=== PATIENT | male | born 1965 | race Caucasian/White ===

== ENCOUNTER 2021-12-04 08:26 | Inpatient (IN) ==
[2021-12-04] MEDS ORDERED: ACETAMINOPHEN 1,000 MG/100 ML VIAL IV STA (09:01)
[2021-12-04] MEDS: SODIUM CHLORIDE 0.9% 500 ML IV SCH ×2 (09:25→17:34)
--- NOTE | 2021-12-04 09:37 | Emergency Department Note ---
Impression & Plan Prostate cancer metastatic to bone, Lower extremity weakness, Urinary retention ED Provider Note NAME: TAMARA MONTAÑO AGE: 56 SEX: M ARRIVES VIA: Walk-In INFORMANT: Patient ED PROVIDER(S): Kunal Singleton MD CHIEF COMPLAINT: Back pain, leg weakness, metstatic prostate cancer PLAN: Disposition: Admit MEDICAL DECISION MAKING: The patient is a pleasant 56-year-old gentleman with a past medical history of metastatic prostate cancer being treated with Firmagon and Xfevea plus apalutamide with history of spinal metastases L2 in T9 status post palliative radiation therapy in September 2021 who presents emerged department accompanied by his with worsening back pain now with new lower extremity weakness rapidly progressing since Saturday Being seen in this emergency department Saturday evening for constipation and urinary retention for which she received had a Malin catheter placed which she currently has and was treated with enemas that eventually were successful. He denies fevers, chills, cough, congestion. He reports he has been able to ambulate prior to this past weekend and his weakness did progress rapidly. He denies any falls. On arrival the patient is no distress, afebrile to vital signs. He has 2/5 strength of bilateral lower extremities. There is no clonus. Reflexes within normal limits. There is no saddle anesthesia. WBC and platelets within normal limits. H/H 8.2/25.1 decreased from 2 days ago. Chemistry without metabolic acidosis. LFTs unremarkable. CPK within normal limits. Lipase is not elevated. UA without convincing evidence of infection. COVID-19 RNA, GRUPO test was negative. CT of the CT L-spine and abdomen pelvis were negative for acute findings. Note is made of question of diarrheal illn ess/gastroenteritis however likely reflects recent treatment of constipation. Patchy bibasilar densities and trace bilateral pleural effusions have progressed in the setting of the patient's cancer. Note is made of the patient's known metastatic disease, which appears stable. Given the patient's worsening symptoms or lower extremity weakness he does agree with plan for admission for further evaluation. Case was discussed with Dr. Golden, [facility] hospitalist, who will evaluate the patient for admission. Triage Nursing notes reviewed and agree them. Prior medical records reviewed Vital Signs: reviewed and remarkable for no significant abnormalities Differential diagnosis: Infection, dehydration, metabolic abnormality, hypo/hyperglycemia, electrolyte disturbance, anemia, hypoxia, cardiac sources, intracerebral event, toxicologic, neurologic, as well as other pathologies. ER treatment provided: See below. Diagnostics interpreted by me: Cardiac Monitoring: An order for continuous cardiac monitoring was placed and demonstrated sinus tachycardia, 104 bpm, no ectopy. Laboratory studies: See below Imaging studies: See below Consultation(s): Dr. Golden, [facility] hospitalist HPI: The patient is a pleasant 56-year-old gentleman with a past medical history of metastatic prostate cancer being treated with Firmagon and Xfevea plus apalutamide with history of spinal metastases L2 in T9 status post palliative radiation therapy in September 2021 who presents emerged department accompanied by his with worsening back pain now with new lower extremity weakness rapidly progressing since Saturday Being seen in this emergency department Saturday evening for constipation and urinary retention for which she received had a Malin catheter placed which she currently has and was treated with enemas that eventually were successful. He denies fevers, chills, cough, congestion. He reports he has been able to ambulate prior to this past weekend and his weakness did progress rapidly. He denies any falls. ROS: See above HPI for pertinent positives & negatives. A total of 10 systems reviewed and were otherwise negative. VITALS:See Below PHYSICAL EXAMINATION: GENERAL: Awake, alert, in no distress HENT: Normocephalic, atraumatic. Oropharynx with dry mucous membranes and otherwise unremarkable.. EYES: Normal conjunctiva. Sclera non-icteric. NECK: Supple. No nuchal rigidity. FROM. No JVD. RESPIRATORY: Clear to auscultation. CARDIAC: Regular rate, normal rhythm. Extremities warm and well perfused. Pulses equal. ABDOMEN: Soft, non-distended. No tenderness to palpation. No rebound or guarding. No masses. RECTAL: Deferred. MUSCULOSKELETAL: Chest examination reveals no tenderness. The back is symmetrical on inspection without obvious abnormality. There is no CVA tenderness to palpation. No joint edema. LOWER EXTREMITIES: Calves are equal size bilaterally and non-tender. No edema. No discoloration. NEURO: 2/5 strength of bilateral lower extremities. Sensation intact to light touch. There is no saddle anesthesia. Reflex within normal limits. There is no clonus. SKIN: No rash or jaundice noted. Kunal Singleton MD Past Med/Surg History Medical History Diabetes Diverticulosis GERD (gastroesophageal reflux disease) Hyperlipidemia Hypertension Prostate cancer Biopsy on 08/30/20 Prostate cancer metastatic to bone Surgical History H/O shoulder surgery Left History of appendectomy History of surgery 4 iliac stents Family History Mother , 83yo Myocardial infarction Pacemaker CHF (congestive heart failure) Father , 62yo Lymphoma Brother Myocardial infarction Cardiac stents Dialysis patient Smoker Alcohol abuse Sister Cancer 6 sisters - none with cancer Son Urinary reflux Son Urinary reflux Social History Smoking Status: Current every day smoker Tobacco Type: Cigarettes Cigarettes Per Day: 1-2 PPD x 43 yrs; Tobacco Cessation Education Requested by Patient: Yes Hx Alcohol Use: No Hx Substance Use: No Preferred Language: Bahraini Communication Ability: Effective Visual Impairment: No Limitations 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 Required: No Beliefs That Will Affect Care: None marital status: Current Living Situation: Spouse current occupational status: employed current occupation: [employer] How many Children do You have: 2 Other Information That Helps Us Care for You: No Feels Safe at Home: Yes Safety Concerns: Feels Safe At This Time caffeine: Yes (2-3 cups/day) during the past year weight has: remained stable Assistive Devices: None Allergies Allergies Allergy/AdvReac Type Severity Reaction Status Date / Time No Known Allergies Allergy Unknown Verified 10/23/21 10:33 Home Meds Home Medications Medication Instructions Recorded Confirmed coenzyme Q10 100 mg capsule 200 mg PO DAILY 07/20/21 12/04/21 famotidine 40 mg tablet (Pepcid) 40 mg PO DAILY 07/20/21 12/04/21 loratadine 10 mg tablet 10 mg PO DAILY 07/20/21 12/04/21 rosuvastatin 20 mg tablet 20 mg PO DAILY 07/20/21 12/04/21 aspirin 81 mg tablet,delayed 81 mg PO DAILY 09/29/21 12/04/21 release oxycodone-acetaminophen 10 mg-325 1 tab PO Q4H PRN Pain 10/03/21 12/04/21 mg tablet (Percocet) dexamethasone 4 mg tablet 4 mg PO Q6H PRN Nausea 10/23/21 12/04/21 ondansetron HCl 8 mg tablet 8 mg PO Q8H PRN Nausea 10/23/21 12/04/21 prednisone 5 mg tablet 10 mg PO QAM 10/23/21 12/04/21 prochlorperazine maleate 10 mg 10 mg PO Q6H PRN Nausea 10/23/21 12/04/21 tablet gabapentin 300 mg capsule 300 mg PO BID 12/03/21 12/04/21 morphine 30 mg tablet,extended 30 mg PO BID 12/03/21 12/04/21 release naloxegol 25 mg tablet (Movantik) 25 mg PO QAM 12/03/21 12/04/21 Results & Data (ED) Vital Signs Vital Signs - 24 hr 12/04/21 08:28 12/04/21 09:18 12/04/21 09:18 Temperature 36.7 C Temperature Source Temporal Artery Scan Pulse Rate 104 H Pulse Rate [Apical] 96 H Pulse Rate from SpO2 Sensor Pulse Rhythm [Apical] Pulse Strength [Apical] Respiratory Rate 18 14 Respiratory Effort / Characteristics Non-Labored Spontaneous Respiratory Depth Normal Respiratory Pattern Regular Blood Pressure 117/61 Blood Pressure [Left Arm] 133/79 Blood Pressure Mean 79 Blood Pressure Mean [Left Arm] 97 Blood Pressure Position Sitting Blood Pressure Position [Left Arm] Pulse Oximetry 95 93 Oxygen Delivery Method Room Air Room Air Room Air Oxygen Flow Rate Sepsis Recent Fever Within 48 Hours No Sepsis New/Unexplained Change in Mental Status N/A Sepsis Action Taken by Nursing No Action Required Oxygen Flow Rate - Titration Pulse Oximetry Post Tiitration 12/04/21 09:25 12/04/21 09:30 12/04/21 09:30 Temperature Temperature Source Pulse Rate 89 Pulse Rate [Apical] Pulse Rate from SpO2 Sensor 91 H Pulse Rhythm [Apical] Pulse Strength [Apical] Respiratory Rate 18 Respiratory Effort / Characteristics Respiratory Depth Respiratory Pattern Blood Pressure 139/76 Blood Pressure [Left Arm] Blood Pressure Mean 97 Blood Pressure Mean [Left Arm] Blood Pressure Position Blood Pressure Position [Left Arm] Pulse Oximetry 87 L 94 Oxygen Delivery Method Nasal Cannula Nasal Cannula Oxygen Flow Rate 0 2 Sepsis Recent Fever Within 48 Hours Sepsis New/Unexplained Change in Mental Status Sepsis Action Taken by Nursing Oxygen Flow Rate - Titration 2 Pulse Oximetry Post Tiitration 94 12/04/21 10:00 12/04/21 10:00 12/04/21 10:30 Temperature Temperature Source Pulse Rate 84 Pulse Rate [Apical] Pulse Rate from SpO2 Sensor 84 Pulse Rhythm [Apical] Pulse Strength [Apical] Respiratory Rate 16 Respiratory Effort / Characteristics Respiratory Depth Respiratory Pattern Blood Pressure 129/73 114/66 Blood Pressure [Left Arm] Blood Pressure Mean 91 82 Blood Pressure Mean [Left Arm] Blood Pressure Position Blood Pressure Position [Left Arm] Pulse Oximetry 96 Oxygen Delivery Method Nasal Cannula Oxygen Flow Rate 2 Sepsis Recent Fever Within 48 Hours Sepsis New/Unexplained Change in Mental Status Sepsis Action Taken by Nursing Oxygen Flow Rate - Titration Pulse Oximetry Post Tiitration 12/04/21 10:30 12/04/21 11:00 Temperature Temperature Source Pulse Rate 89 Pulse Rate [Apical] 84 Pulse Rate from SpO2 Sensor 88 Pulse Rhythm [Apical] Regular Pulse Strength [Apical] Normal Respiratory Rate 17 18 Respiratory Effort / Characteristics Non-Labored Respiratory Depth Normal Respiratory Pattern Regular Blood Pressure Blood Pressure [Left Arm] 132/71 Blood Pressure Mean Blood Pressure Mean [Left Arm] 91 Blood Pressure Position Blood Pressure Position [Left Arm] Lying Pulse Oximetry 92 98 Oxygen Delivery Method Nasal Cannula Room Air Oxygen Flow Rate 2 Sepsis Recent Fever Within 48 Hours Sepsis New/Unexplained Change in Mental Status Sepsis Action Taken by Nursing Oxygen Flow Rate - Titration Pulse Oximetry Post Tiitration Laboratory Data Attestation: I reviewed the patient's lab results. Result diagrams: 12/04/21 22:08 12/04/21 09:15 Lab Results 12/04/21 12/04/21 12/04/21 Range/Units 09:15 09:15 09:15 WBC 5.69 (4.8-10.8) K/ul RBC 2.94 L (4.63-6.08) M/uL Hgb 8.2 L (14.0-18.0) g/dl Hct 25.1 L (40.1-51.0) % MCV 85.4 (80.0-100.0) fL MCH 27.9 (25.0-34.0) pg MCHC 32.7 (32.0-36.0) g/dL RDW Std Deviation 52.9 H (36.4-46.3) fL RDW Coeff of Jasmyn 17.2 H (11.5-14.5) % Plt Count 150 (130-400) K/uL MPV 9.1 L (9.4-12.4) fL Immature Gran % (Auto) 4.4 % Neut % (Auto) 78.8 % Lymph % (Auto) 6.7 % [place] % (Auto) 9.3 % Eos % (Auto) 0.4 % Baso % (Auto) 0.4 % Neut # (Auto) 4.49 (1.4-6.5) K/uL Lymph # (Auto) 0.38 L (1.2-3.4) K/uL [place] # (Auto) 0.53 (0.24-0.82) K/uL Eos # (Auto) 0.02 (0-0.50) K/uL Baso # (Auto) 0.02 (0-0.2) K/uL Immature Gran # (Auto) 0.25 H (0.00-0.02) K/uL Absolute Nucleated RBC 0.02 H (0-0) K/uL Nucleated RBC % (auto) 0.4 % Sodium 134 L (136-145) mmol/L Potassium 3.4 L D (3.5-5.1) mmol/L Chloride 98 (98-107) mmol/L Carbon Dioxide 28 (21-32) mmol/L Anion Gap 8 (3-11) BUN 11 (6-23) mg/dl Creatinine 0.61 (0.6-1.4) mg/dl Est Cr Clr Drug Dosing 120.6 ml/min Est GFR ( Amer) 128.5 ml/min Est GFR (Non-Af Amer) 110.9 ml/min BUN/Creatinine Ratio 18.0 (10-20) Glucose 110 H (70-99(Fasting)) mg/dl Calcium 7.7 L (8.5-10.1) mg/dl Phosphorus 3.2 (2.5-4.9) mg/dl Magnesium 2.0 (1.7-2.4) mg/dl Iron 53 (35-175) mcg/dl TIBC 218 L (250-450) mcg/dl Unsaturated IBC 165 (155-355) mcg/dl Transferrin % Sat 24 (20-50) % Total Bilirubin 0.4 (0.2-1.0) mg/dl AST 26 (13-39) U/L ALT 21 (7-52) U/L Alkaline Phosphatase 139 H (34-104) U/L Total Creatine Kinase 152 (30-223) U/L Total Protein 5.7 L D (6.0-8.3) gm/dl Albumin 3.1 L (3.4-5.0) gm/dl Globulin 2.6 (2.5-4.0) gm/dl Albumin/Globulin Ratio 1.2 (0.9-2) Lipase < 3 L (11-82) U/L Vitamin B12 (180-914) pg/ml Folate (>5.38) ng/ml Urine Color Urine Appearance (Clear) Urine pH (4.5-7.5) Ur Specific [place] (1.000-1.030) Urine Protein (Negative) Urine Glucose (UA) (Negative) Urine Ketones (Negative) Urine Blood (Negative) Urine Nitrite (Negative) Urine Bilirubin (Negative) Urine Urobilinogen (Negative) Ur Leukocyte Esterase (Negative) SARS-CoV-2, RNA, NAAT (NEGATIVE) 12/04/21 12/04/21 12/04/21 Range/Units 09:15 09:20 10:06 WBC (4.8-10.8) K/ul RBC (4.63-6.08) M/uL Hgb (14.0-18.0) g/dl Hct (40.1-51.0) % MCV (80.0-100.0) fL MCH (25.0-34.0) pg MCHC (32.0-36.0) g/dL RDW Std Deviation (36.4-46.3) fL RDW Coeff of Jasmyn (11.5-14.5) % Plt Count (130-400) K/uL MPV (9.4-12.4) fL Immature Gran % (Auto) % Neut % (Auto) % Lymph % (Auto) % [place] % (Auto) % Eos % (Auto) % Baso % (Auto) % Neut # (Auto) (1.4-6.5) K/uL Lymph # (Auto) (1.2-3.4) K/uL [place] # (Auto) (0.24-0.82) K/uL Eos # (Auto) (0-0.50) K/uL Baso # (Auto) (0-0.2) K/uL Immature Gran # (Auto) (0.00-0.02) K/uL Absolute Nucleated RBC (0-0) K/uL Nucleated RBC % (auto) % Sodium (136-145) mmol/L Potassium (3.5-5.1) mmol/L Chloride (98-107) mmol/L Carbon Dioxide (21-32) mmol/L Anion Gap (3-11) BUN (6-23) mg/dl Creatinine (0.6-1.4) mg/dl Est Cr Clr Drug Dosing ml/min Est GFR ( Amer) ml/min Est GFR (Non-Af Amer) ml/min BUN/Creatinine Ratio (10-20) Glucose (70-99(Fasting)) mg/dl Calcium (8.5-10.1) mg/dl Phosphorus (2.5-4.9) mg/dl Magnesium (1.7-2.4) mg/dl Iron (35-175) mcg/dl TIBC (250-450) mcg/dl Unsaturated IBC (155-355) mcg/dl Transferrin % Sat (20-50) % Total Bilirubin (0.2-1.0) mg/dl AST (13-39) U/L ALT (7-52) U/L Alkaline Phosphatase (34-104) U/L Total Creatine Kinase (30-223) U/L Total Protein (6.0-8.3) gm/dl Albumin (3.4-5.0) gm/dl Globulin (2.5-4.0) gm/dl Albumin/Globulin Ratio (0.9-2) Lipase (11-82) U/L Vitamin B12 250 (180-914) pg/ml Folate 6.04 (>5.38) ng/ml Urine Color Yellow Urine Appearance Clear (Clear) Urine pH 7.0 (4.5-7.5) Ur Specific [place] 1.004 (1.000-1.030) Urine Protein Negative (Negative) Urine Glucose (UA) Negative (Negative) Urine Ketones Negative (Negative) Urine Blood Negative (Negative) Urine Nitrite Negative (Negative) Urine Bilirubin Negative (Negative) Urine Urobilinogen Negative (Negative) Ur Leukocyte Esterase Negative (Negative) SARS-CoV-2, RNA, NAAT NEGATIVE (NEGATIVE) Administered Medications Gabapentin (Gabapentin 300 Mg Cap) 300 mg PO BID ANGEL Stop: 01/03/22 20:59 Last Admin: 12/04/21 21:48 Dose: 300 mg Documented By: MACIE Morphine Sulfate (Morphine Sulfate Cr 15 Mg Tabcr) 30 mg PO BID ANGEL Stop: 12/18/21 20:59 Last Admin: 12/04/21 21:47 Dose: 30 mg Documented By: MACIE Oxycodone/Acetaminophen (Oxycodone/Acetaminophen 10-325 Tab) 1 tab PO Q4H PRN PRN Reason: Pain Stop: 12/18/21 16:57 Last Admin: 12/04/21 18:42 Dose: 1 tab Documented By: QG Discontinued Medications Sodium Chloride (Nss) 500 mls @ 125 mls/hr IV .Q4H ANGEL Stop: 01/03/22 09:14 Last Admin: 12/04/21 17:34 Dose: Not Given Documented By: Infusion: 12/04/21 13:49 Dose: 0 mls/hr Documented By: Admin: 12/04/21 09:25 Dose: 125 mls/hr Documented By: DAIN Acetaminophen (Ofirmev) 1,000 mg in 100 mls @ 400 mls/hr IV NOW STA Stop: 12/04/21 09:15 Last Infusion: 12/04/21 09:40 Dose: 0 mls/hr Documented By: Admin: 12/04/21 09:25 Dose: 400 mls/hr Documented By: DAIN Ioversol (Optiray 320 500ml) 98 ml IV ONCE ONE Stop: 12/04/21 11:04 Last Admin: 12/04/21 11:04 Dose: 98 ml Documented By: DANNY Potassium Chloride (Potassium Chloride Crtab 20 Meq Tabcr) 40 meq PO NOW STA Stop: 12/04/21 13:08 Last Admin: 12/04/21 13:24 Dose: 40 meq Documented By: VY Imaging Data Radiologist's Impression: Abdomen/Pelvis CT 12/04/21 08:[address] WITH IV CONTRAST CT DOSE: HISTORY: Metastatic disease bilateral lower extremity weakness, back pain, retenti TECHNIQUE: Multiaxial CT images of the abdomen and pelvis were performed following the use of intravenous contrast. A dose lowering technique was utilized adhering to the principles of ALARA. COMPARISON STUDY: Abdomen and pelvis CT 12/02/2021. FINDINGS: There are trace bilateral pleural effusions which are new from the prior study. Patchy bilateral lower lobe densities have also slightly progressed. There is emphysema again noted at the lung bases. Small nodular densities along the right minor fissure remain stable. No pneumoperitoneum. No pneumatosis. Multifocal osteoblastic metastatic disease is similar to the prior CT examination. No acute fractures identified. There again noted a few scattered hypodense lesions within the liver. These are better appreciated on this examination likely due to the time of contrast. There are 2 tandem lesions identified. These likely represent metastatic disease. There are few punctate gallstones. No gallbladder wall thickening. The spleen and right adrenal gland are unremarkable. A 2.1 cm left adrenal gland nodules again noted. There are few prominent left para-aortic lymph nodes, unchanged. These are concerning for metastatic disease. The kidneys enhance normally. No hydronephrosis. Bilateral common iliac artery stents are patent. No pelvic lymphadenopathy. There is a Malin catheter within the bladder. There is mild bladder wall thickening. Fluid- filled nondilated loops of large and small bowel seen throughout the abdomen. No evidence for a bowel obstruction. IMPRESSION: 1. Redemonstration of the metastatic disease within the abdomen and pelvis as de scribed above. This is similar to the prior study. 2. Fluid-filled nondilated loops of large and small bowel. This can be seen in the setting of a gastroenteritis/diarrheal illness. No evidence for bowel obstruction. 3. Cholelithiasis. 4. Patchy bibasilar densities and trace bilateral pleural effusions have progressed. This could represent atelectasis or a pneumonia. 5. Bladder wall thickening. This may represent a cystitis. Recommend correlation with urinalysis. ACT 112: Negative or not required by law. Electronically signed by: Francisco Javier Navarrete M.D. 12/04/2021 12:[address] 12/04/21 08:58 CT cervical spine wo con CLINICAL HISTORY: 56 years-old Male with metstatic disease BLE weakness, back pain, retenti. Acute neck pain with upper extremity weakness in a patient with skeletal metastasis COMPARISON: CT thoracic spine of same day, MRI thoracic spine 11/14/2021 TECHNIQUE: Multiple axial CT images of the cervical spine were obtained without contrast. A dose lowering technique was utilized adhering to the principles of ALARA. FINDINGS: Multifocal osteoblastic skeletal metastasis redemonstrated. Mild superior endplate compression again noted at C7, T1 and T2 which is similar to the prior study. There is mild multilevel intervertebral disc space narrowing and spondylitic spurring with [id number] facet arthrosis. No acute fracture, subluxation or endplate erosion identified. No pneumothorax. Emphysematous changes of the lung apices without pneumothorax. There is no prevertebral edema of the cervical spine. There is however mild paravertebral edema of the upper thoracic spine which was also present on the comparison MRI. No high-grade central canal or neural foraminal narrowing of the cervical spine identified. IMPRESSION: 1. Multifocal osteoblastic skeletal metastasis redemonstrated. No acute pathologic fracture identified. 2. Unchanged appearance of the mild C7, T1 and T2 compression deformities. 3. Upper thoracic paravertebral edema is similar to the 11/14/2021 MRI exam. 4. Pulmonary emphysema. ACT 112: Negative or not required by law. The above report was generated using voice recognition software. It may contain grammatical, syntax or spelling errors. Electronically signed by: Rick Moreno M.D. 12/04/2021 11:[address] 12/04/21 08:58 CT lumbar spine wo con CLINICAL HISTORY: metstatic disease BLE weakness, back pain, retenti TECHNIQUE: Multidetector row helical CT of the lumbar spine was performed without administration of intravenous contrast. Coronal and sagittal reformations were obtained. Automated dose lowering techniques and/or adjustment according to patient size were utilized for this exam. Comparison: Comparison is made to CT abdomen pelvis 07/07/2021 FINDINGS: For counting purposes, the last complete intervertebral disc space is considered L5-S1.Numerous sclerotic foci are seen throughout the skeleton. These are stable to minimally enlarged from prior CT. For example, a 19 mm focus of the superior aspect of the L1 vertebral body previously measured 18 mm. Mild degenerative changes are seen most prominent at L3-L4. Please see CT abdomen pelvis for detailed findings of the soft tissues. IMPRESSION: Numerous sclerotic foci within the skeleton are stable to minimally enlarged from prior exam compatible with metastatic disease. No evidence of acute fracture. ACT 112: Negative or not required by law. Electronically signed by: Gonzalez Vallejo M.D. 12/04/2021 11:[address] 12/04/21 08:[address] DOSE: 2333.11 mGy.cm HISTORY: metastatic disease with bilateral lower extremity weakness, back pain, retention TECHNIQUE: Multiaxial CT images of the thoracic spine were performed and reformatted in the sagittal and coronal plane without the use of contrast. A dose lowering technique was utilized adhering to the principles of ALARA. COMPARISON: Outside hospital thoracic spine MRI 11/14/2021. FINDINGS: Redemonstration of the extensive multifocal osteoblastic metastatic disease seen throughout the thoracic spine. This is similar to the prior outside hospital thoracic spine MRI. Mild super endplate compression at C7, T1, T2, and T3 is similar to the prior study. This is likely chronic. No acute fractures identified within the thoracic spine. Paravertebral edema and soft tissue thickening from the T1-T8 level is again noted and is consistent with metastatic disease. This is best seen at the T5-T6 levels which demonstrates up to 8 mm of prevertebral soft tissue thickening. There is associated epidural soft tissue from the T3-T8 levels also consistent with metastatic disease. This epidural soft tissue results in [id number] central canal narrowing within the upper to mid thoracic spine most pronounced at the T5-T6 level. The transverse diameter of the thecal sac at this level is approximately 7 mm this is also similar to the prior study. There are trace bilateral pleural effusions. Emphysema. Patchy densities within the lung bases posteriorly may represent atelectasis. A pneumonia could also have a similar appearance. IMPRESSION: 1. Redemonstration of extensive multifocal osteoblastic metastatic disease seen throughout the thoracic spine and visualized ribs. This is similar to the prior outside hospital MRI. 2. There is also abnormal paravertebral and epidural soft tissue from the T1-T8 levels consistent with metastatic disease. The epidural component is most pronounced at the T5-T6 level which results in moderate central canal narrowing. This is also similar to the prior outside hospital MRI. 3. Trace bilateral pleural effusions. 4. Mild superior endplate compression deformities at C7, T1, T2, T3 are also similar to the prior study. No acute fractures identified. 5. Additional findings as described above. ACT 112: Negative or not required by law. Electronically signed by: Francisco Javier Navarrete M.D. 12/04/2021 12:15 PM Discharge Plan Visit Data Chief Complaint: Leg Weakness, Bilateral Stated Complaint: LEG PAIN, UNABLE TO MOVE ED Provider: Kunal Singleton Discharge Problem: Prostate cancer metastatic to bone, Lower extremity weakness, Urinary retention Patient Disposition: Admitted As Inpatient Discharge Instructions Interventions: ED Discharge Assessment Last Done: 12/04/21 16:34
[2021-12-04 09:38] LABS: Basophils # (auto) 0.02 K/uL (0-0.2); Basophils % (auto) 0.4 %; Eosinophils # (auto) 0.02 K/uL (0-0.50); Eosinophils % (auto) 0.4 %; Hematocrit (blood only) 25.1 % (40.1-51.0); Hemoglobin 8.2 g/dl (14.0-18.0); Immature Granulocytes # (auto) 0.25 K/uL (0.00-0.02); Immature Granulocytes % (auto) 4.4 %; Lymphocytes # (auto) 0.38 K/uL (1.2-3.4); Lymphocytes % (auto) 6.7 %; Mean Corpuscular Hemoglobin 27.9 pg (25.0-34.0); Mean Corpuscular Hgb Conc 32.7 g/dL (32.0-36.0); Mean Corpuscular Volume 85.4 fL (80.0-100.0); Mean Platelet Volume 9.1 fL (9.4-12.4); Monocytes # (auto) 0.53 K/uL (0.24-0.82); Monocytes % (auto) 9.3 %; Neutrophils # (auto) 4.49 K/uL (1.4-6.5); Neutrophils % (auto) 78.8 %; Nucleated RBC # (auto) 0.02 K/uL (0-0); Nucleated RBC % (auto) 0.4 %; Platelet Count 150 K/uL (130-400); RDW Coefficient of Variation 17.2 % (11.5-14.5); RDW Standard Deviation 52.9 fL (36.4-46.3); Red Blood Count 2.94 M/uL (4.63-6.08); White Blood Count 5.69 K/ul (4.8-10.8)
[2021-12-04 10:15] LABS: Appearance Urine Clear (Clear); Bilirubin Urine Negative (Negative); Blood Urine Negative (Negative); Color Urine Yellow; Glucose Urine UA Negative (Negative); Ketones Urine Negative (Negative); Leukocyte Esterase Urine Negative (Negative); Nitrite Urine Negative (Negative); Protein Urine Negative (Negative); Specific Gravity Urine 1.004 (1.000-1.030); Urobilinogen Urine Negative (Negative)
[2021-12-04 10:18] LABS: Alanine Aminotransferase 21 U/L (7-52); Albumin Globulin Ratio 1.2 (0.9-2); Albumin Level 3.1 gm/dl (3.4-5.0); Alkaline Phosphatase 139 U/L (34-104); Anion Gap 8 (3-11); Aspartate Aminotransferase 26 U/L (13-39); Bilirubin,Total 0.4 mg/dl (0.2-1.0); Blood Urea Nitrogen 11 mg/dl (6-23); Calcium 7.7 mg/dl (8.5-10.1); Carbon Dioxide 28 mmol/L (21-32); Chloride 98 mmol/L (98-107); Creatine Kinase 152 U/L (30-223); Creatinine Clr Calc Pharmacy 120.6 ml/min; Est GFR (African American) 128.5 ml/min; Est GFR (Non-African American) 110.9 ml/min; Globulin 2.6 gm/dl (2.5-4.0); Glucose 110 mg/dl (70-99(Fasting)); Lipase < 3 U/L (11-82); Phosphorus 3.2 mg/dl (2.5-4.9); Potassium 3.4 mmol/L (3.5-5.1); Sodium 134 mmol/L (136-145); Total Protein 5.7 gm/dl (6.0-8.3)
[2021-12-04] MEDS ORDERED: OPTIRAY 320 500ml IV ONE (11:03)
--- NOTE | 2021-12-04 11:16 | CT Scan Report ---
CT cervical spine wo con CLINICAL HISTORY: 56 years-old Male with metstatic disease BLE weakness, back pain, retenti. Acute n demetrio pain with upper extremity weakness in a patient with skeletal metastasis COMPARISON: CT thoracic spine of same day, MRI thoracic spine 11/14/2021 TECHNIQUE: Multiple axial CT images of the cervical spine were obtained without contrast. A dose low ering technique was utilized adhering to the principles of ALARA. FINDINGS: Multifocal osteoblastic skeletal metastasis redemonstrated. Mild superior endplate compress ion again noted at C7, T1 and T2 which is similar to the prior study. There is mild multilevel interv ertebral disc space narrowing and spondylitic spurring with [id number] facet arthrosis. No acut e fracture, subluxation or endplate erosion identified. No pneumothorax. Emphysematous changes of the lung apices without pneumothorax. There is no preverteb ral edema of the cervical spine. There is however mild paravertebral edema of the upper thoracic spin e which was also present on the comparison MRI. No high-grade central canal or neural foraminal narro wing of the cervical spine identified. IMPRESSION: 1. Multifocal osteoblastic skeletal metastasis redemonstrated. No acute pathologic fracture identifie d. 2. Unchanged appearance of the mild C7, T1 and T2 compression deformities. 3. Upper thoracic paravertebral edema is similar to the 11/14/2021 MRI exam. 4. Pulmonary emphysema. ACT 112: Negative or not required by law. The above report was generated using voice recognition software. It may contain grammatical, syntax o r spelling errors. Electronically signed by: Rick Moreno M.D. 12/04/2021 11:14 AM
--- NOTE | 2021-12-04 11:17 | CT Scan Report ---
CT lumbar spine wo con CLINICAL HISTORY: metstatic disease BLE weakness, back pain, retenti TECHNIQUE: Multidetector row helical CT of the lumbar spine was performed without administration of i ntravenous contrast. Coronal and sagittal reformations were obtained. Automated dose lowering techniq ues and/or adjustment according to patient size were utilized for this exam. Comparison: Comparison is made to CT abdomen pelvis 07/07/2021 FINDINGS: For counting purposes, the last complete intervertebral disc space is considered L5-S1.Numerous scler otic foci are seen throughout the skeleton. These are stable to minimally enlarged from prior CT. For example, a 19 mm focus of the superior aspect of the L1 vertebral body previously measured 18 mm. Mi ld degenerative changes are seen most prominent at L3-L4. Please see CT abdomen pelvis for detailed f indings of the soft tissues. IMPRESSION: Numerous sclerotic foci within the skeleton are stable to minimally enlarged from prior exam compatib le with metastatic disease. No evidence of acute fracture. ACT 112: Negative or not required by law. Electronically signed by: Gonzalez Vallejo M.D. 12/04/2021 11:15 AM
--- NOTE | 2021-12-04 12:17 | CT Scan Report ---
THORACIC SPINE CT CT DOSE: 2333.11 mGy.cm HISTORY: metastatic disease with bilateral lower extremity weakness, back pain, retention TECHNIQUE: Multiaxial CT images of the thoracic spine were performed and reformatted in the sagittal and coronal plane without the use of contrast. A dose lowering technique was utilized adhering to e principles of ALARA. COMPARISON: Outside hospital thoracic spine MRI 11/14/2021. FINDINGS: Redemonstration of the extensive multifocal osteoblastic metastatic disease seen throughout the thoracic spine. This is similar to the prior outside hospital thoracic spine MRI. Mild super end plate compression at C7, T1, T2, and T3 is similar to the prior study. This is likely chronic. No acu te fractures identified within the thoracic spine. Paravertebral edema and soft tissue thickening fro m the T1-T8 level is again noted and is consistent with metastatic disease. This is best seen at the T5-T6 levels which demonstrates up to 8 mm of prevertebral soft tissue thickening. There is associate d epidural soft tissue from the T3-T8 levels also consistent with metastatic disease. This epidural s oft tissue results in exkb-xl-zsmbelwu central canal narrowing within the upper to mid thoracic spine most pronounced at the T5-T6 level. The transverse diameter of the thecal sac at this level is appro ximately 7 mm this is also similar to the prior study. There are trace bilateral pleural effusions. E mphysema. Patchy densities within the lung bases posteriorly may represent atelectasis. A pneumonia c ould also have a similar appearance. IMPRESSION: 1. Redemonstration of extensive multifocal osteoblastic metastatic disease seen throughout the thorac ic spine and visualized ribs. This is similar to the prior outside hospital MRI. 2. There is also abnormal paravertebral and epidural soft tissue from the T1-T8 levels consistent wit h metastatic disease. The epidural component is most pronounced at the T5-T6 level which results in m oderate central canal narrowing. This is also similar to the prior outside hospital MRI. 3. Trace bilateral pleural effusions. 4. Mild superior endplate compression deformities at C7, T1, T2, T3 are also similar to the prior karlos dy. No acute fractures identified. 5. Additional findings as described above. ACT 112: Negative or not required by law. Electronically signed by: Francisco Javier Navarrete M.D. 12/04/2021 12:15 PM
--- NOTE | 2021-12-04 12:28 | CT Scan Report ---
ABDOMEN AND PELVIS CT WITH IV CONTRAST CT DOSE: HISTORY: Metastatic disease bilateral lower extremity weakness, back pain, retenti TECHNIQUE: Multiaxial CT images of the abdomen and pelvis were performed following the use of intrave nous contrast. A dose lowering technique was utilized adhering to the principles of ALARA. COMPARISON STUDY: Abdomen and pelvis CT 12/02/2021. FINDINGS: There are trace bilateral pleural effusions which are new from the prior study. Patchy bila teral lower lobe densities have also slightly progressed. There is emphysema again noted at the lung bases. Small nodular densities along the right minor fissure remain stable. No pneumoperitoneum. No p neumatosis. Multifocal osteoblastic metastatic disease is similar to the prior CT examination. No acu te fractures identified. There again noted a few scattered hypodense lesions within the liver. These are better appreciated on this examination likely due to the time of contrast. There are 2 tandem les ions identified. These likely represent metastatic disease. There are few punctate gallstones. No gal lbladder wall thickening. The spleen and right adrenal gland are unremarkable. A 2.1 cm left adrenal gland nodules again noted. There are few prominent left para-aortic lymph nodes, unchanged. These are concerning for metastatic disease. The kidneys enhance normally. No hydronephrosis. Bilateral common iliac artery stents are patent. No pelvic lymphadenopathy. There is a Malin catheter within the blad erika. There is mild bladder wall thickening. Fluid-filled nondilated loops of large and small bowel se en throughout the abdomen. No evidence for a bowel obstruction. IMPRESSION: 1. Redemonstration of the metastatic disease within the abdomen and pelvis as described above. This i s similar to the prior study. 2. Fluid-filled nondilated loops of large and small bowel. This can be seen in the setting of a gastr oenteritis/diarrheal illness. No evidence for bowel obstruction. 3. Cholelithiasis. 4. Patchy bibasilar densities and trace bilateral pleural effusions have progressed. This could repre sent atelectasis or a pneumonia. 5. Bladder wall thickening. This may represent a cystitis. Recommend correlation with urinalysis. ACT 112: Negative or not required by law. Electronically signed by: Francisco Javier Navarrete M.D. 12/04/2021 12:26 PM
[2021-12-04] MEDS ORDERED: MAGNESIUM HYDROXIDE SUSP 30 ML UDC PO PRN (13:07)
[2021-12-04] MEDS ORDERED: POTASSIUM CHLORIDE CRTAB 20 MEQ TABCR PO STA (13:07)
--- NOTE | 2021-12-04 13:26 | History & Physical Report ---
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 Admitting vitals are stable, admitting imagings [CTAP/cervical CT/lumbar CT/thoracic CT] reviewed with multiple metastasis noted. Monitor replete electrolytes, PT/OT when able. Neurology consult, continue to monitor over telemetry. Ac on chr anemia: Baseline hemoglobin appears around 10-11, admitting hemoglobin of 8.2, Fe panel, vitamin B12 and folate level, hnh at 10 pm and in AM, fobt. Hold DVT prophylaxis anticoagulation for now, can resume if hemoglobin deemed stable. 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 Follows dr meyers & palliative as OP. Reports pain under control, imagings with multiple metastasis, continue home pain medications. Tobacco use disorder: Current tobaco use, since age 13, 1 ppd, declined nicotine patch, counselled. DVT px; Start chemo Px once H&H is deemed stable, follow HnH closely Full code. History of Present Illness Chief Complaint: Progressive BLE weakness Primary Care Provider: Yoselin Sampson MD 56 yo M w/ PMH of metastatic castration resistant adenocarcinoma prostate diagnosed August 2020 [status post hormonal therapy and radiation, currently undergoing chemo, follows Dr. Meyers], tobacco use disorder, PAD, HLD, CAD, hyperplastic polyp of descending colon, GERD, HTN presented to our ED 12/04/2021 with complaint of progressive weakness of both lower extremities. Per patient, he was ambulating okay prior to 12/02/2021, he started feeling weak in his both lower extremities, progressing daily, now he cannot stand due to weakness, and falls. He denies any loss of control over bowel or bladder movement, he denies any worsening pain, he does have chronic pain due to cancer status/bone metastasis which are under control with pain medications. Patient denies headache or sore throat or cough. Patient does report some occasional short of breath likely secondary to pain when trying to move in bed, patient reported feeling some dizziness on and off, ongoing weakness/tired feeling/exertion lately. Patient reports appetite okay, denies nausea or vomiting. 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 Patient denies fever chills. Of note, patient presented to the ED over the weekend due to problems with passing urine and moving bowels, was put on Malin at the time and given laxatives, patient currently on Malin, and reports moving bowels okay now. Patient is a current smoker, smokes 1 packs a day. Has not drank any alcohol in the last 6 months, used to drink occasionally. Denies any use of recreational drugs or marijuana. 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 Full code Medications reviewed with the patient personally. Allergies Allergy/AdvReac Type Severity Reaction Status Date / Time No Known Allergies Allergy Unknown Verified 10/23/21 10:33 Home Medications Medication Instructions Recorded Confirmed Type coenzyme Q10 100 mg capsule 200 mg PO DAILY 07/20/21 12/04/21 History famotidine 40 mg tablet (Pepcid) 40 mg PO DAILY 07/20/21 12/04/21 History loratadine 10 mg tablet 10 mg PO DAILY 07/20/21 12/04/21 History rosuvastatin 20 mg tablet 20 mg PO DAILY 07/20/21 12/04/21 History aspirin 81 mg tablet,delayed 81 mg PO DAILY 09/29/21 12/04/21 History release oxycodone-acetaminophen 10 mg-325 1 tab PO Q4H PRN Pain 10/03/21 12/04/21 History mg tablet (Percocet) dexamethasone 4 mg tablet 4 mg PO Q6H PRN Nausea 10/23/21 12/04/21 History ondansetron HCl 8 mg tablet 8 mg PO Q8H PRN Nausea 10/23/21 12/04/21 History prednisone 5 mg tablet 10 mg PO QAM 10/23/21 12/04/21 History prochlorperazine maleate 10 mg 10 mg PO Q6H PRN Nausea 10/23/21 12/04/21 History tablet gabapentin 300 mg capsule 300 mg PO BID 12/03/21 12/04/21 History morphine 30 mg tablet,extended 30 mg PO BID 12/03/21 12/04/21 History release naloxegol 25 mg tablet (Movantik) 25 mg PO QAM 10/16/22 10/17/22 History Past Med/Surg History Medical History Diabetes Diverticulosis GERD (gastroesophageal reflux disease) Hyperlipidemia Hypertension Prostate cancer Biopsy on 08/30/20 Prostate cancer metastatic to bone Surgical History H/O shoulder surgery Left History of appendectomy History of surgery 4 iliac stents Family History Mother , 83yo Myocardial infarction Pacemaker CHF (congestive heart failure) Father , 62yo Lymphoma Brother Myocardial infarction Cardiac stents Dialysis patient Smoker Alcohol abuse Sister Cancer 6 sisters - none with cancer Son Urinary reflux Son Urinary reflux Social History Smoking Status: Current every day smoker Tobacco Type: Cigarettes Cigarettes Per Day: 1-2 PPD x 43 yrs; Hx Alcohol Use: Yes (Social) Hx Substance Use: No Preferred Language: Croatian Communication Ability: Effective Visual Impairment: No 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 Physical Exam Physical Exam: GENERAL: Alert and oriented x3. NAD, on 2L NC O2. HEENT: No pallor, no icterus. Pupils equal, round and reactive to light. Oral mucosa moist. NECK: No JVD, no neck masses. HEART: S1 and S2 heard. Regular rate and rhythm. No murmur, no gallop. RESPIRATORY SYSTEM: Normal AP diameter. No accessory muscle use. No wheezing, no crackles. ABDOMEN: Soft, bowel sounds present, nontender, no distention. CENTRAL NERVOUS SYSTEM: No facial droop. Speech is clear. Obeys simple commands. Moves extremities. EXTREMITIES: Trace/1+ edema, no erythema seen. Power: 2/5 BLE w/ 1-2/5 dorsiflexion of foot and 4/5 plantar flexion Results & Data Results & Data ([facility]) Vital Signs (Past 12 Hours) Vital Signs Temp Pulse Pulse Resp BP BP Pulse Ox 12/04/21 11:00 84 18 132/71 98 12/04/21 10:30 89 17 92 12/04/21 10:30 114/66 12/04/21 10:00 84 16 96 12/04/21 10:00 129/73 12/04/21 09:30 89 18 94 12/04/21 09:30 139/76 12/04/21 09:25 87 L 12/04/21 09:18 96 H 14 133/79 93 12/04/21 09:18 12/04/21 08:28 36.7 C 104 H 18 117/61 95 O2 Del Method O2 Flow Rate 12/04/21 11:00 Room Air 12/04/21 10:30 Nasal Cannula 2 12/04/21 10:30 12/04/21 10:00 Nasal Cannula 2 12/04/21 10:00 12/04/21 09:30 Nasal Cannula 2 12/04/21 09:30 12/04/21 09:25 Nasal Cannula 0 12/04/21 09:18 Room Air 12/04/21 09:18 Room Air 12/04/21 08:28 Room Air
[2021-12-04 13:37] LABS: Iron 53 mcg/dl (35-175); Total Iron Binding Cap Calc 218 mcg/dl (250-450); Transferrin (FE) Percent Satur 24 % (20-50); Unsaturated Iron Binding Cap 165 mcg/dl (155-355)
[2021-12-04] MEDS ORDERED: PROCHLORPERAZINE MALEATE 10 MG TAB PO PRN (16:58)
[2021-12-04] MEDS ORDERED: dexAMETHasone 4 MG TAB PO PRN (16:58)
[2021-12-04] MEDS ORDERED: ONDANSETRON 4 MG OD TAB PO PRN (17:13)
[2021-12-04] MEDS: oxyCODONE/ACETAMINOPHEN 10-325 TAB PO PRN ×2 (18:42→23:13)
[2021-12-04] MEDS ORDERED: HEPARIN SOD 5,000 UNIT/0.5 ML VIAL SQ SCH (21:00)
[2021-12-04] MEDS: MoRPHine SULFATE CR 15 MG TABCR PO SCH (21:47)
[2021-12-04] MEDS: GABAPENTIN 300 MG CAP PO SCH (21:48)
[2021-12-04 22:24] LABS: Hematocrit (blood only) 27.5 % (40.1-51.0); Hemoglobin 8.9 g/dl (14.0-18.0)
[2021-12-05] MEDS: NICOTINE 21 MG/24 HR TDSY TD SCH ×2 (02:13→07:47)
[2021-12-05] MEDS: oxyCODONE/ACETAMINOPHEN 10-325 TAB PO PRN ×4 (03:13→20:00)
[2021-12-05] MEDS: MoRPHine SULFATE CR 15 MG TABCR PO SCH ×2 (07:43→20:54)
[2021-12-05] MEDS: GABAPENTIN 300 MG CAP PO SCH ×2 (07:46→20:54)
[2021-12-05] MEDS: ASPIRIN 81 MG ECTAB PO SCH (07:46)
[2021-12-05] MEDS: ROSUVASTATIN CALCIUM 20 MG TAB PO SCH (07:47)
[2021-12-05] MEDS: LORATADINE 10 MG TAB PO SCH (07:47)
[2021-12-05] MEDS: predniSONE 10 MG TABLET PO SCH (07:47)
[2021-12-05] MEDS: FAMOTIDINE 40 MG TABLET PO SCH (07:47)
[2021-12-05 07:56] LABS: Hematocrit (blood only) 26.8 % (40.1-51.0); Hemoglobin 8.6 g/dl (14.0-18.0); Mean Corpuscular Hemoglobin 27.7 pg (25.0-34.0); Mean Corpuscular Hgb Conc 32.1 g/dL (32.0-36.0); Mean Corpuscular Volume 86.5 fL (80.0-100.0); Mean Platelet Volume 9.4 fL (9.4-12.4); Nucleated RBC # (auto) 0.05 K/uL (0-0); Nucleated RBC % (auto) 0.8 %; Platelet Count 147 K/uL (130-400); RDW Coefficient of Variation 17.4 % (11.5-14.5); RDW Standard Deviation 53.8 fL (36.4-46.3)
[2021-12-05 08:33] LABS: Creatinine Clr Calc Pharmacy 138.8 ml/min; Est GFR (African American) 136.1 ml/min; Est GFR (Non-African American) 117.5 ml/min; Magnesium 2.2 mg/dl (1.7-2.4); Phosphorus 2.4 mg/dl (2.5-4.9); Potassium 4.3 mmol/L (3.5-5.1)
[2021-12-05] MEDS ORDERED: NON-FORMULARY MEDICATION (Coenzyme Q10 100 mg capsule) PO SCH (09:00)
[2021-12-05] MEDS: MOVANTIK PO SCH (12:12)
[2021-12-05] MEDS ORDERED: HYDROmorphone INJ 2 MG/ML SYR/VIAL IV PRN (16:52)
--- NOTE | 2021-12-05 16:56 | Neurology Consultation ---
Date of Consultation December 05, 2021 Assessment & Plan (1) Paraparesis of both lower limbs: Impression: The patient has history of metastatic prostate cancer, with extensive spinal osseous metastases and spinal canal narrowing, who presents with new onset lower extremity weakness and some new sensory deficit. He also has urinary retention. Such symptoms suggestive of myelopathy which can be compressive or metastatic. Bony and epidural metastases are common and prostate cancer, but very occasional intraluminal cord metastases. Based on the patient's history of spinal radiation, radiation induced myelopathy is in differential. Lumbar spine radiation therapy versus compression might cause cauda equina syndrome. Based on the patient's bandlike thoracic sensory alteration, the most likely pathology at thoracic spinal region. Due to new paraparesis, progression of metastatic spinal disease should be investigated further with MRI. Plan/recommendations: Whole spine MRI with and without contrast. After MRI results, we should contact with the patient's oncologist and radiation oncology. Further recommendation after MRI results. (2) Prostate cancer metastatic to bone: Impression: The patient was diagnosed with prostate cancer in August 2020.He has been on chemotherapy with Firmagon, Xfevea plus apalutamide and received radiation therapy to the lumbar, thoracic and pelvic region. Plan/recommendations: There is a high possibility of cord compression based on recently worsening paraparesis and imaging findings. After whole spine MRI, we should contact with the patient's oncologist and radiation oncologist for further recommendations. Plan Thank you for the consultation. History of Present Illness Reason for Consultation: Paraparesis Requesting Physician: Phillip Almodovar Attending Physician: Phillip Almodovar MD History of Present Illness The patient is a 56-year-old gentleman, with metastatic prostate cancer, who presented emergency department yesterday, with worsening bilateral lower extremity weakness for last few days. Apparently, the patient was in the emergency department 2 days ago, with constipation, urinary retention, and was discharged home after Malin insertion. He reports that he was having some leg weakness then, but since yesterday, his leg weakness has been worsening significantly, now he cannot walk. He does not describe typical sensory leveling but he has bandlike sensory symptoms at midthoracic range, and he describes patchy sensory impairment in lower extremities.CT of spine showed extensive multifocal osteoblastic metastatic disease throughout the thoracic spine with abnormal paravertebral and epidural soft tissue from the T1-T8 levels, consistent with metastatic disease. There was also epidural component which is most pronounced at the T5-T6 level which results in moderate central canal narrowing. Numerous sclerotic foci within the skeleton are stable in lumbar spine CT, and cervical spine CT showed multifocal osteoblastic skeletal metastases which has been unchanged at lower cervical spine. The patient was seen in another hospital in October 2021, because of thoracic spine worsening pain. They performed thoracic and lumbar spine MRIs, which showed severe narrowing of the thecal sac with effacement of the CSF from T4-T8, also a thin epidural enhancement from T2-T9. The case was discussed with the patient's primary physicians, and the patient was referred to palliative care. At that time, the patient was not having lower extremity weakness. The patient was diagnosed with prostate cancer in August 2020. He has received chemotherapy, and after diagnosis of spinal metastases, he received a lumbar spine radiation therapy in July, and thoracic with pelvic radiation therapy in September 2021. I have reviewed the patient's chart including imaging studies and visualized them personally. I have discussed the case with the patient and family and I have answered their questions in detail. Allergies Allergy/AdvReac Type Severity Reaction Status Date / Time No Known Allergies Allergy Unknown Verified 10/23/21 10:33 Home Medications Medication Instructions Recorded Confirmed Type coenzyme Q10 100 mg capsule 200 mg PO DAILY 07/20/21 12/04/21 History famotidine 40 mg tablet (Pepcid) 40 mg PO DAILY 07/20/21 12/04/21 History loratadine 10 mg tablet 10 mg PO DAILY 07/20/21 12/04/21 History rosuvastatin 20 mg tablet 20 mg PO DAILY 07/20/21 12/04/21 History aspirin 81 mg tablet,delayed 81 mg PO DAILY 09/29/21 12/04/21 History release oxycodone-acetaminophen 10 mg-325 1 tab PO Q4H PRN Pain 10/03/21 12/04/21 History mg tablet (Percocet) dexamethasone 4 mg tablet 4 mg PO Q6H PRN Nausea 10/23/21 12/04/21 History ondansetron HCl 8 mg tablet 8 mg PO Q8H PRN Nausea 10/23/21 12/04/21 History prednisone 5 mg tablet 10 mg PO QAM 10/23/21 12/04/21 History prochlorperazine maleate 10 mg 10 mg PO Q6H PRN Nausea 10/23/21 12/04/21 History tablet gabapentin 300 mg capsule 300 mg PO BID 12/03/21 12/04/21 History morphine 30 mg tablet,extended 30 mg PO BID 12/03/21 12/04/21 History release naloxegol 25 mg tablet (Movantik) 25 mg PO QAM 12/03/21 12/04/21 History Patient History Medical History Diabetes Diverticulosis GERD (gastroesophageal reflux disease) Hyperlipidemia Hypertension Prostate cancer Biopsy on 08/30/20 Prostate cancer metastatic to bone Surgical History H/O shoulder surgery Left History of appendectomy History of surgery 4 iliac stents Family History Mother , 83yo Myocardial infarction Pacemaker CHF (congestive heart failure) Father , 62yo Lymphoma Brother Myocardial infarction Cardiac stents Dialysis patient Smoker Alcohol abuse Sister Cancer 6 sisters - none with cancer Son Urinary reflux Son Urinary reflux Social History Smoking Status: Current every day smoker Tobacco Type: Cigarettes Cigarettes Per Day: 1-2 PPD x 43 yrs; Tobacco Cessation Education Requested by Patient: Yes Hx Alcohol Use: No Hx Substance Use: No Preferred Language: [place] Communication Ability: Effective Visual Impairment: No Limitations Household Coordinator Required: No Beliefs That Will Affect Care: None marital status: Current Living Situation: Spouse current occupational status: employed 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 [employer] How many Children do You have: 2 Other Information That Helps Us Care for You: No Feels Safe at Home: No Is there a partner from a previous relationship who is making you feel unsafe now?: No Any Concerns about Your Family Situation: No Would You Like to Speak to Someone About Your Situation: No Safety Concerns: Feels Safe At This Time caffeine: Yes (2-3 cups/day) during the past year weight has: remained stable Assistive Devices: None Review of Systems Review of Systems: All systems reviewed & are unremarkable except as noted in HPI & below Physical Exam Physical Exam: General Examination: Constitutional: Well developed person in no acute distress. HEENT: Normal exam with inspection. CV: Hearth rhythm is regular. Neck: Supple, no carotid bruits. Lungs: Non-labored and comfortable breathing. Abdomen: Soft, non-tender, non-distended. Skin: No rash or ecchymosis. Extremities: No edema or cyanosis NEUROLOGICAL EXAMINATION: Mental Status: Alert and oriented to place, person and time. Cranial Nerves: II-XII are intact. No nystagmus. Funduscopy: Normal looking optic discs. Motor: 5/5 in upper extremities and 3+/5 in hip flexors and 4-/5 in other m uscles of lower extremities without asymmetry. Tone: Normal without spasticity or rigidity. Sensory: There is no clear or sensory leveling during physical examination. However, the patient describes bandlike altered feeling between T5-T8 levels. He also has decreased sensation on left lower extremity below knee, decreased sensation of right proximal thigh. He also describes decreased sensation in genitalia and groin region. DTRs: 2+ in upper extremities, 3 - and knees, and 1+ in ankles symmetrically. There is no Babinski. Coordination: No dysmetria with FTN testing. Speech: Fluent. Comprehension is intact. Gait: The patient cannot walk. With help, he can stand up with walker. Musculoskeletal: Normal muscle bulk, no atrophy. Results & Data ([facility]) Vital Signs (Past 12 Hours) Vital Signs Temp Pulse Pulse Resp BP Pulse Ox O2 Del Method 12/05/21 15:15 99 H 12/05/21 16:00 Nasal Cannula 12/05/21 15:48 36.4 C L 99 H 19 155/88 H 97 Nasal Cannula 12/05/21 12:33 114 H 12/05/21 11:35 36.6 C 105 H 20 148/82 H 98 Nasal Cannula 12/05/21 11:36 Nasal Cannula 12/05/21 07:31 36.8 C 103 H 19 164/93 H 96 Nasal Cannula O2 Flow Rate 12/05/21 15:15 12/05/21 16:00 2 12/05/21 15:48 2 12/05/21 12:33 12/05/21 11:35 2 12/05/21 11:36 2 12/05/21 07:31 2 Laboratory Results Laboratory Results - last 24 hr 12/04/21 12/05/21 12/05/21 22:08 07:23 07:23 WBC 5.90 RBC 3.10 L Hgb 8.9 L 8.6 L Hct 27.5 L 26.8 L MCV 86.5 MCH 27.7 MCHC 32.1 RDW Std Deviation 53.8 H RDW Coeff of Jasmyn 17.4 H Plt Count 147 MPV 9.4 Absolute Nucleated RBC 0.05 H Nucleated RBC % (auto) 0.8 Sodium 134 L Potassium 4.3 D Chloride 102 Carbon Dioxide 25 Anion Gap 7 BUN 9 Creatinine 0.53 L Est Cr Clr Drug Dosing 138.8 Est GFR ( Amer) 136.1 Est GFR (Non-Af Amer) 117.5 BUN/Creatinine Ratio 17.0 Glucose 107 H Calcium 8.0 L Phosphorus 2.4 L Magnesium 2.2 Stool Occult Bld Scrn 12/05/21 12:35 WBC RBC Hgb Hct MCV MCH MCHC RDW Std Deviation RDW Coeff of Jasmyn Plt Count MPV Absolute Nucleated RBC Nucleated RBC % (auto) Sodium Potassium Chloride Carbon Dioxide Anion Gap BUN Creatinine Est Cr Clr Drug Dosing Est GFR ( Amer) Est GFR (Non-Af Amer) BUN/Creatinine Ratio Glucose Calcium Phosphorus Magnesium Stool Occult Bld Scrn Negative Diagnostic Findings Abdomen/Pelvis CT 12/04/21 08:[address] WITH IV CONTRAST CT DOSE: HISTORY: Metastatic disease bilateral lower extremity weakness, back pain, retenti TECHNIQUE: Multiaxial CT images of the abdomen and pelvis were performed following the use of intravenous contrast. A dose lowering technique was utilized adhering to the principles of ALARA. COMPARISON STUDY: Abdomen and pelvis CT 12/02/2021. FINDINGS: There are trace bilateral pleural effusions which are new from the prior study. Patchy bilateral lower lobe densities have also slightly progressed. There is emphysema again noted at the lung bases. Small nodular densities along the right minor fissure remain stable. No pneumoperitoneum. No pneumatosis. Multifocal osteoblastic metastatic disease is similar to the prior CT examination. No acute fractures identified. There again noted a few scattered hypodense lesions within the liver. These are better appreciated on this examination likely due to the time of contrast. There are 2 tandem lesions identified. These likely represent metastatic disease. There are few punctate gallstones. No gallbladder wall thickening. The spleen and right adrenal gland are unremarkable. A 2.1 cm left adrenal gland nodules again noted. There are few prominent left para-aortic lymph nodes, unchanged. These are concerning for metastatic disease. The kidneys enhance normally. No hydronephrosis. Bilateral common iliac artery stents are patent. No pelvic lymphadenopathy. There is a Malin catheter within the bladder. There is mild bladder wall thickening. Fluid- filled nondilated loops of large and small bowel seen throughout the abdomen. No evidence for a bowel obstruction. IMPRESSION: 1. Redemonstration of the metastatic disease within the abdomen and pelvis as described above. This is similar to the prior study. 2. Fluid-filled nondilated loops of large and small bowel. This can be seen in the setting of a gastroenteritis/diarrheal illness. No evidence for bowel obstruction. 3. Cholelithiasis. 4. Patchy bibasilar densities and trace bilateral pleural effusions have progressed. This could represent atelectasis or a pneumonia. 5. Bladder wall thickening. This may represent a cystitis. Recommend correlation with urinalysis. ACT 112: Negative or not required by law. Electronically signed by: Francisco Javier Navarrete M.D. 12/04/2021 12:[address] 12/04/21 08:58 CT cervical spine wo con CLINICAL HISTORY: 56 years-old Male with metstatic disease BLE weakness, back pain, retenti. Acute neck pain with upper extremity weakness in a patient with skeletal metastasis COMPARISON: CT thoracic spine of same day, MRI thoracic spine 11/14/2021 TECHNIQUE: Multiple axial CT images of the cervical spine were obtained without contrast. A dose lowering technique was utilized adhering to the principles of ALARA. FINDINGS: Multifocal osteoblastic skeletal metastasis redemonstrated. Mild superior endplate compression again noted at C7, T1 and T2 which is similar to the prior study. There is mild multilevel intervertebral disc space narrowing and spondylitic spurring with [id number] facet arthrosis. No acute fracture, subluxation or endplate erosion identified. No pneumothorax. Emphysematous changes of the lung apices without pneumothorax. There is no prevertebral edema of the cervical spine. There is however mild paravertebral edema of the upper thoracic spine which was also present on the comparison MRI. No high-grade central canal or neural foraminal narrowing of the cervical spine identified. IMPRESSION: 1. Multifocal osteoblastic skeletal metastasis redemonstrated. No acute pathologic fracture identified. 2. Unchanged appearance of the mild C7, T1 and T2 compression deformities. 3. Upper thoracic paravertebral edema is similar to the 11/14/2021 MRI exam. 4. Pulmonary emphysema. ACT 112: Negative or not required by law. The above report was generated using voice recognition software. It may contain grammatical, syntax or spelling errors. Electronically signed by: Rick Moreno M.D. 12/04/2021 11:[address] 12/04/21 08:58 CT lumbar spine wo con CLINICAL HISTORY: metstatic disease BLE weakness, back pain, retenti TECHNIQUE: Multidetector row helical CT of the lumbar spine was performed without administration of intravenous contrast. Coronal and sagittal reformations were obtained. Automated dose lowering techniques and/or adjustment according to patient size were utilized for this exam. Comparison: Comparison is made to CT abdomen pelvis 07/07/2021 FINDINGS: For counting purposes, the last complete intervertebral disc space is considered L5-S1.Numerous sclerotic foci are seen throughout the skeleton. These are stable to minimally enlarged from prior CT. For example, a 19 mm focus of the superior aspect of the L1 vertebral body previously measured 18 mm. Mild degenerative changes are seen most prominent at L3-L4. Please see CT abdomen pelvis for detailed findings of the soft tissues. IMPRESSION: Numerous sclerotic foci within the skeleton are stable to minimally enlarged from prior exam compatible with metastatic disease. No evidence of acute fracture. ACT 112: Negative or not required by law. Electronically signed by: Gonzalez Vallejo M.D. 12/04/2021 11:[address] 12/04/21 08:[address] DOSE: 2333.11 mGy.cm HISTORY: metastatic disease with bilateral lower extremity weakness, back pain, retention TECHNIQUE: Multiaxial CT images of the thoracic spine were performed and reformatted in the sagittal and coronal plane without the use of contrast. A dose lowering technique was utilized adhering to the principles of ALARA. COMPARISON: Outside hospital thoracic spine MRI 11/14/2021. FINDINGS: Redemonstration of the extensive multifocal osteoblastic metastatic disease seen throughout the thoracic spine. This is similar to the prior outside hospital thoracic spine MRI. Mild super endplate compression at C7, T1, T2, and T3 is similar to the prior study. This is likely chronic. No acute fractures identified within the thoracic spine. Paravertebral edema and soft tissue thickening from the T1-T8 level is again noted and is consistent with metastatic disease. This is best seen at the T5-T6 levels which demonstrates up to 8 mm of prevertebral soft tissue thickening. There is associated epidural soft tissue from the T3-T8 levels also consistent with metastatic disease. This epidural soft tissue results in [id number] central canal narrowing within the upper to mid thoracic spine most pronounced at the T5-T6 level. The transverse di ameter of the thecal sac at this level is approximately 7 mm this is also similar to the prior study. There are trace bilateral pleural effusions. Emphysema. Patchy densities within the lung bases posteriorly may represent atelectasis. A pneumonia could also have a similar appearance. IMPRESSION: 1. Redemonstration of extensive multifocal osteoblastic metastatic disease seen throughout the thoracic spine and visualized ribs. This is similar to the prior outside hospital MRI. 2. There is also abnormal paravertebral and epidural soft tissue from the T1-T8 levels consistent with metastatic disease. The epidural component is most pronounced at the T5-T6 level which results in moderate central canal narrowing. This is also similar to the prior outside hospital MRI. 3. Trace bilateral pleural effusions. 4. Mild superior endplate compression deformities at C7, T1, T2, T3 are also similar to the prior study. No acute fractures identified. 5. Additional findings as described above. ACT 112: Negative or not required by law. Electronically signed by: Francisco Javier Navarrete M.D. 12/04/2021 12:15 PM
--- NOTE | 2021-12-05 17:08 | Hospitalist Progress Note ---
Date of Service December 05, 2021 Assessment & Plan (1) Lower extremity weakness: Plan BLE Weakness Urinary retention status post Malin placement Patient presented with progressive BLE weakness since 2-3 days [employer], can't stand now, no sensory loss, no loss of bowel or bladder control, denies trauma to lower extremities. 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 Admitting vitals are stable, admitting imagings [CTAP/cervical CT/lumbar CT/thoracic CT] reviewed with multiple metastasis noted. Plan: Patient has urinary retention as well as bilateral leg weakness with history of metastatic prostate cancer. Neurology on board; MRI cervical thoracic and lumbar spine will be obtained. Follow-up on the results and decide on further intervention. Dr. Johnson ( oncologist) is informed regarding the plan. Ac on chr anemia: Baseline hemoglobin appears around 10-11, admitting hemoglobin of 8.2. Serum iron within normal limits. FOBT negative. Started on DVT prophylaxis. 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 He says his next chemotherapy is on ; Dr. Nolasco informed regarding the hospitalization. We will provide him updates. He is on morphine extended release 30 mg twice daily as per palliative care and Percocet every 4 hours as needed. Tobacco use disorder: Current tobaco use, since age 13, 1 ppd, declined nicotine patch, counselled. DVT px; Heparin Full code. Admission and Anticipated Discharge Date Admission Date: December 04, 2021 Subjective Patient seen and examined at bedside. He reports that his weakness has continued to persist. Review of Systems Review of Systems: All systems reviewed & are unremarkable except as noted in Subjective Physical Exam Physical Exam: GENERAL: Alert and oriented x3. NAD, on 2L NC O2. HEENT: No pallor, no icterus. Pupils equal, round and reactive to light. Oral mucosa moist. NECK: No JVD, no neck masses. HEART: S1 and S2 heard. Regular rate and rhythm. No murmur, no gallop. RESPIRATORY SYSTEM: Normal AP diameter. No accessory muscle use. No wheezing, no crackles. ABDOMEN: Soft, bowel sounds present, nontender, no distention. CENTRAL NERVOUS SYSTEM: No facial droop. Speech is clear. Obeys simple commands. Moves extremities. EXTREMITIES: Trace/1+ edema, no erythema seen. Power: 2/5 BLE w/ 1-2/5 dorsiflexion of foot and 4/5 plantar flexion Results & Data Results & Data ([facility]) Vital Signs (Past 12 Hours) Vital Signs Temp Pulse Pulse Resp BP Pulse Ox O2 Del Method 12/05/21 15:15 99 H 12/05/21 16:00 Nasal Cannula 12/05/21 15:48 36.4 C L 99 H 19 155/88 H 97 Nasal Cannula 12/05/21 12:33 114 H 12/05/21 11:35 36.6 C 105 H 20 148/82 H 98 Nasal Cannula 12/05/21 11:36 Nasal Cannula 12/05/21 07:31 36.8 C 103 H 19 164/93 H 96 Nasal Cannula O2 Flow Rate 12/05/21 15:15 12/05/21 16:00 2 12/05/21 15:48 2 12/05/21 12:33 12/05/21 11:35 2 12/05/21 11:36 2 12/05/21 07:31 2 Laboratory Results Laboratory Results WBC 5.90 K/ul (4.8-10.8) 12/05/21 07:23 RBC 3.10 M/uL (4.63-6.08) L 12/05/21 07:23 Hgb 8.6 g/dl (14.0-18.0) L 12/05/21 07:23 Hct 26.8 % (40.1-51.0) L 12/05/21 07:23 MCV 86.5 fL (80.0-100.0) 12/05/21 07:23 MCH 27.7 pg (25.0-34.0) 12/05/21 07:23 MCHC 32.1 g/dL (32.0-36.0) 12/05/21 07:23 RDW Std Deviation 53.8 fL (36.4-46.3) H 12/05/21 07:23 RDW Coeff of Jasmyn 17.4 % (11.5-14.5) H 12/05/21 07:23 Plt Count 147 K/uL (130-400) 12/05/21 07:23 MPV 9.4 fL (9.4-12.4) 12/05/21 07:23 Immature Gran % (Auto) 4.4 % 12/04/21 09:15 Neut % (Auto) 78.8 % 12/04/21 09:15 Lymph % (Auto) 6.7 % 12/04/21 09:15 Cross % (Auto) 9.3 % 12/04/21 09:15 Eos % (Auto) 0.4 % 12/04/21 09:15 Baso % (Auto) 0.4 % 12/04/21 09:15 Neut # (Auto) 4.49 K/uL (1.4-6.5) 12/04/21 09:15 Lymph # (Auto) 0.38 K/uL (1.2-3.4) L 12/04/21 09:15 Cross # (Auto) 0.53 K/uL (0.24-0.82) 12/04/21 09:15 Eos # (Auto) 0.02 K/uL (0-0.50) 12/04/21 09:15 Baso # (Auto) 0.02 K/uL (0-0.2) 12/04/21 09:15 Immature Gran # (Auto) 0.25 K/uL (0.00-0.02) H 12/04/21 09:15 Absolute Nucleated RBC 0.05 K/uL (0-0) H 12/05/21 07:23 Nucleated RBC % (auto) 0.8 % 12/05/21 07:23 Sodium 134 mmol/L (136-145) L 12/05/21 07:23 Potassium 4.3 mmol/L (3.5-5.1) D 12/05/21 07:23 Chloride 102 mmol/L (98-107) 12/05/21 07:23 Carbon Dioxide 25 mmol/L (21-32) 12/05/21 07:23 Anion Gap 7 (3-11) 12/05/21 07:23 BUN 9 mg/dl (6-23) 12/05/21 07:23 Creatinine 0.53 mg/dl (0.6-1.4) L 12/05/21 07:23 Est Cr Clr Drug Dosing 138.8 ml/min 12/05/21 07:23 Est GFR ( Amer) 136.1 ml/min 12/05/21 07:23 Est GFR (Non-Af Amer) 117.5 ml/min 12/05/21 07:23 BUN/Creatinine Ratio 17.0 (10-20) 12/05/21 07:23 Glucose 107 mg/dl (70-99(Fasting)) H 12/05/21 07:23 Calcium 8.0 mg/dl (8.5-10.1) L 12/05/21 07:23 Phosphorus 2.4 mg/dl (2.5-4.9) L 12/05/21 07:23 Magnesium 2.2 mg/dl (1.7-2.4) 12/05/21 07:23 Iron 53 mcg/dl (35-175) 12/04/21 09:15 TIBC 218 mcg/dl (250-450) L 12/04/21 09:15 Unsaturated IBC 165 mcg/dl (155-355) 12/04/21 09:15 Transferrin % Sat 24 % (20-50) 12/04/21 09:15 Total Bilirubin 0.4 mg/dl (0.2-1.0) 12/04/21 09:15 AST 26 U/L (13-39) 12/04/21 09:15 ALT 21 U/L (7-52) 12/04/21 09:15 Alkaline Phosphatase 139 U/L (34-104) H 12/04/21 09:15 Total Creatine Kinase 152 U/L (30-223) 12/04/21 09:15 Total Protein 5.7 gm/dl (6.0-8.3) L D 12/04/21 09:15 Albumin 3.1 gm/dl (3.4-5.0) L 12/04/21 09:15 Globulin 2.6 gm/dl (2.5-4.0) 12/04/21 09:15 Albumin/Globulin Ratio 1.2 (0.9-2) 12/04/21 09:15 Lipase < 3 U/L (11-82) L 12/04/21 09:15 Vitamin B12 250 pg/ml (180-914) 12/04/21 09:15 Folate 6.04 ng/ml (>5.38) 12/04/21 09:15 Urine Color Yellow 12/04/21 10:06 Urine Appearance Clear (Clear) 12/04/21 10:06 Urine pH 7.0 (4.5-7.5) 12/04/21 10:06 Ur Specific [place] 1.004 (1.000-1.030) 12/04/21 10:06 Urine Protein Negative (Negative) 12/04/21 10:06 Urine Glucose (UA) Negative (Negative) 12/04/21 10:06 Urine Ketones Negative (Negative) 12/04/21 10:06 Urine Blood Negative (Negative) 12/04/21 10:06 Urine Nitrite Negative (Negative) 12/04/21 10:06 Urine Bilirubin Negative (Negative) 12/04/21 10:06 Urine Urobilinogen Negative (Negative) 12/04/21 10:06 Ur Leukocyte Esterase Negative (Negative) 12/04/21 10:06 Stool Occult Bld Scrn Negative (Negative) 12/05/21 12:35 SARS-CoV-2, RNA, NAAT NEGATIVE (NEGATIVE) 12/04/21 09:20 Impressions Abdomen/Pelvis CT 12/04/21 08:[address] WITH IV CONTRAST CT DOSE: HISTORY: Metastatic disease bilateral lower extremity weakness, back pain, retenti TECHNIQUE: Multiaxial CT images of the abdomen and pelvis were performed following the use of intravenous contrast. A dose lowering technique was utilized adhering to the principles of ALARA. COMPARISON STUDY: Abdomen and pelvis CT 12/02/2021. FINDINGS: There are trace bilateral pleural effusions which are new from the prior study. Patchy bilateral lower lobe densities have also slightly progressed. There is emphysema again noted at the lung bases. Small nodular densities along the right minor fissure remain stable. No pneumoperitoneum. No pneumatosis. Multifocal osteoblastic metastatic disease is similar to the prior CT examination. No acute fractures identified. There again noted a few scattered hypodense lesions within the liver. These are better appreciated on this examination likely due to the time of contrast. There are 2 tandem lesions identified. These likely represent metastatic disease. There are few punctate gallstones. No gallbladder wall thickening. The spleen and right adrenal gland are unremarkable. A 2.1 cm left adrenal gland nodules again noted. There are few prominent left para-aortic lymph nodes, unchanged. These are concerning for metastatic disease. The kidneys enhance normally. No hydronephrosis. Bilateral common iliac artery stents are patent. No pelvic lymphadenopathy. There is a Malin catheter within the bladder. There is mild bladder wall thickening. Fluid- filled nondilated loops of large and small bowel seen throughout the abdomen. No evidence for a bowel obstruction. IMPRESSION: 1. Redemonstration of the metastatic disease within the abdomen and pelvis as described above. This is similar to the prior study. 2. Fluid-filled nondilated loops of large and small bowel. This can be seen in the setting of a gastroenteritis/diarrheal illness. No evidence for bowel obstruction. 3. Cholelithiasis. 4. Patchy bibasilar densities and trace bilateral pleural effusions have progressed. This could represent atelectasis or a pneumonia. 5. Bladder wall thickening. This may represent a cystitis. Recommend correlation with urinalysis. ACT 112: Negative or not required by law. Electronically signed by: Francisco Javier Navarrete M.D. 12/04/2021 12:[address] 12/04/21 08:58 CT cervical spine wo con CLINICAL HISTORY: 56 years-old Male with metstatic disease BLE weakness, back pain, retenti. Acute neck pain with upper extremity weakness in a patient with skeletal metastasis COMPARISON: CT thoracic spine of same day, MRI thoracic spine 11/14/2021 TECHNIQUE: Multiple axial CT images of the cervical spine were obtained without contrast. A dose lowering technique was utilized adhering to the principles of ALARA. FINDINGS: Multifocal osteoblastic skeletal metastasis redemonstrated. Mild superior endplate compression again noted at C7, T1 and T2 which is similar to the prior study. There is mild multilevel intervertebral disc space narrowing and spondylitic spurring with [id number] facet arthrosis. No acute fracture, subluxation or endplate erosion identified. No pneumothorax. Emphysematous changes of the lung apices without pneumothorax. There is no prevertebral edema of the cervical spine. There is however mild paravertebral edema of the upper thoracic spine which was also present on the comparison MRI. No high-grade central canal or neural foraminal narrowing of the cervical spine identified. IMPRESSION: 1. Multifocal osteoblastic skeletal metastasis redemonstrated. No acute pathologic fracture identified. 2. Unchanged appearance of the mild C7, T1 and T2 compression deformities. 3. Upper thoracic paravertebral edema is similar to the 11/14/2021 MRI exam. 4. Pulmonary emphysema. ACT 112: Negative or not required by law. The above report was generated using voice recognition software. It may contain grammatical, syntax or spelling errors. Electronically signed by: Rick Moreno M.D. 12/04/2021 11:[address] 12/04/21 08:58 CT lumbar spine wo con CLINICAL HISTORY: metstatic disease BLE weakness, back pain, retenti TECHNIQUE: Multidetector row helical CT of the lumbar spine was performed without administration of intravenous contrast. Coronal and sagittal reformations were obtained. Automated dose lowering techniques and/or adjustment according to patient size were utilized for this exam. Comparison: Comparison is made to CT abdomen pelvis 07/07/2021 FINDINGS: For counting purposes, the last complete intervertebral disc space is considered L5-S1.Numerous sclerotic foci are seen throughout the skeleton. These are stable to minimally enlarged from prior CT. For example, a 19 mm focus of the superior aspect of the L1 vertebral body previously measured 18 mm. Mild degenerative changes are seen most prominent at L3-L4. Please see CT abdomen pelvis for detailed findings of the soft tissues. IMPRESSION: Numerous sclerotic foci within the skeleton are stable to minimally enlarged from prior exam compatible with metastatic disease. No evidence of acute fracture. ACT 112: Negative or not required by law. Electronically signed by: Gonzalez Vallejo M.D. 12/04/2021 11:[address] 12/04/21 08:[address] DOSE: 2333.11 mGy.cm HISTORY: metastatic disease with bilateral lower extremity weakness, back pain, retention TECHNIQUE: Multiaxial CT images of the thoracic spine were performed and reformatted in the sagittal and coronal plane without the use of contrast. A dose lowering technique was utilized adhering to the principles of ALARA. COMPARISON: Outside hospital thoracic spine MRI 11/14/2021. FINDINGS: Redemonstration of the extensive multifocal osteoblastic metastatic disease seen throughout the thoracic spine. This is similar to the prior outside hospital thoracic spine MRI. Mild super endplate compression at C7, T1, T2, and T3 is similar to the prior study. This is likely chronic. No acute fractures identified within the thoracic spine. Paravertebral edema and soft tissue thickening from the T1-T8 level is again noted and is consistent with metastatic disease. This is best seen at the T5-T6 levels which demonstrates up to 8 mm of prevertebral soft tissue thickening. There is associated epidural soft tissue from the T3-T8 levels also consistent with metastatic disease. This epidural soft tissue results in [id number] central canal narrowing within the upper to mid thoracic spine most pronounced at the T5-T6 level. The transverse di ameter of the thecal sac at this level is approximately 7 mm this is also similar to the prior study. There are trace bilateral pleural effusions. Emphysema. Patchy densities within the lung bases posteriorly may represent atelectasis. A pneumonia could also have a similar appearance. IMPRESSION: 1. Redemonstration of extensive multifocal osteoblastic metastatic disease seen throughout the thoracic spine and visualized ribs. This is similar to the prior outside hospital MRI. 2. There is also abnormal paravertebral and epidural soft tissue from the T1-T8 levels consistent with metastatic disease. The epidural component is most pronounced at the T5-T6 level which results in moderate central canal narrowing. This is also similar to the prior outside hospital MRI. 3. Trace bilateral pleural effusions. 4. Mild superior endplate compression deformities at C7, T1, T2, T3 are also similar to the prior study. No acute fractures identified. 5. Additional findings as described above. ACT 112: Negative or not required by law. Electronically signed by: Francisco Javier Navarrete M.D. 12/04/2021 12:15 PM
[2021-12-05] MEDS: HEPARIN SOD 5,000 UNIT/0.5 ML VIAL SQ SCH (20:55)
[2021-12-06] MEDS: oxyCODONE/ACETAMINOPHEN 10-325 TAB PO PRN ×5 (01:24→23:09)
[2021-12-06] MEDS ORDERED: dexAMETHasone 4 MG in SYRINGE 0 ML IV SCH (05:00)
[2021-12-06] MEDS ORDERED: GADOBUTROL 65ML VIAL IV ONE (06:43)
[2021-12-06 07:35] LABS: Hematocrit (blood only) 28.2 % (40.1-51.0); Hemoglobin 9.1 g/dl (14.0-18.0); Mean Corpuscular Hemoglobin 27.5 pg (25.0-34.0); Mean Corpuscular Hgb Conc 32.3 g/dL (32.0-36.0); Mean Corpuscular Volume 85.2 fL (80.0-100.0); Mean Platelet Volume 9.5 fL (9.4-12.4); Nucleated RBC # (auto) 0.04 K/uL (0-0); Nucleated RBC % (auto) 0.6 %; Platelet Count 149 K/uL (130-400); RDW Coefficient of Variation 17.4 % (11.5-14.5); RDW Standard Deviation 53.5 fL (36.4-46.3); Red Blood Count 3.31 M/uL (4.63-6.08)
[2021-12-06 08:05] LABS: BUN Creatinine Ratio 15.7 (10-20); Calcium 8.1 mg/dl (8.5-10.1); Creatinine Clr Calc Pharmacy 144.2 ml/min; Est GFR (African American) 138.3 ml/min; Est GFR (Non-African American) 119.3 ml/min; Potassium 3.9 mmol/L (3.5-5.1)
[2021-12-06 08:06] LABS: Basophils # (auto) 0.02 K/uL (0-0.2); Basophils % (auto) 0.3 %; Eosinophils # (auto) 0.01 K/uL (0-0.50); Eosinophils % (auto) 0.2 %; Immature Granulocytes # (auto) 0.45 K/uL (0.00-0.02); Immature Granulocytes % (auto) 7.1 %; Lymphocytes # (auto) 0.25 K/uL (1.2-3.4); Monocytes # (auto) 0.37 K/uL (0.24-0.82); Monocytes % (auto) 5.9 %; Neutrophils % (auto) 82.5 %
[2021-12-06] MEDS: MOVANTIK PO SCH (08:06)
[2021-12-06] MEDS: predniSONE 10 MG TABLET PO SCH (08:06)
[2021-12-06] MEDS: ROSUVASTATIN CALCIUM 20 MG TAB PO SCH (08:06)
[2021-12-06] MEDS: NICOTINE 21 MG/24 HR TDSY TD SCH (08:07)
[2021-12-06] MEDS: ASPIRIN 81 MG ECTAB PO SCH (08:07)
[2021-12-06] MEDS: GABAPENTIN 300 MG CAP PO SCH ×2 (08:07→20:32)
[2021-12-06] MEDS: FAMOTIDINE 40 MG TABLET PO SCH (08:08)
[2021-12-06] MEDS: LORATADINE 10 MG TAB PO SCH (08:08)
[2021-12-06] MEDS: MoRPHine SULFATE CR 15 MG TABCR PO SCH ×2 (08:13→20:32)
--- NOTE | 2021-12-06 08:25 | Radiation OncologyConsultation ---
Date of Consultation December 06, 2021 Assessment & Plan (1) Prostate cancer metastatic to multiple sites: Plan Assessment: Mr. Mcclain is a 56 year old gentleman with castrate resistant metastatic prostate cancer. The patient has recently started day Firmagon with docetaxel underneath supervision of Dr. Howe. The patient previously received palliative radiation therapy to lumbar spine (3000 cGy, 10 fractions, 08/09/2021), lumbar spine/SI/thoracic spine (3000 cGy, 10 fractions, 10/18/2021). The patient did presents to the hospital with bilateral progressive lower extremity weakness and paresthesias involving his mid thoracic chest. The patient did have complete CT imaging of the spine which again confirmed osseous metastatic disease involving the cervical spine however did also show paravertebral and epidural soft tissue from T1-T8 consistent with metastatic disease. The patient did also have MRI imaging of the entire spine which does confirm these results. We have been asked to evaluate the patient to discuss potential further palliative radiation therapy. Recommendation: After reviewing previous dosimetry and radiation therapy records and reviewing the paravertebral and epidural soft tissue involvement from T1-T8, I have recommended palliative external beam radiation therapy to the upper thoracic spine not previously treated. I will confirm the final reports of MRI of Thoracic spine to confirm diagnosis and also review neurology input as well. Plan: 1. Review final reports of MRI C/TL spine when available to confirm diagnosis of metastatic disease involving thoracic spinal canal. Appreciate neurology input. 2. CT simulation for treatment planning for radiation therapy with anticipation to start treatment tomorrow. Plan for 10 fractions. 3. Keep patient on IV dexamethasone 4 mg twice a day. Dose may need to be increased if patient symptoms are not improving. 4. Patient should follow-up with medical oncology outpatient setting. 5. Patient and family encouraged to call us with any further questions or concerns. Rationale/Explanation of Treatment: I have explained the indications, alternatives, benefits, risks and side effects of radiation therapy. I have explained the most common side effects which include but are not limited to skin erythema, skin break down, pulmonary fibrosis, adhesion development, radiation pneumonitis, spinal cord damage, brachial plexus damage, rib fracture, heart failure and heart disease, esophagitis, development of fistula, fatigue and development of secondary malignancy. I have explained the CT simulation process and treatment planning. I explained what to expect before, during and after treatment on a regular basis. I have explained to the patient that there is an increased risk of overlap from the previous course of radiation therapy and the current course of radiation therapy which can increase the risk of all acute and late side effects of radiation therapy. The patient had multiple questions which were answered to his full satisfaction. Thank you for allowing us to participate in the care of this patient. This chart was completed in part utilizing [employer] Speech Voice Recognition softw are. Attempts were made to minimize the grammatical errors, random word insertions, pronoun errors and incomplete sentences. Any formal questions or concerns about the content, text or information contained within the body of this dictation should be directly addressed to the provider for clarification. Storm Muse MD Department of Radiation Oncology [facility] History of Present Illness Attending Physician: Kushal Law MD History of Present Illness Mr. Mcclain presented with a high risk metastatic prostate cancer. He is being treated with Firmagon and Xgeva plus apalutamide and has had a good PSA response. Recent scans have shown progression of bony disease at L2 and T9 and pain at L2. We are seeing the patient for palliative treatment. 08/10/2020. PSA 40.12. 08/19/2020. PSA 53.60. 08/23/2020. Patient is seen by Dr. Pappas (urology) with a history of elevated PSA. His MAYRA showed normal seminal vesicles with no rectal masses. The prostate was firm with the right side more than the left highly suspicious for a locally advanced prostate cancer. Ultrasound-guided prostate biopsies were discussed with the patient who agreed. 08/30/2020. Dr. Pappas proceeded with prostate needle biopsy. 6 biopsies from left and right apex mid and base were taken all were positive for prostatic carcinoma Charleen grade 4+5 with evidence of perineural invasion. The percent of cancer was between 85 and 95%. There is evidence of extensive intraductal carcinoma and suspicion of extraprostatic extension. Accession #: [id number]. 09/07/2020. Patient undergoes staging CT of the abdomen and pelvis. This showed a new nodule in the left adrenal gland measuring 1.8 x 1.6 x 1.6 cm suspicious for metastasis. There were no abnormal lymphadenopathy. There were scattered metastatic lesions throughout the thoracic go lumbar spine and pelvic bones. 09/14/2020. PSA 77.45. 10/03/2020. Staging CT of the chest with contrast was performed. There was no pulmonary abnormalities or mediastinal, hilar or axillary lymphadenopathy. Sclerotic metastatic disease was noted within the spine most notably at T3 and T8 with additional foci noted within the ribs, right scapula, right clavicle and sternum. The left adrenal nodule was again noted. 10/10/2020. PSA 5.97. Patient was seen by Dr. Howe who started him on Firmagon and Xgeva. 12/09/2020. PSA 0.36. 01/06/2021. PSA 0.25. 02/03/2021. PSA 0.21. 03/03/2021. PSA 0.20. 04/28/2021. PSA 0.23. 05/26/2021. PSA 0.28. 06/23/2021. PSA 0.30. 07/03/2021. Whole-body bone scan performed. This showed relatively stable distribution of bony metastasis in comparison to a September 07 whole-body bone scan. The exception was increased intense activity at the L2 vertebral body. Extreme uptake is of concern for pathologic fractures after weightbearing. 07/07/2021. Restaging CT of the abdomen and pelvis. This again showed diffuse sclerotic bony metastatic static disease which has significantly increased in size and number compared to the prior exam. There is a stable 2 cm nonspecific left adrenal nodule again noted. There are no enlarged pelvic or abdominal lymph nodes appreciated. 07/12/2021. Patient return for follow-up to Dr. Howe (hematology/oncology). He noted the increased uptake at the L2 vertebral body and patient complains of pain. He was kind enough to schedule the patient for a radiation oncology referral. He will continue with treatment of Xgeva plus apalutamide and Firmagon and will repeat the PSA in 6 weeks. 07/20/2021. Patient seen in radiation oncology for evaluation and discussion of the role of palliative radiation as treatment for his new finding of painful met at the L2 vertebral body. 08/09/2021. Status post completion of palliative radiation therapy to the lumbar spine. He received 3000 cGy. [facility]. 09/21/2021. Bone scan. Increased intensity but similar distribution of multifocal osseous metastatic disease. 09/29/2021. Emergency room evaluation due to thoracic pain radiating to the chest. 10/02/2021. Palliative care evaluation. Adjustment of medication. Ongoing back pain. Thoracic and lumbar. 09/25/2021 - 10/18/2021. Palliative external beam radiation therapy to thoracic spine/lumbar spine/SI. 3000 cGy, 10 fractions. [facility]. 10/18/2021. Medical oncology consultation with Dr. Howe. Recommendation is for docetaxel and degarelix. 11/16/2021. Patient started on docetaxel chemotherapy. Cycle 1. Dr. Howe. 12/04/2021. Patient presented to emergency room due to bilateral lower extremity weakness. Patient admitted to hospital. 12/04/2021. CT of abdomen/pelvis. 1. Redemonstration of the metastatic disease within the abdomen and pelvis as described above. This is similar to the prior study. 2. Fluid-filled nondilated loops of large and small bowel. This can be seen in the setting of a gastroenteritis/diarrheal illness. No evidence for bowel obstruction. 3. Cholelithiasis. 4. Patchy bibasilar densities and trace bilateral pleural effusions have progressed. This could represent atelectasis or a pneumonia. 5. Bladder wall thickening. This may represent a cystitis. Recommend correlation with urinalysis. 12/04/2021. CT of cervical spine. 1. Multifocal osteoblastic skeletal metastasis redemonstrated. No acute pathologic fracture identified. 2. Unchanged appearance of the mild C7, T1 and T2 compression deformities. 3. Upper thoracic paravertebral edema is similar to the 11/14/2021 MRI exam. 4. Pulmonary emphysema. 12/04/2021. CT of thoracic spine. 1. Redemonstration of extensive multifocal osteoblastic metastatic disease seen throughout the thoracic spine and visualized ribs. This is similar to the prior outside hospital MRI. 2. There is also abnormal paravertebral and epidural soft tissue from the T1-T8 levels consistent with metastatic disease. The epidural component is most pronounced at the T5-T6 level which results in moderate central canal narrowing. This is also similar to the prior outside hospital MRI. 3. Trace bilateral pleural effusions. 4. Mild superior endplate compression deformities at C7, T1, T2, T3 are also similar to the prior study. No acute fractures identified. 5. Additional findings as described above. 12/04/2021. CT of lumbar spine. Numerous sclerotic foci within the skeleton are stable to minimally enlarged from prior exam compatible with metastatic disease. No evidence of acute fracture. 12/05/2021. Neurology consultation. Recommendation is for whole spine MRI and then discussed results with radiation oncology and medical oncology. 12/05/2021. MRI cervical spine. Final report unavailable. 12/05/2021. MRI of thoracic spine. Final report unavailable. 12/05/2021. MRI of lumbar spine. Final report unavailable. Allergies Allergy/AdvReac Type Severity Reaction Status Date / Time No Known Allergies Allergy Unknown Verified 10/23/21 10:33 Home Medications Medication Instructions Recorded Confirmed Type coenzyme Q10 100 mg capsule 200 mg PO DAILY 07/20/21 12/04/21 History famotidine 40 mg tablet (Pepcid) 40 mg PO DAILY 07/20/21 12/04/21 History loratadine 10 mg tablet 10 mg PO DAILY 07/20/21 12/04/21 History rosuvastatin 20 mg tablet 20 mg PO DAILY 07/20/21 12/04/21 History aspirin 81 mg tablet,delayed 81 mg PO DAILY 09/29/21 12/04/21 History release oxycodone-acetaminophen 10 mg-325 1 tab PO Q4H PRN Pain 10/03/21 12/04/21 History mg tablet (Percocet) dexamethasone 4 mg tablet 4 mg PO Q6H PRN Nausea 10/23/21 12/04/21 History ondansetron HCl 8 mg tablet 8 mg PO Q8H PRN Nausea 10/23/21 12/04/21 History prednisone 5 mg tablet 10 mg PO QAM 10/23/21 12/04/21 History prochlorperazine maleate 10 mg 10 mg PO Q6H PRN Nausea 10/23/21 12/04/21 History tablet gabapentin 300 mg capsule 300 mg PO BID 12/03/21 12/04/21 History morphine 30 mg tablet,extended 30 mg PO BID 12/03/21 12/04/21 History release naloxegol 25 mg tablet (Movantik) 25 mg PO QAM 12/03/21 12/04/21 History Patient History Medical History (Updated 12/06/21 @ 08:18 by Storm Muse MD) Diabetes Diverticulosis GERD (gastroesophageal reflux disease) Hyperlipidemia Hypertension Prostate cancer Biopsy on 08/30/20 Prostate cancer metastatic to bone Prostate cancer metastatic to multiple sites Surgical History H/O shoulder surgery Left History of appendectomy History of surgery 4 iliac stents Family History Mother , 83yo Myocardial infarction Pacemaker CHF (congestive heart failure) Father , 62yo Lymphoma Brother Myocardial infarction Cardiac stents Dialysis patient Smoker Alcohol abuse Sister Cancer 6 sisters - none with cancer Son Urinary reflux Son Urinary reflux Social History Smoking Status: Current every day smoker Tobacco Type: Cigarettes Cigarettes Per Day: 1-2 PPD x 43 yrs; Tobacco Cessation Education Requested by Patient: Yes Hx Alcohol Use: No Hx Substance Use: No Preferred Language: Kuwaiti Communication Ability: Effective Visual Impairment: No Limitations Waistband Setter Lockstitch Required: No Beliefs That Will Affect Care: None marital status: Current Living Situation: Spouse current occupational status: employed current occupation: [employer] for [employer] How many Children do You have: 2 Other Information That Helps Us Care for You: No Feels Safe at Home: No Is there a partner from a previous relationship who is making you feel unsafe now?: No Any Concerns about Your Family Situation: No Would You Like to Speak to Someone About Your Situation: No Safety Concerns: Feels Safe At This Time caffeine: Yes (2-3 cups/day) during the past year weight has: remained stable Assistive Devices: None Review of Systems Review of Systems: Bilateral lower extremity weakness. Bandlike numbness around middle chest. No significant pain. Physical Exam Constitutional: WD/WN, vitals as above Musculoskeletal: 5/5 in upper extremities, 3 to 4/5 in lower extremities Neurologic: patellar DTR's 2+ bilat, sensation intact and PERRL, EOMI, accommodation nl, no face palsy, no dysarthria Psychiatric: A+Ox3, euthymic affect
--- NOTE | 2021-12-06 09:15 | Magnetic Resonance Report ---
MRI OF THE LUMBAR SPINE WITH AND WITHOUT CONTRAST CLINICAL HISTORY: new onset leg weakness, prostate cancer COMPARISON STUDY: Lumbar spine CT December 04, 2021. Lumbar spine MRI November 14, 2021. TECHNIQUE: Utilizing a 1.5 Arely magnet and dedicated coil, multiplanar, multiecho imaging of the elizabeth mbar spine was performed before and after uneventful IV administration of 8.5 mL of Gadavist. FINDINGS: For purposes of numbering on this exam, the L5-S1 disc space is assigned to axial image 19 of 30 of the lower axial sequences. Alignment of the lumbar spine is anatomic. Vertebral body heights are maintained. The conus terminates at the mid L1 level. There is no mass or abnormal enhancement w ithin the lumbar canal. Note is made of a small nodular focus of enhancement within the anterior epid ural space at the T11 level. This represents epidural extension of tumor. Extensive multifocal marrow replacement within the lumbar spine, sacrum and coccyx is noted. This has slightly progressed since MRI of November 14, 2021. No pathologic fracture within the lumbar spine. The central canal and neur al foramen are patent. Mild multilevel degenerative changes are present. A few prominent left periaor tic lymph nodes measure up to 1.3 x 0.9 cm. IMPRESSION: Extensive skeletal metastatic disease within the lumbar spine which has mildly progressed since MRI o f November 14, 2021. Minimal epidural extension of tumor at the T11 level. No pathologic fracture wi thin the lumbar spine. ACT 112: Negative or not required by law. Electronically signed by: Onel Poe M.D. 12/06/2021 9:13 AM
[2021-12-06] MEDS: HEPARIN SOD 5,000 UNIT/0.5 ML VIAL SQ SCH ×2 (09:54→20:32)
[2021-12-06] MEDS ORDERED: SODIUM CHLORIDE 0.65% NA SOLN 45 ML (OCEAN) PRN (11:33)
--- NOTE | 2021-12-06 11:41 | Magnetic Resonance Report ---
MRI OF THE CERVICAL SPINE COMBO CLINICAL HISTORY: Prostate cancer. Lower extremity weakness. COMPARISON STUDY: CT of the cervical spine dated 12/04/2021. TECHNIQUE: MRI of the cervical spine is performed utilizing various T1 and T2-weighted sequences in t he axial and sagittal planes. Contrast enhanced sequences were acquired following the IV administrati on of 8.5 cc of Gadavist. The examination is compromised by motion artifact. FINDINGS: Cervical spine: Again seen is evidence of extensive multifocal osseous metastatic disease throughout the cervical spine. There are mild compression deformities of C7, T1, T2, and T3. Vertebral body heig ht is well maintained throughout the cervical spine. Alignment is preserved. The atlantodental articu lation is maintained. The spinous processes appear intact. Intervertebral discs: Disc desiccation and mild loss of height is seen throughout the cervical spine. Central canal: The cervical cord is normal in morphology and signal intensity. No abnormal postcontra st enhancement is identified. There is abnormal enhancing soft tissue within the anterior and posteri or epidural space in the upper thoracic spine. This is best seen on the sagittal postcontrast images, and extends posteriorly from C7 into the thoracic region and anteriorly from T1 into the thoracic re gion. This is consistent with epidural tumor. This effaces the thecal sac in the upper thoracic regio n. C2-C3: Facet arthropathy is of no consequence. The central canal and neural foramina are patent. C3-C4: A posterior disc osteophyte complex effaces the ventral subarachnoid space. Uncovertebral and facet arthropathy contribute to mild right neural foraminal stenosis. The left neural foramen is chester r. C4-C5: A posterior disc osteophyte complex effaces the ventral subarachnoid space. Facet arthropathy is of no consequence. The neural foramina are patent. C5-C6: A posterior disc osteophyte complex abuts the ventral cord. Facet arthropathy is of no consequ ence. The neural foramina are patent. C6-C7: Unremarkable. C7-T1: Unremarkable. Soft tissues: Enhancing paravertebral soft tissue in the upper thoracic region is consistent with met astatic disease. There is mild nonspecific prevertebral edema in the cervical region. Brain parenchyma: The visualized brain parenchyma at the skull base is within normal limits. IMPRESSION: 1. Again seen is extensive/multifocal osseous metastatic disease as above. 2. Mild chronic compression deformities in the lower cervical and upper thoracic region as above. 3. Abnormal enhancing soft tissue within the anterior and posterior epidural space in the upper thora cic region as above is consistent with metastatic disease. See above. 4. The cervical cord is normal in morphology and signal intensity. Dictated: 12/06/2021 10:09 AM Transcribed: 12/06/2021 10:37 AM Cecilia [id number] [email or web address]_Hamilton Electronically signed by: Julio Cesar Mcgraw M.D. 12/06/2021 11:39 AM
--- NOTE | 2021-12-06 11:52 | Magnetic Resonance Report ---
MRI OF THE THORACIC SPINE COMBO CLINICAL HISTORY: Prostate cancer. Myelopathy. COMPARISON STUDY: CT of the thoracic spine dated 12/04/2021. TECHNIQUE: MRI of the thoracic spine is performed utilizing various T1 and T2-weighted sequences in t he axial and sagittal planes. Contrast-enhanced sequences are acquired following the IV administratio n of 8.5 cc of Gadavist. FINDINGS: Again seen is extensive/multifocal osseous metastatic disease. This is seen throughout the thoracic spine including the posterior elements. There are also bilateral rib lesions. There are recreation program specialist jackelyn compression deformities of C7, T1, T2, and T3. Disc desiccation and loss of height is seen throug hout the thoracic region. There is extensive abnormal enhancing paravertebral soft tissue seen extend ing from T4 to T7 consistent with tumor. Additionally, there is abnormal enhancing epidural soft tiss ue in the upper thoracic region. This is seen posteriorly from C7 to T10, and anteriorly from T1 thro ugh T8. This is consistent with epidural tumor. This is greatest at T3-T6, with effacement of the tho racic spinal cord. This also involves several of the bilateral neural foramina at these levels, great est from T3-T4 through T5-T6. The thoracic cord is normal in morphology. There is mild signal heterog eneity within the thoracic cord at the level of T3 which may represent mild edema. No abnormal cord e nhancement is identified. The conus medullaris terminates at the level of L1. There are small pleural effusions. IMPRESSION: 1. Again seen is evidence of extensive osseous metastatic disease. 2. There is paravertebral tumor in the upper thoracic region as above. 3. There is evidence of extensive epidural tumor as detailed above, corresponding to the findings on the 12/04/[address] 4. Heterogeneous signal is noted within the thoracic cord at the level of T3 which may represent mild edema. 5. Chronic compression deformities as above. There is no MRI evidence of acute pathological fracture. Dictated: 12/06/2021 10:53 AM Transcribed: 12/06/2021 11:46 AM Cecilia [id number] [email or web address]_Hamilton Electronically signed by: Julio Cesar Mcgraw M.D. 12/06/2021 11:51 AM
[2021-12-06] MEDS ORDERED: bisacodyL 5 MG TABEC PO PRN (11:55)
--- NOTE | 2021-12-06 13:35 | Neurology Progress Note ---
Date of Service December 06, 2021 Assessment & Plan (1) Paraparesis of both lower limbs: Plan: Impression: The patient has history of metastatic prostate cancer, with extensive spinal osseous and epidural metastases and spinal canal narrowing, who presents with new onset lower extremity weakness and some new sensory deficit. He also has urinary retention. Such symptoms suggestive of myelopathy which can be compressive or metastatic. Bony and epidural metastases are common in prostate cancer, but very occasional intraluminal cord metastases. Based on current spinal MRI findings, there is some worsening of thoracic epidural tumor involvement as well as bony changes with neuroforaminal narrowing, and probable cord compression at T3 with cord edema, which is likely cause of the patient's recent worsening symptoms. The patient was seen by radiation oncology and radiation therapy is scheduled for tomorrow. Plan/recommendations: I would suggest 30 mg IV dexamethasone bolus now, then 6 mg every 6 hours for next 3 to 5 days. Then, dosage will be tapered down. Radiation oncology evaluation and recommendations are appreciated. I agree with their recommendations. We will follow the patient is with you. (2) Prostate cancer metastatic to bone: Plan: Impression: The patient was diagnosed with prostate cancer in August 2020.He has been on chemotherapy with Firmagon, Xfevea plus apalutamide and received radiation therapy to the lumbar, thoracic and pelvic region. The recent spinal MRI showed some extension of thoracic epidural involvement as well as spinal stenosis and T3 level cord edema. Plan/recommendations: As seen above. Admission and Anticipated Discharge Date Admission Date: December 04, 2021 Subjective Patient seen and examined at bedside. He reports that his symptoms has been unchanged except slight improvement of motor strength in legs after Dexamethasone first dose. Spinal MRI results are explained to the patient and family. They are in agreemenet with IV steroid and palliative radiation therapy as suggested by radiation oncology. No new symptoms. Eats and sleeps well. Review of Systems Review of Systems: All systems reviewed & are unremarkable except as noted in HPI & below Physical Exam Physical Exam: General Examination: Constitutional: Well developed person in no acute distress. HEENT: Normal exam with inspection. CV: Hearth rhythm is regular. Neck: Supple, no carotid bruits. Lungs: Non-labored and comfortable breathing. Abdomen: Soft, non-tender, non-distended. Skin: No rash or ecchymosis. Extremities: No edema or cyanosis NEUROLOGICAL EXAMINATION: Mental Status: Alert and oriented to place, person and time. Cranial Nerves: II-XII are intact. No nystagmus. Funduscopy: Normal looking optic discs. Motor: 5/5 in upper extremities and 3+/5 in hip flexors and 4-/5 in other muscles of lower extremities without asymmetry except left ankle dorsiflexors 4- and right ankle dorsiflexors are 4+/5. Tone: Normal without spasticity or rigidity. Sensory: There is no clear or sensory leveling during physical examination. However, the patient describes bandlike altered feeling between T5-T8 levels. He also has decreased sensation on left lower extremity below knee, decreased sensation of right proximal thigh. He also describes decreased sensation in genitalia and groin region. DTRs: 2+ in upper extremities, 3 - and knees, and 1+ in ankles symmetrically. There is no Babinski. Coordination: No dysmetria with FTN testing. Speech: Fluent. Comprehension is intact. Gait: The patient cannot walk. With help, he can stand up with walker. Musculoskeletal: Normal muscle bulk, no atrophy. Results & Data ([facility]) Vital Signs (Past 12 Hours) Vital Signs Temp Pulse Resp BP BP Pulse Ox O2 Del Method 12/06/21 11:03 36.6 C 98 H 18 137/78 93 Room Air 12/06/21 06:48 37.0 C 105 H 20 142/85 H 95 12/06/21 04:10 36.9 C 106 H 20 151/78 H 94 12/06/21 01:37 Nasal Cannula O2 Flow Rate 12/06/21 11:03 12/06/21 06:48 2 12/06/21 04:10 2 12/06/21 01:37 2 Laboratory Results Laboratory Results - last 24 hr 12/06/21 12/06/21 06:52 06:52 WBC 6.30 RBC 3.31 L Hgb 9.1 L Hct 28.2 L MCV 85.2 MCH 27.5 MCHC 32.3 RDW Std Deviation 53.5 H RDW Coeff of Jasmyn 17.4 H Plt Count 149 MPV 9.5 Immature Gran % (Auto) 7.1 Neut % (Auto) 82.5 Lymph % (Auto) 4.0 [place] % (Auto) 5.9 Eos % (Auto) 0.2 Baso % (Auto) 0.3 Neut # (Auto) 5.20 Lymph # (Auto) 0.25 L [place] # (Auto) 0.37 Eos # (Auto) 0.01 Baso # (Auto) 0.02 Immature Gran # (Auto) 0.45 H Absolute Nucleated RBC 0.04 H Nucleated RBC % (auto) 0.6 Sodium 132 L Potassium 3.9 Chloride 99 Carbon Dioxide 26 Anion Gap 7 BUN 8 Creatinine 0.51 L Est Cr Clr Drug Dosing 144.2 Est GFR ( Amer) 138.3 Est GFR (Non-Af Amer) 119.3 BUN/Creatinine Ratio 15.7 Glucose 116 H Calcium 8.1 L Diagnostic Findings Abdomen/Pelvis CT 12/04/21 08:[address] WITH IV CONTRAST CT DOSE: HISTORY: Metastatic disease bilateral lower extremity weakness, back pain, retenti TECHNIQUE: Multiaxial CT images of the abdomen and pelvis were performed following the use of intravenous contrast. A dose lowering technique was utilized adhering to the principles of ALARA. COMPARISON STUDY: Abdomen and pelvis CT 12/02/2021. FINDINGS: There are trace bilateral pleural effusions which are new from the prior study. Patchy bilateral lower lobe densities have also slightly progressed. There is emphysema again noted at the lung bases. Small nodular densities along the right minor fissure remain stable. No pneumoperitoneum. No pneumatosis. Multifocal osteoblastic metastatic disease is similar to the prior CT examination. No acute fractures identified. There again noted a few scattered hypodense lesions within the liver. These are better appreciated on this examination likely due to the time of contrast. There are 2 tandem lesions identified. These likely represent metastatic disease. There are few punctate gallstones. No gallbladder wall thickening. The spleen and right adrenal gland are unremarkable. A 2.1 cm left adrenal gland nodules again noted. There are few prominent left para-aortic lymph nodes, unchanged. These are concerning for metastatic disease. The kidneys enhance normally. No hydronephrosis. Bilateral common iliac artery stents are patent. No pelvic lymphadenopathy. There is a Malin catheter within the bladder. There is mild bladder wall thickening. Fluid- filled nondilated loops of large and small bowel seen throughout the abdomen. No evidence for a bowel obstruction. IMPRESSION: 1. Redemonstration of the metastatic disease within the abdomen and pelvis as described above. This is similar to the prior study. 2. Fluid-filled nondilated loops of large and small bowel. This can be seen in the setting of a gastroenteritis/diarrheal illness. No evidence for bowel obstruction. 3. Cholelithiasis. 4. Patchy bibasilar densities and trace bilateral pleural effusions have progressed. This could represent atelectasis or a pneumonia. 5. Bladder wall thickening. This may represent a cystitis. Recommend correlation with urinalysis. ACT 112: Negative or not required by law. Electronically signed by: Francisco Javier Navarrete M.D. 12/04/2021 12:[address] 12/04/21 08:58 CT cervical spine wo con CLINICAL HISTORY: 56 years-old Male with metstatic disease BLE weakness, back pain, retenti. Acute neck pain with upper extremity weakness in a patient with skeletal metastasis COMPARISON: CT thoracic spine of same day, MRI thoracic spine 11/14/2021 TECHNIQUE: Multiple axial CT images of the cervical spine were obtained without contrast. A dose lowering technique was utilized adhering to the principles of ALARA. FINDINGS: Multifocal osteoblastic skeletal metastasis redemonstrated. Mild superior endplate compression again noted at C7, T1 and T2 which is similar to the prior study. There is mild multilevel intervertebral disc space narrowing and spondylitic spurring with [id number] facet arthrosis. No acute fracture, subluxation or endplate erosion identified. No pneumothorax. Emphysematous changes of the lung apices without pneumothorax. There is no prevertebral edema of the cervical spine. There is however mild paravertebral edema of the upper thoracic spine which was also present on the comparison MRI. No high-grade central canal or neural foraminal narrowing of the cervical spine identified. IMPRESSION: 1. Multifocal osteoblastic skeletal metastasis redemonstrated. No acute pathologic fracture identified. 2. Unchanged appearance of the mild C7, T1 and T2 compression deformities. 3. Upper thoracic paravertebral edema is similar to the 11/14/2021 MRI exam. 4. Pulmonary emphysema. ACT 112: Negative or not required by law. The above report was generated using voice recognition software. It may contain grammatical, syntax or spelling errors. Electronically signed by: Rick Moreno M.D. 12/04/2021 11:[address] 12/04/21 08:58 CT lumbar spine wo con CLINICAL HISTORY: metstatic disease BLE weakness, back pain, retenti TECHNIQUE: Multidetector row helical CT of the lumbar spine was performed without administration of intravenous contrast. Coronal and sagittal reformations were obtained. Automated dose lowering techniques and/or adjustment according to patient size were utilized for this exam. Comparison: Comparison is made to CT abdomen pelvis 07/07/2021 FINDINGS: For counting purposes, the last complete intervertebral disc space is considered L5-S1.Numerous sclerotic foci are seen throughout the skeleton. These are stable to minimally enlarged from prior CT. For example, a 19 mm focus of the superior aspect of the L1 vertebral body previously measured 18 mm. Mild degenerative changes are seen most prominent at L3-L4. Please see CT abdomen pelvis for detailed findings of the soft tissues. IMPRESSION: Numerous sclerotic foci within the skeleton are stable to minimally enlarged from prior exam compatible with metastatic disease. No evidence of acute fracture. ACT 112: Negative or not required by law. Electronically signed by: Gonzalez Vallejo M.D. 12/04/2021 11:[address] 12/04/21 08:[address] DOSE: 2333.11 mGy.cm HISTORY: metastatic disease with bilateral lower extremity weakness, back pain, retention TECHNIQUE: Multiaxial CT images of the thoracic spine were performed and reformatted in the sagittal and coronal plane without the use of contrast. A dose lowering technique was utilized adhering to the principles of ALARA. COMPARISON: Outside hospital thoracic spine MRI 11/14/2021. FINDINGS: Redemonstration of the extensive multifocal osteoblastic metastatic disease seen throughout the thoracic spine. This is similar to the prior outside hospital thoracic spine MRI. Mild super endplate compression at C7, T1, T2, and T3 is similar to the prior study. This is likely chronic. No acute fractures identified within the thoracic spine. Paravertebral edema and soft tissue thickening from the T1-T8 level is again noted and is consistent with metastatic disease. This is best seen at the T5-T6 levels which demonstrates up to 8 mm of prevertebral soft tissue thickening. There is associated epidural soft tissue from the T3-T8 levels also consistent with metastatic disease. This epidural soft tissue results in [id number] central canal narrowing within the upper to mid thoracic spine most pronounced at the T5-T6 level. The transverse diameter of the thecal sac at this level is approximately 7 mm this is also similar to the prior study. There are trace bilateral pleural effusions. Emphysema. Patchy densities within the lung bases posteriorly may represent atelectasis. A pneumonia could also have a similar appearance. IMPRESSION: 1. Redemonstration of extensive multifocal osteoblastic metastatic disease seen throughout the thoracic spine and visualized ribs. This is similar to the prior outside hospital MRI. 2. There is also abnormal paravertebral and epidural soft tissue from the T1-T8 levels consistent with metastatic disease. The epidural component is most pronounced at the T5-T6 level which results in moderate central canal narrowing. This is also similar to the prior outside hospital MRI. 3. Trace bilateral pleural effusions. 4. Mild superior endplate compression deformities at C7, T1, T2, T3 are also similar to the prior study. No acute fractures identified. 5. Additional findings as described above. ACT 112: Negative or not required by law. Electronically signed by: Francisco Javier Navarrete M.D. 12/04/2021 12:15 PM Thoracic Spine MRI 12/05/21 16:51 MRI OF THE THORACIC SPINE COMBO CLINICAL HISTORY: Prostate cancer. Myelopathy. COMPARISON STUDY: CT of the thoracic spine dated 12/04/2021. TECHNIQUE: MRI of the thoracic spine is performed utilizing various T1 and T2- weighted sequences in the axial and sagittal planes. Contrast-enhanced sequences are acquired following the IV administration of 8.5 cc of Gadavist. FINDINGS: Again seen is extensive/multifocal osseous metastatic disease. This is seen throughout the thoracic spine including the posterior elements. There are also bilateral rib lesions. There are chronic compression deformities of C7, T1, T2, and T3. Disc desiccation and loss of height is seen throughout the thoracic region. There is extensive abnormal enhancing paravertebral soft tissue seen extending from T4 to T7 consistent with tumor. Additionally, there is abnormal enhancing epidural soft tissue in the upper thoracic region. This is seen posteriorly from C7 to T10, and anteriorly from T1 through T8. This is consistent with epidural tumor. This is greatest at T3-T6, with effacement of the thoracic spinal cord. This also involves several of the bilateral neural foramina at these levels, greatest from T3-T4 through T5-T6. The thoracic cord is normal in morphology. There is mild signal heterogeneity within the thoracic cord at the level of T3 which may represent mild edema. No abnormal cord enhance ment is identified. The conus medullaris terminates at the level of L1. There are small pleural effusions. IMPRESSION: 1. Again seen is evidence of extensive osseous metastatic disease. 2. There is paravertebral tumor in the upper thoracic region as above. 3. There is evidence of extensive epidural tumor as detailed above, corresponding to the findings on the 12/04/[address] 4. Heterogeneous signal is noted within the thoracic cord at the level of T3 which may represent mild edema. 5. Chronic compression deformities as above. There is no MRI evidence of acute pathological fracture. Dictated: 12/06/2021 10:53 AM Transcribed: 12/06/2021 11:46 AM Cecilia [id number] [email or web address] Electronically signed by: Julio Cesar Mcgraw M.D. 12/06/2021 11:51 AM Lumbar Spine MRI 12/05/21 16:52 MRI OF THE LUMBAR SPINE WITH AND WITHOUT CONTRAST CLINICAL HISTORY: new onset leg weakness, prostate cancer COMPARISON STUDY: Lumbar spine CT December 04, 2021. Lumbar spine MRI November 14, 2021. TECHNIQUE: Utilizing a 1.5 Arely magnet and dedicated coil, multiplanar, multiecho imaging of the lumbar spine was performed before and after uneventful IV administration of 8.5 mL of Gadavist. FINDINGS: For purposes of numbering on this exam, the L5-S1 disc space is assigned to axial image 19 of 30 of the lower axial sequences. Alignment of the lumbar spine is anatomic. Vertebral body heights are maintained. The conus terminates at the mid L1 level. There is no mass or abnormal enhancement within the lumbar canal. Note is made of a small nodular focus of enhancement within the anterior epidural space at the T11 level. This represents epidural extension of tumor. Extensive multifocal marrow replacement within the lumbar spine, sacr um and coccyx is noted. This has slightly progressed since MRI of November 14, 2021. No pathologic fracture within the lumbar spine. The central canal and neural foramen are patent. Mild multilevel degenerative changes are present. A few prominent left periaortic lymph nodes measure up to 1.3 x 0.9 cm. IMPRESSION: Extensive skeletal metastatic disease within the lumbar spine which has mildly progressed since MRI of November 14, 2021. Minimal epidural extension of tumor at the T11 level. No pathologic fracture within the lumbar spine. ACT 112: Negative or not required by law. Electronically signed by: Onel Poe M.D. 12/06/2021 9:13 AM Cervical Spine MRI 12/05/21 16:53 MRI OF THE CERVICAL SPINE COMBO CLINICAL HISTORY: Prostate cancer. Lower extremity weakness. COMPARISON STUDY: CT of the cervical spine dated 12/04/2021. TECHNIQUE: MRI of the cervical spine is performed utilizing various T1 and T2- weighted sequences in the axial and sagittal planes. Contrast enhanced sequences were acquired following the IV administration of 8.5 cc of Gadavist. The examination is compromised by motion artifact. FINDINGS: Cervical spine: Again seen is evidence of extensive multifocal osseous metastatic disease throughout the cervical spine. There are mild compression deformities of C7, T1, T2, and T3. Vertebral body height is well maintained throughout the cervical spine. Alignment is preserved. The atlantodental articulation is maintained. The spinous processes appear intact. Intervertebral discs: Disc desiccation and mild loss of height is seen throughout the cervical spine. Central canal: The cervical cord is normal in morphology and signal intensity. No abnormal postcontrast enhancement is identified. There is abnormal enhancing soft tissue within the anterior and posterior epidural space in the upper thoracic spine. This is best seen on the sagittal postcontrast images, and extends posteriorly from C7 into the thoracic region and anteriorly from T1 into the thoracic region. This is consistent with epidural tumor. This effaces the thecal sac in the upper thoracic region. C2-C3: Facet arthropathy is of no consequence. The central canal and neural foramina are patent. C3-C4: A posterior disc osteophyte complex effaces the ventral subarachnoid space. Uncovertebral and facet arthropathy contribute to mild right neural foraminal stenosis. The left neural foramen is clear. C4-C5: A posterior disc osteophyte complex effaces the ventral subarachnoid space. Facet arthropathy is of no consequence. The neural foramina are patent. C5-C6: A posterior disc osteophyte complex abuts the ventral cord. Facet arthropathy is of no consequence. The neural foramina are patent. C6-C7: Unremarkable. C7-T1: Unremarkable. Soft tissues: Enhancing paravertebral soft tissue in the upper thoracic region is consistent with metastatic disease. There is mild nonspecific prevertebral edema in the cervical region. Brain parenchyma: The visualized brain parenchyma at the skull base is within normal limits. IMPRESSION: 1. Again seen is extensive/multifocal osseous metastatic disease as above. 2. Mild chronic compression deformities in the lower cervical and upper thoracic region as above. 3. Abnormal enhancing soft tissue within the anterior and posterior epidural space in the upper thoracic region as above is consistent with metastatic disease. See above. 4. The cervical cord is normal in morphology and signal intensity. Dictated: 12/06/2021 10:09 AM Transcribed: 12/06/2021 10:37 AM Cecilia [id number] [email or web address] Electronically signed by: Julio Cesar Mcgraw M.D. 12/06/2021 11:39 AM
[2021-12-06] MEDS ORDERED: DEXTROSE 5% IV ONE (14:00)
[2021-12-06] MEDS ORDERED: DEXAMETHASONE IV ONE (14:00)
[2021-12-06] MEDS: ONDANSETRON INJ 2 MG/ML 2 ML VIAL IV PRN (15:14)
[2021-12-06] MEDS ORDERED: HYDROmorphone INJ 1 MG/ML SYRINGE IV ONE (17:08)
--- NOTE | 2021-12-06 17:15 | Hospitalist Progress Note ---
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 Admitting vitals are stable, admitting imagings [CTAP/cervical CT/lumbar CT/thoracic CT] reviewed with multiple metastasis noted. MRI cervical showed extensive/multifocal osseous metastatic disease. Abnormal enhancing soft tissue within the anterior and posterior epidural space in the upper thoracic region as above is consistent with metastatic disease. MRI lumbar showed extensive skeletal metastatic disease within the lumbar spine which has mildly progressed since MRI of November 14, 2021. Minimal epidural extension of tumor at the T11 level. MRI thoracic showed evidence of extensive epidural tumor as detailed above, corresponding to the findings on the 12/04/[address] Radiation Oncology on board Case discussed with radiation oncology that plan for CT simulation today and plan to start on radiation treatment tomorrow Neurology on board recommended to continue IV dexamethasone 6mg QID Dr. [facility] was notified about the MRI findings PT/OT eval Acute on chronic anemia: Baseline hemoglobin appears around 10-11, admitting hemoglobin of 8.2. hgb 9.1 today Serum iron within normal limits. FOBT negative. 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 He says his next chemotherapy is on ; Dr. Nolasoc informed regarding the hospitalization. We will provide him updates. He is on morphine extended release 30 mg twice daily as per palliative care and Percocet every 4 hours as needed. Plan for radiation therapy tomorrow Tobacco use disorder: Current tobaco use, since age 13, 1 ppd, declined nicotine patch, counselled. DVT px; Heparin Full code. Admission and Anticipated Discharge Date Admission Date: December 04, 2021 Subjective Pt was seen and examined for follow up of back pain Lying in bed with no distress with at bedside Pt said that his lower extremities his very weak He also complaint of constipation Denies any chest pain, palpitation, dizziness and SOB Review of Systems Review of Systems: All systems reviewed & are unremarkable except as noted in Subjective Physical Exam Physical Exam: General- No acute distress Head- atraumatic Eyes- PERRL, EOMI, ENT- oropharynx clear Neck- supple, no JVD Lungs- clear to auscultation Heart- regular rhythm; no murmur Abdomen- normal bowel sounds, soft, nontender Extremities- no calf tenderness, decreases motor strength in b/l LE (unable to lift her leg up ) Neuro- alert, oriented x 3; PERRL, EOMI; no facial palsy; no dysarthria Skin- warm & dry Results & Data Results & Data ([facility]) Vital Signs (Past 12 Hours) Vital Signs Temp Pulse Resp BP BP Pulse Ox Pulse Ox 12/06/21 15:17 36.4 C L 99 H 20 145/79 H 97 12/06/21 13:14 98 12/06/21 11:03 36.6 C 98 H 18 137/78 93 12/06/21 06:48 37.0 C 105 H 20 142/85 H 95 Pulse Ox Pulse Ox O2 Del Method O2 Flow Rate O2 Flow Rate O2 Flow Rate O2 Flow Rate 12/06/21 15:17 Nasal Cannula 2 12/06/21 13:14 90 86 L 2 0 0 12/06/21 11:03 Room Air 12/06/21 06:48 2
[2021-12-06] MEDS: dexAMETHasone 6 MG in SYRINGE 0 ML IV SCH (20:31)
[2021-12-07] MEDS: dexAMETHasone 6 MG in SYRINGE 0 ML IV SCH ×4 (02:25→19:36)
[2021-12-07] MEDS: oxyCODONE/ACETAMINOPHEN 10-325 TAB PO PRN ×4 (05:21→19:07)
[2021-12-07] MEDS: MoRPHine SULFATE CR 15 MG TABCR PO SCH ×2 (09:11→20:42)
[2021-12-07] MEDS: GABAPENTIN 300 MG CAP PO SCH ×2 (09:13→20:42)
[2021-12-07] MEDS: ROSUVASTATIN CALCIUM 20 MG TAB PO SCH (09:13)
[2021-12-07] MEDS: NICOTINE 21 MG/24 HR TDSY TD SCH (09:13)
[2021-12-07] MEDS: FAMOTIDINE 40 MG TABLET PO SCH (09:13)
[2021-12-07] MEDS: HEPARIN SOD 5,000 UNIT/0.5 ML VIAL SQ SCH ×2 (09:13→20:42)
[2021-12-07] MEDS: LORATADINE 10 MG TAB PO SCH (09:13)
[2021-12-07] MEDS: predniSONE 10 MG TABLET PO SCH (09:13)
[2021-12-07] MEDS: ASPIRIN 81 MG ECTAB PO SCH (09:13)
[2021-12-07] MEDS: MOVANTIK PO SCH (09:14)
--- NOTE | 2021-12-07 16:18 | Neurology Progress Note ---
Date of Service December 07, 2021 Assessment & Plan (1) Paraparesis of both lower limbs: Plan: Impression: The patient has history of metastatic prostate cancer, with extensive spinal osseous and epidural metastases and spinal canal narrowing, who presents with new onset lower extremity weakness and some new sensory deficit. He also has urinary retention. Such symptoms suggestive of myelopathy which can be compressive or metastatic. Bony and epidural metastases are common in prostate cancer, but very occasional intraluminal cord metastases. Based on current spinal MRI findings, there is some worsening of thoracic epidural tumor involvement as well as bony changes with neuroforaminal narrowing, and probable cord compression at T3 with cord edema, which is likely cause of the patient's recent worsening symptoms. The patient was seen by radiation oncology and radiation therapy is scheduled for today. Plan/recommendations: Dexamethasone 6 mg every 6 hours for next 3 to 5 days. Then, dosage will be tapered down. Radiation therapy to thoracic spine (2) Prostate cancer metastatic to bone: Plan: Impression: The patient was diagnosed with prostate cancer in August 2020.He has been on chemotherapy with Firmagon, Xfevea plus apalutamide and received radiation therapy to the lumbar, thoracic and pelvic region. The recent spinal MRI showed some extension of thoracic epidural involvement as well as spinal stenosis and T3 level cord edema. Plan/recommendations: As seen above. Admission and Anticipated Discharge Date Admission Date: December 04, 2021 Subjective The patient reports slight motor improvement of lower extremities. She tolerates dexamethasone well. She is ready to get radiation therapy at thoracic spine. Review of Systems Review of Systems: All systems reviewed & are unremarkable except as noted in HPI & below Physical Exam Physical Exam: General Examination: Constitutional: Well developed person in no acute distress. HEENT: Normal exam with inspection. CV: Hearth rhythm is regular. Neck: Supple, no carotid bruits. Lungs: Non-labored and comfortable breathing. Abdomen: Soft, non-tender, non-distended. Skin: No rash or ecchymosis. Extremities: No edema or cyanosis NEUROLOGICAL EXAMINATION: Mental Status: Alert and oriented to place, person and time. Cranial Nerves: II-XII are intact. No nystagmus. Funduscopy: Normal looking optic discs. Motor: 5/5 in upper extremities and 3+/5 in hip flexors and 4-/5 in other muscles of lower extremities without asymmetry except left ankle dorsiflexors 4- and right ankle dorsiflexors are 4+/5. Tone: Normal without spasticity or rigidity. Sensory: There is no clear or sensory leveling during physical examination. However, the patient describes bandlike altered feeling between T5-T8 levels. He also has decreased sensation on left lower extremity below knee, decreased sensation of right proximal thigh. He also describes decreased sensation in genitalia and groin region. DTRs: 2+ in upper extremities, 3 - and knees, and 1+ in ankles symmetrically. There is no Babinski. Coordination: No dysmetria with FTN testing. Speech: Fluent. Comprehension is intact. Gait: The patient cannot walk. With help, he can stand up with walker. Musculoskeletal: Normal muscle bulk, no atrophy. Results & Data ([facility]) Vital Signs (Past 12 Hours) Vital Signs Temp Pulse Pulse Resp BP Pulse Ox O2 Del Method 12/07/21 15:42 87 12/07/21 14:50 36.6 C 88 18 160/85 H 98 Room Air 12/07/21 09:15 Room Air 12/07/21 10:42 36.5 C 99 H 18 142/79 H 91 Room Air 12/07/21 07:29 91 H 12/07/21 07:18 36.4 C L 89 20 147/82 H 95 Nasal Cannula O2 Flow Rate 12/07/21 15:42 12/07/21 14:50 12/07/21 09:15 12/07/21 10:42 12/07/21 07:29 12/07/21 07:18 2 Diagnostic Findings Abdomen/Pelvis CT 12/04/21 08:[address] WITH IV CONTRAST CT DOSE: HISTORY: Metastatic disease bilateral lower extremity weakness, back pain, retenti TECHNIQUE: Multiaxial CT images of the abdomen and pelvis were performed following the use of intravenous contrast. A dose lowering technique was utilized adhering to the principles of ALARA. COMPARISON STUDY: Abdomen and pelvis CT 12/02/2021. FINDINGS: There are trace bilateral pleural effusions which are new from the prior study. Patchy bilateral lower lobe densities have also slightly prog ressed. There is emphysema again noted at the lung bases. Small nodular densities along the right minor fissure remain stable. No pneumoperitoneum. No pneumatosis. Multifocal osteoblastic metastatic disease is similar to the prior CT examination. No acute fractures identified. There again noted a few scattered hypodense lesions within the liver. These are better appreciated on this examination likely due to the time of contrast. There are 2 tandem lesions identified. These likely represent metastatic disease. There are few punctate gallstones. No gallbladder wall thickening. The spleen and right adrenal gland are unremarkable. A 2.1 cm left adrenal gland nodules again noted. There are few prominent left para-aortic lymph nodes, unchanged. These are concerning for metastatic disease. The kidneys enhance normally. No hydronephrosis. Bilateral common iliac artery stents are patent. No pelvic lymphadenopathy. There is a Malin catheter within the bladder. There is mild bladder wall thickening. Fluid- filled nondilated loops of large and small bowel seen throughout the abdomen. No evidence for a bowel obstruction. IMPRESSION: 1. Redemonstration of the metastatic disease within the abdomen and pelvis as described above. This is similar to the prior study. 2. Fluid-filled nondilated loops of large and small bowel. This can be seen in the setting of a gastroenteritis/diarrheal illness. No evidence for bowel obstruction. 3. Cholelithiasis. 4. Patchy bibasilar densities and trace bilateral pleural effusions have progressed. This could represent atelectasis or a pneumonia. 5. Bladder wall thickening. This may represent a cystitis. Recommend correlation with urinalysis. ACT 112: Negative or not required by law. Electronically signed by: Francisco Javier Navarrete M.D. 12/04/2021 12:[address] 12/04/21 08:58 CT cervical spine wo con CLINICAL HISTORY: 56 years-old Male with metstatic disease BLE weakness, back pain, retenti. Acute neck pain with upper extremity weakness in a patient with skeletal metastasis COMPARISON: CT thoracic spine of same day, MRI thoracic spine 11/14/2021 TECHNIQUE: Multiple axial CT images of the cervical spine were obtained without contrast. A dose lowering technique was utilized adhering to the principles of ALARA. FINDINGS: Multifocal osteoblastic skeletal metastasis redemonstrated. Mild superior endplate compression again noted at C7, T1 and T2 which is similar to the prior study. There is mild multilevel intervertebral disc space narrowing and spondylitic spurring with [id number] facet arthrosis. No acute fracture, subluxation or endplate erosion identified. No pneumothorax. Emphysematous changes of the lung apices without pneumothorax. There is no prevertebral edema of the cervical spine. There is however mild paravertebral edema of the upper thoracic spine which was also present on the comparison MRI. No high-grade central canal or neural foraminal narrowing of the cervical spine identified. IMPRESSION: 1. Multifocal osteoblastic skeletal metastasis redemonstrated. No acute pathologic fracture identified. 2. Unchanged appearance of the mild C7, T1 and T2 compression deformities. 3. Upper thoracic paravertebral edema is similar to the 11/14/2021 MRI exam. 4. Pulmonary emphysema. ACT 112: Negative or not required by law. The above report was generated using voice recognition software. It may contain grammatical, syntax or spelling errors. Electronically signed by: Rick Moreno M.D. 12/04/2021 11:[address] 12/04/21 08:58 CT lumbar spine wo con CLINICAL HISTORY: metstatic disease BLE weakness, back pain, retenti TECHNIQUE: Multidetector row helical CT of the lumbar spine was performed without administration of intravenous contrast. Coronal and sagittal reformations were obtained. Automated dose lowering techniques and/or adjustment according to patient size were utilized for this exam. Comparison: Comparison is made to CT abdomen pelvis 07/07/2021 FINDINGS: For counting purposes, the last complete intervertebral disc space is considered L5-S1.Numerous sclerotic foci are seen throughout the skeleton. These are stable to minimally enlarged from prior CT. For example, a 19 mm focus of the superior aspect of the L1 vertebral body previously measured 18 mm. Mild degenerative changes are seen most prominent at L3-L4. Please see CT abdomen pelvis for detailed findings of the soft tissues. IMPRESSION: Numerous sclerotic foci within the skeleton are stable to minimally enlarged from prior exam compatible with metastatic disease. No evidence of acute fracture. ACT 112: Negative or not required by law. Electronically signed by: Gonzalez Vallejo M.D. 12/04/2021 11:[address] 12/04/21 08:[address] DOSE: 2333.11 mGy.cm HISTORY: metastatic disease with bilateral lower extremity weakness, back pain, retention TECHNIQUE: Multiaxial CT images of the thoracic spine were performed and reformatted in the sagittal and coronal plane without the use of contrast. A dose lowering technique was utilized adhering to the principles of ALARA. COMPARISON: Outside hospital thoracic spine MRI 11/14/2021. FINDINGS: Redemonstration of the extensive multifocal osteoblastic metastatic disease seen throughout the thoracic spine. This is similar to the prior outside hospital thoracic spine MRI. Mild super endplate compression at C7, T1, T2, and T3 is similar to the prior study. This is likely chronic. No acute fractures identified within the thoracic spine. Paravertebral edema and soft tissue thickening from the T1-T8 level is again noted and is consistent with metastatic disease. This is best seen at the T5-T6 levels which demonstrates up to 8 mm of prevertebral soft tissue thickening. There is associated epidural soft tissue from the T3-T8 levels also consistent with metastatic disease. This epidural soft tissue results in [id number] central canal narrowing within the upper to mid thoracic spine most pronounced at the T5-T6 level. The transverse diameter of the thecal sac at this level is approximately 7 mm this is also similar to the prior study. There are trace bilateral pleural effusions. Emphysema. Patchy densities within the lung bases posteriorly may represent atelectasis. A pneumonia could also have a similar appearance. IMPRESSION: 1. Redemonstration of extensive multifocal osteoblastic metastatic disease seen throughout the thoracic spine and visualized ribs. This is similar to the prior outside hospital MRI. 2. There is also abnormal paravertebral and epidural soft tissue from the T1-T8 levels consistent with metastatic disease. The epidural component is most pronounced at the T5-T6 level which results in moderate central canal narrowing. This is also similar to the prior outside hospital MRI. 3. Trace bilateral pleural effusions. 4. Mild superior endplate compression deformities at C7, T1, T2, T3 are also similar to the prior study. No acute fractures identified. 5. Additional findings as described above. ACT 112: Negative or not required by law. Electronically signed by: Francisco Javier Navarrete M.D. 12/04/2021 12:15 PM Thoracic Spine MRI 12/05/21 16:51 MRI OF THE THORACIC SPINE COMBO CLINICAL HISTORY: Prostate cancer. Myelopathy. COMPARISON STUDY: CT of the thoracic spine dated 12/04/2021. TECHNIQUE: MRI of the thoracic spine is performed utilizing various T1 and T2- weighted sequences in the axial and sagittal planes. Contrast-enhanced sequences are acquired following the IV administration of 8.5 cc of Gadavist. FINDINGS: Again seen is extensive/multifocal osseous metastatic disease. This is seen throughout the thoracic spine including the posterior elements. There are also bilateral rib lesions. There are chronic compression deformities of C7, T1, T2, and T3. Disc desiccation and loss of height is seen throughout the thoracic region. There is extensive abnormal enhancing paravertebral soft tissue seen extending from T4 to T7 consistent with tumor. Additionally, there is abnormal enhancing epidural soft tissue in the upper thoracic region. This is seen posteriorly from C7 to T10, and anteriorly from T1 through T8. This is consistent with epidural tumor. This is greatest at T3-T6, with effacement of the thoracic spinal cord. This also involves several of the bilateral neural foramina at these levels, greatest from T3-T4 through T5-T6. The thoracic cord is normal in morphology. There is mild signal heterogeneity within the thoracic cord at the level of T3 which may represent mild edema. No abnormal cord enhancement is identified. The conus medullaris terminates at the level of L1. There are small pleural effusions. IMPRESSION: 1. Again seen is evidence of extensive osseous metastatic disease. 2. There is paravertebral tumor in the upper thoracic region as above. 3. There is evidence of extensive epidural tumor as detailed above, corresponding to the findings on the 12/04/[address] 4. Heterogeneous signal is noted within the thoracic cord at the level of T3 which may represent mild edema. 5. Chronic compression deformities as above. There is no MRI evidence of acute pathological fracture. Dictated: 12/06/2021 10:53 AM Transcribed: 12/06/2021 11:46 AM Cecilia [id number] [email or web address] Electronically signed by: Julio Cesar Mcgraw M.D. 12/06/2021 11:51 AM Lumbar Spine MRI 12/05/21 16:52 MRI OF THE LUMBAR SPINE WITH AND WITHOUT CONTRAST CLINICAL HISTORY: new onset leg weakness, prostate cancer COMPARISON STUDY: Lumbar spine CT December 04, 2021. Lumbar spine MRI November 14, 2021. TECHNIQUE: Utilizing a 1.5 Arely magnet and dedicated coil, multiplanar, multiecho imaging of the lumbar spine was performed before and after uneventful IV administration of 8.5 mL of Gadavist. FINDINGS: For purposes of numbering on this exam, the L5-S1 disc space is assigned to axial image 19 of 30 of the lower axial sequences. Alignment of the lumbar spine is anatomic. Vertebral body heights are maintained. The conus terminates at the mid L1 level. There is no mass or abnormal enhancement within the lumbar canal. Note is made of a small nodular focus of enhancement within the anterior epidural space at the T11 level. This represents epidural extension of tumor. Extensive multifocal marrow replacement within the lumbar spine, sacrum and coccyx is noted. This has slightly progressed since MRI of November 14, 2021. No pathologic fracture within the lumbar spine. The central canal and neural foramen are patent. Mild multilevel degenerative changes are present. A few prominent left periaortic lymph nodes measure up to 1.3 x 0.9 cm. IMPRESSION: Extensive skeletal metastatic disease within the lumbar spine which has mildly progressed since MRI of November 14, 2021. Minimal epidural extension of tumor at the T11 level. No pathologic fracture within the lumbar spine. ACT 112: Negative or not required by law. Electronically signed by: Onel Poe M.D. 12/06/2021 9:13 AM Cervical Spine MRI 12/05/21 16:53 MRI OF THE CERVICAL SPINE COMBO CLINICAL HISTORY: Prostate cancer. Lower extremity weakness. COMPARISON STUDY: CT of the cervical spine dated 12/04/2021. TECHNIQUE: MRI of the cervical spine is performed utilizing various T1 and T2- weighted sequences in the axial and sagittal planes. Contrast enhanced sequences were acquired following the IV administration of 8.5 cc of Gadavist. The examination is compromised by motion artifact. FINDINGS: Cervical spine: Again seen is evidence of extensive multifocal osseous metastatic disease throughout the cervical spine. There are mild compression deformities of C7, T1, T2, and T3. Vertebral body height is well maintained throughout the cervical spine. Alignment is preserved. The atlantodental articulation is maintained. The spinous processes appear intact. Intervertebral discs: Disc desiccation and mild loss of height is seen throughout the cervical spine. Central canal: The cervical cord is normal in morphology and signal intensity. No abnormal postcontrast enhancement is identified. There is abnormal enhancing soft tissue within the anterior and posterior epidural space in the upper thoracic spine. This is best seen on the sagittal postcontrast images, and extends posteriorly from C7 into the thoracic region and anteriorly from T1 into the thoracic region. This is consistent with epidural tumor. This effaces the thecal sac in the upper thoracic region. C2-C3: Facet arthropathy is of no consequence. The central canal and neural foramina are patent. C3-C4: A posterior disc osteophyte complex effaces the ventral subarachnoid space. Uncovertebral and facet arthropathy contribute to mild right neural foraminal stenosis. The left neural foramen is clear. C4-C5: A posterior disc osteophyte complex effaces the ventral subarachnoid space. Facet arthropathy is of no consequence. The neural foramina are patent. C5-C6: A posterior disc osteophyte complex abuts the ventral cord. Facet arthropathy is of no consequence. The neural foramina are patent. C6-C7: Unremarkable. C7-T1: Unremarkable. Soft tissues: Enhancing paravertebral soft tissue in the upper thoracic region is consistent with metastatic disease. There is mild nonspecific prevertebral edema in the cervical region. Brain parenchyma: The visualized brain parenchyma at the skull base is within normal limits. IMPRESSION: 1. Again seen is extensive/multifocal osseous metastatic disease as above. 2. Mild chronic compression deformities in the lower cervical and upper thoracic region as above. 3. Abnormal enhancing soft tissue within the anterior and posterior epidural space in the upper thoracic region as above is consistent with metastatic disease. See above. 4. The cervical cord is normal in morphology and signal intensity. Dictated: 12/06/2021 10:09 AM Transcribed: 12/06/2021 10:37 AM Cecilia [id number] [email or web address] Electronically signed by: Julio Cesar Mcgraw M.D. 12/06/2021 11:39 AM
[2021-12-07] MEDS: POLYETHYLENE (MIRALAX) 17 GM PACK PO PRN (17:44)
[2021-12-07] MEDS: ONDANSETRON INJ 2 MG/ML 2 ML VIAL IV PRN (22:44)
--- NOTE | 2021-12-08 00:05 | Hospitalist Progress Note ---
Date of Service December 08, 2021 Assessment & Plan (1) Lower extremity weakness: Plan BLE Weakness Urinary retention status post Malin placement Patient presented with progressive BLE weakness since 2-3 days [employer], can't stand now, no sensory loss, no loss of bowel or bladder control, denies trauma to lower extremities. 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 Admitting vitals are stable, admitting imagings [CTAP/cervical CT/lumbar CT/thoracic CT] reviewed with multiple metastasis noted. MRI cervical showed extensive/multifocal osseous metastatic disease. Abnormal enhancing soft tissue within the anterior and posterior epidural space in the upper thoracic region as above is consistent with metastatic disease. MRI lumbar showed extensive skeletal metastatic disease within the lumbar spine which has mildly progressed since MRI of November 14, 2021. Minimal epidural extension of tumor at the T11 level. MRI thoracic showed evidence of extensive epidural tumor as detailed above, corresponding to the findings on the 12/04/[address] Radiation Oncology on board Case discussed with radiation oncology that plan for CT simulation today and plan to start on radiation treatment tomorrow Neurology on board recommended to continue IV dexamethasone 6mg QID Dr. [facility] was notified about the MRI findings PT/OT eval Acute on chronic anemia: Baseline hemoglobin appears around 10-11, admitting hemoglobin of 8.2. hgb 9.1 today Serum iron within normal limits. FOBT negative. 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 He says his next chemotherapy is on ; Dr. Nolasco informed regarding the hospitalization. We will provide him updates. He is on morphine extended release 30 mg twice daily as per palliative care and Percocet every 4 hours as needed. Plan for radiation therapy today Tobacco use disorder: Current tobaco use, since age 13, 1 ppd, declined nicotine patch, counselled. DVT px; Heparin Full code. Admission and Anticipated Discharge Date Admission Date: December 04, 2021 Subjective Pt was seen and examined for follow up back pain Lying in bed with no acute distress with at bedside Lying in bed with no acute distress pt said pain is stable Review of Systems Review of Systems: All systems reviewed & are unremarkable except as noted in Subjective Physical Exam Physical Exam: General- No acute distress Head- atraumatic Eyes- PERRL, EOMI, ENT- oropharynx clear Neck- supple, no JVD Lungs- clear to auscultation Heart- regular rhythm; no murmur Abdomen- normal bowel sounds, soft, nontender Extremities- no calf tenderness, decreases motor strength in b/l LE (unable to lift her leg up ) Neuro- alert, oriented x 3; PERRL, EOMI; no facial palsy; no dysarthria Skin- warm & dry Results & Data Results & Data ([facility]) Vital Signs (Past 12 Hours) Vital Signs Temp Pulse Pulse Resp BP BP Pulse Ox 12/07/21 23:26 36.5 C 85 18 154/86 H 95 12/07/21 22:15 83 12/07/21 22:00 12/07/21 19:59 36.5 C 81 18 158/89 H 96 12/07/21 15:42 87 12/07/21 14:50 36.6 C 88 18 160/85 H 98 O2 Del Method O2 Flow Rate 12/07/21 23:26 Nasal Cannula 2 12/07/21 22:15 12/07/21 22:00 Nasal Cannula 2 12/07/21 19:59 Nasal Cannula 2 12/07/21 15:42 12/07/21 14:50 Room Air
[2021-12-08] MEDS: oxyCODONE/ACETAMINOPHEN 10-325 TAB PO PRN ×3 (00:19→14:35)
[2021-12-08] MEDS: dexAMETHasone 6 MG in SYRINGE 0 ML IV SCH ×4 (01:00→20:03)
[2021-12-08] MEDS: ONDANSETRON INJ 2 MG/ML 2 ML VIAL IV PRN ×2 (08:02→15:56)
[2021-12-08] MEDS: POLYETHYLENE (MIRALAX) 17 GM PACK PO PRN (08:02)
[2021-12-08] MEDS: MoRPHine SULFATE CR 15 MG TABCR PO SCH ×2 (08:02→20:38)
[2021-12-08] MEDS: predniSONE 10 MG TABLET PO SCH (09:45)
[2021-12-08] MEDS: LORATADINE 10 MG TAB PO SCH (09:45)
[2021-12-08] MEDS: ASPIRIN 81 MG ECTAB PO SCH (09:45)
[2021-12-08] MEDS: FAMOTIDINE 40 MG TABLET PO SCH (09:45)
[2021-12-08] MEDS: HEPARIN SOD 5,000 UNIT/0.5 ML VIAL SQ SCH ×2 (09:45→20:37)
[2021-12-08] MEDS: ROSUVASTATIN CALCIUM 20 MG TAB PO SCH (09:45)
[2021-12-08] MEDS: NICOTINE 21 MG/24 HR TDSY TD SCH (09:45)
[2021-12-08] MEDS: GABAPENTIN 300 MG CAP PO SCH ×2 (09:45→20:38)
[2021-12-08] MEDS: MOVANTIK PO SCH (09:46)
[2021-12-08] MEDS: bisacodyL 5 MG TABEC PO SCH ×2 (12:10→20:37)
[2021-12-08] MEDS: MAGNESIUM HYDROXIDE SUSP 30 ML UDC PO SCH ×2 (12:11→20:38)
--- NOTE | 2021-12-08 12:50 | Neurology Progress Note ---
Date of Service December 08, 2021 Assessment & Plan (1) Paraparesis of both lower limbs: Plan: Impression: The patient has history of metastatic prostate cancer, with extensive spinal osseous and epidural metastases and spinal canal narrowing, who presents with new onset lower extremity weakness and some new sensory deficit. He also has urinary retention. Such symptoms suggestive of myelopathy which can be compressive or metastatic. Bony and epidural metastases are common in prostate cancer, but very occasional intraluminal cord metastases. Based on current spinal MRI findings, there is some worsening of thoracic epidural tumor involvement as well as bony changes with neuroforaminal narrowing, and probable cord compression at T3 with cord edema, which is likely cause of the patient's recent worsening symptoms. The patient was seen by radiation oncology and received second radiation therapy today. No change of Plan/recommendations: Dexamethasone 6 mg every 6 hours for 3 days then decrease dosage to 4 mg BID. Radiation therapy to thoracic spine (2) Prostate cancer metastatic to bone: Plan: Impression: The patient was diagnosed with prostate cancer in August 2020.He has been on chemotherapy with Firmagon, Xfevea plus apalutamide and received radiation therapy to the lumbar, thoracic and pelvic region. The recent spinal MRI showed some extension of thoracic epidural involvement as well as spinal stenosis and T3 level cord edema. Plan/recommendations: As seen above. Admission and Anticipated Discharge Date Admission Date: December 04, 2021 Subjective The patient received second radiotherapy this morning. No change of his neurological deficit. Denies pain. Review of Systems Review of Systems: All systems reviewed & are unremarkable except as noted in HPI & below Physical Exam Physical Exam: General Examination: Constitutional: Well developed person in no acute distress. HEENT: Normal exam with inspection. CV: Hearth rhythm is regular. Neck: Supple, no carotid bruits. Lungs: Non-labored and comfortable breathing. Abdomen: Soft, non-tender, non-distended. Skin: No rash or ecchymosis. Extremities: No edema or cyanosis NEUROLOGICAL EXAMINATION: Mental Status: Alert and oriented to place, person and time. Cranial Nerves: II-XII are intact. No nystagmus. Funduscopy: Normal looking optic discs. Motor: 5/5 in upper extremities and 3+/5 in hip flexors and 4-/5 in other muscles of lower extremities without asymmetry except left ankle dorsiflexors 3+/5 and right ankle plantar flexors are 4+/5. Tone: Normal without spasticity or rigidity. Sensory: There is no clear or sensory leveling during physical examination. However, the patient describes bandlike altered feeling between T5-T8 levels. Alirio benton also has decreased sensation on left lower extremity below knee, decreased sensation of right proximal thigh. He also describes decreased sensation in genitalia and groin region. DTRs: 2+ in upper extremities, 3 - and knees, and 1+ in ankles symmetrically. There is no Babinski. Coordination: No dysmetria with FTN testing. Speech: Fluent. Comprehension is intact. Gait: The patient cannot walk. With help, he can stand up with walker. Musculoskeletal: Normal muscle bulk, no atrophy. Results & Data ([facility]) Vital Signs (Past 12 Hours) Vital Signs Temp Pulse Pulse Resp BP Pulse Ox O2 Del Method 12/08/21 11:14 36.5 C 85 18 149/80 H 100 12/08/21 07:22 36.5 C 98 H 18 146/77 H 99 Nasal Cannula 12/08/21 07:21 86 12/08/21 04:00 36.6 C 86 18 151/85 H 94 Nasal Cannula O2 Flow Rate 12/08/21 11:14 12/08/21 07:22 2 12/08/21 07:21 12/08/21 04:00 2 Diagnostic Findings Abdomen/Pelvis CT 12/04/21 08:[address] WITH IV CONTRAST CT DOSE: HISTORY: Metastatic disease bilateral lower extremity weakness, back pain, retenti TECHNIQUE: Multiaxial CT images of the abdomen and pelvis were performed following the use of intravenous contrast. A dose lowering technique was util ized adhering to the principles of ALARA. COMPARISON STUDY: Abdomen and pelvis CT 12/02/2021. FINDINGS: There are trace bilateral pleural effusions which are new from the prior study. Patchy bilateral lower lobe densities have also slightly progressed. There is emphysema again noted at the lung bases. Small nodular densities along the right minor fissure remain stable. No pneumoperitoneum. No pneumatosis. Multifocal osteoblastic metastatic disease is similar to the prior CT examination. No acute fractures identified. There again noted a few scattered hypodense lesions within the liver. These are better appreciated on this examination likely due to the time of contrast. There are 2 tandem lesions identified. These likely represent metastatic disease. There are few punctate gallstones. No gallbladder wall thickening. The spleen and right adrenal gland are unremarkable. A 2.1 cm left adrenal gland nodules again noted. There are few prominent left para-aortic lymph nodes, unchanged. These are concerning for metastatic disease. The kidneys enhance normally. No hydronephrosis. Bilateral common iliac artery stents are patent. No pelvic lymphadenopathy. There is a Malin catheter within the bladder. There is mild bladder wall thickening. Fluid- filled nondilated loops of large and small bowel seen throughout the abdomen. No evidence for a bowel obstruction. IMPRESSION: 1. Redemonstration of the metastatic disease within the abdomen and pelvis as described above. This is similar to the prior study. 2. Fluid-filled nondilated loops of large and small bowel. This can be seen in the setting of a gastroenteritis/diarrheal illness. No evidence for bowel obstruction. 3. Cholelithiasis. 4. Patchy bibasilar densities and trace bilateral pleural effusions have progressed. This could represent atelectasis or a pneumonia. 5. Bladder wall thickening. This may represent a cystitis. Recommend correlation with urinalysis. ACT 112: Negative or not required by law. Electronically signed by: Francisco Javier Navarrete M.D. 12/04/2021 12:[address] 12/04/21 08:58 CT cervical spine wo con CLINICAL HISTORY: 56 years-old Male with metstatic disease BLE weakness, back pain, retenti. Acute neck pain with upper extremity weakness in a patient with skeletal metastasis COMPARISON: CT thoracic spine of same day, MRI thoracic spine 11/14/2021 TECHNIQUE: Multiple axial CT images of the cervical spine were obtained without contrast. A dose lowering technique was utilized adhering to the principles of ALARA. FINDINGS: Multifocal osteoblastic skeletal metastasis redemonstrated. Mild superior endplate compression again noted at C7, T1 and T2 which is similar to the prior study. There is mild multilevel intervertebral disc space narrowing and spondylitic spurring with [id number] facet arthrosis. No acute fracture, subluxation or endplate erosion identified. No pneumothorax. Emphysematous changes of the lung apices without pneumothorax. There is no prevertebral edema of the cervical spine. There is however mild paravertebral edema of the upper thoracic spine which was also present on the comparison MRI. No high-grade central canal or neural foraminal narrowing of the cervical spine identified. IMPRESSION: 1. Multifocal osteoblastic skeletal metastasis redemonstrated. No acute pathologic fracture identified. 2. Unchanged appearance of the mild C7, T1 and T2 compression deformities. 3. Upper thoracic paravertebral edema is similar to the 11/14/2021 MRI exam. 4. Pulmonary emphysema. ACT 112: Negative or not required by law. The above report was generated using voice recognition software. It may contain grammatical, syntax or spelling errors. Electronically signed by: Rick Moreno M.D. 12/04/2021 11:[address] 12/04/21 08:58 CT lumbar spine wo con CLINICAL HISTORY: metstatic disease BLE weakness, back pain, retenti TECHNIQUE: Multidetector row helical CT of the lumbar spine was performed without administration of intravenous contrast. Coronal and sagittal reformations were obtained. Automated dose lowering techniques and/or adjustment according to patient size were utilized for this exam. Comparison: Comparison is made to CT abdomen pelvis 07/07/2021 FINDINGS: For counting purposes, the last complete intervertebral disc space is considered L5-S1.Numerous sclerotic foci are seen throughout the skeleton. These are stable to minimally enlarged from prior CT. For example, a 19 mm focus of the superior aspect of the L1 vertebral body previously measured 18 mm. Mild degenerative changes are seen most prominent at L3-L4. Please see CT abdomen pelvis for detailed findings of the soft tissues. IMPRESSION: Numerous sclerotic foci within the skeleton are stable to minimally enlarged from prior exam compatible with metastatic disease. No evidence of acute fracture. ACT 112: Negative or not required by law. Electronically signed by: Gonzalez Vallejo M.D. 12/04/2021 11:[address] 12/04/21 08:[address] DOSE: 2333.11 mGy.cm HISTORY: metastatic disease with bilateral lower extremity weakness, back pain, retention TECHNIQUE: Multiaxial CT images of the thoracic spine were performed and reformatted in the sagittal and coronal plane without the use of contrast. A dose lowering technique was utilized adhering to the principles of ALARA. COMPARISON: Outside hospital thoracic spine MRI 11/14/2021. FINDINGS: Redemonstration of the extensive multifocal osteoblastic metastatic disease seen throughout the thoracic spine. This is similar to the prior outside hospital thoracic spine MRI. Mild super endplate compression at C7, T1, T2, and T3 is similar to the prior study. This is likely chronic. No acute fractures identified within the thoracic spine. Paravertebral edema and soft tissue thickening from the T1-T8 level is again noted and is consistent with metastatic disease. This is best seen at the T5-T6 levels which demonstrates up to 8 mm of prevertebral soft tissue thickening. There is associated epidural soft tissue from the T3-T8 levels also consistent with metastatic disease. This epidural soft tissue results in [id number] central canal narrowing within the upper to mid thoracic spine most pronounced at the T5-T6 level. The transverse diameter of the thecal sac at this level is approximately 7 mm this is also similar to the prior study. There are trace bilateral pleural effusions. Emphysema. Patchy densities within the lung bases posteriorly may represent atelectasis. A pneumonia could also have a similar appearance. IMPRESSION: 1. Redemonstration of extensive multifocal osteoblastic metastatic disease seen throughout the thoracic spine and visualized ribs. This is similar to the prior outside hospital MRI. 2. There is also abnormal paravertebral and epidural soft tissue from the T1-T8 levels consistent with metastatic disease. The epidural component is most pronounced at the T5-T6 level which results in moderate central canal narrowing. This is also similar to the prior outside hospital MRI. 3. Trace bilateral pleural effusions. 4. Mild superior endplate compression deformities at C7, T1, T2, T3 are also similar to the prior study. No acute fractures identified. 5. Additional findings as described above. ACT 112: Negative or not required by law. Electronically signed by: Francisco Javier Navarrete M.D. 12/04/2021 12:15 PM Thoracic Spine MRI 12/05/21 16:51 MRI OF THE THORACIC SPINE COMBO CLINICAL HISTORY: Prostate cancer. Myelopathy. COMPARISON STUDY: CT of the thoracic spine dated 12/04/2021. TECHNIQUE: MRI of the thoracic spine is performed utilizing various T1 and T2- weighted sequences in the axial and sagittal planes. Contrast-enhanced sequences are acquired following the IV administration of 8.5 cc of Gadavist. FINDINGS: Again seen is extensive/multifocal osseous metastatic disease. This is seen throughout the thoracic spine including the posterior elements. There are also bilateral rib lesions. There are chronic compression deformities of C7, T1, T2, and T3. Disc desiccation and loss of height is seen throughout the thoracic region. There is extensive abnormal enhancing paravertebral soft tissue seen extending from T4 to T7 consistent with tumor. Additionally, there is abnormal enhancing epidural soft tissue in the upper thoracic region. This is seen posteriorly from C7 to T10, and anteriorly from T1 through T8. This is con sistent with epidural tumor. This is greatest at T3-T6, with effacement of the thoracic spinal cord. This also involves several of the bilateral neural foramina at these levels, greatest from T3-T4 through T5-T6. The thoracic cord is normal in morphology. There is mild signal heterogeneity within the thoracic cord at the level of T3 which may represent mild edema. No abnormal cord enhancement is identified. The conus medullaris terminates at the level of L1. There are small pleural effusions. IMPRESSION: 1. Again seen is evidence of extensive osseous metastatic disease. 2. There is paravertebral tumor in the upper thoracic region as above. 3. There is evidence of extensive epidural tumor as detailed above, corresponding to the findings on the 12/04/[address] 4. Heterogeneous signal is noted within the thoracic cord at the level of T3 which may represent mild edema. 5. Chronic compression deformities as above. There is no MRI evidence of acute pathological fracture. Dictated: 12/06/2021 10:53 AM Transcribed: 12/06/2021 11:46 AM Cecilia [id number] [facility] Electronically signed by: Julio Cesar Mcgraw M.D. 12/06/2021 11:51 AM Lumbar Spine MRI 12/05/21 16:52 MRI OF THE LUMBAR SPINE WITH AND WITHOUT CONTRAST CLINICAL HISTORY: new onset leg weakness, prostate cancer COMPARISON STUDY: Lumbar spine CT December 04, 2021. Lumbar spine MRI November 14, 2021. TECHNIQUE: Utilizing a 1.5 Arely magnet and dedicated coil, multiplanar, multiecho imaging of the lumbar spine was performed before and after uneventful IV administration of 8.5 mL of Gadavist. FINDINGS: For purposes of numbering on this exam, the L5-S1 disc space is assigned to axial image 19 of 30 of the lower axial sequences. Alignment of the lumbar spine is anatomic. Vertebral body heights are maintained. The conus terminates at the mid L1 level. There is no mass or abnormal enhancement within the lumbar canal. Note is made of a small nodular focus of enhancement within the anterior epidural space at the T11 level. This represents epidural extension of tumor. Extensive multifocal marrow replacement within the lumbar spine, sacrum and coccyx is noted. This has slightly progressed since MRI of November 14, 2021. No pathologic fracture within the lumbar spine. The central canal and neural foramen are patent. Mild multilevel degenerative changes are present. A few prominent left periaortic lymph nodes measure up to 1.3 x 0.9 cm. IMPRESSION: Extensive skeletal metastatic disease within the lumbar spine which has mildly progressed since MRI of November 14, 2021. Minimal epidural extension of tumor at the T11 level. No pathologic fracture within the lumbar spine. ACT 112: Negative or not required by law. Electronically signed by: Onel Poe M.D. 12/06/2021 9:13 AM Cervical Spine MRI 12/05/21 16:53 MRI OF THE CERVICAL SPINE COMBO CLINICAL HISTORY: Prostate cancer. Lower extremity weakness. COMPARISON STUDY: CT of the cervical spine dated 12/04/2021. TECHNIQUE: MRI of the cervical spine is performed utilizing various T1 and T2- weighted sequences in the axial and sagittal planes. Contrast enhanced sequences were acquired following the IV administration of 8.5 cc of Gadavist. The examination is compromised by motion artifact. FINDINGS: Cervical spine: Again seen is evidence of extensive multifocal osseous metastatic disease throughout the cervical spine. There are mild compression deformities of C7, T1, T2, and T3. Vertebral body height is well maintained throughout the cervical spine. Alignment is preserved. The atlantodental articulation is maintained. The spinous processes appear intact. Intervertebral discs: Disc desiccation and mild loss of height is seen throughout the cervical spine. Central canal: The cervical cord is normal in morphology and signal intensity. No abnormal postcontrast enhancement is identified. There is abnormal enhancing soft tissue within the anterior and posterior epidural space in the upper thoracic spine. This is best seen on the sagittal postcontrast images, and extends posteriorly from C7 into the thoracic region and anteriorly from T1 into the thoracic region. This is consistent with epidural tumor. This effaces the thecal sac in the upper thoracic region. C2-C3: Facet arthropathy is of no consequence. The central canal and neural foramina are patent. C3-C4: A posterior disc osteophyte complex effaces the ventral subarachnoid space. Uncovertebral and facet arthropathy contribute to mild right neural foraminal stenosis. The left neural foramen is clear. C4-C5: A posterior disc osteophyte complex effaces the ventral subarachnoid space. Facet arthropathy is of no consequence. The neural foramina are patent. C5-C6: A posterior disc osteophyte complex abuts the ventral cord. Facet arthropathy is of no consequence. The neural foramina are patent. C6-C7: Unremarkable. C7-T1: Unremarkable. Soft tissues: Enhancing paravertebral soft tissue in the upper thoracic region is consistent with metastatic disease. There is mild nonspecific prevertebral edema in the cervical region. Brain parenchyma: The visualized brain parenchyma at the skull base is within normal limits. IMPRESSION: 1. Again seen is extensive/multifocal osseous metastatic disease as above. 2. Mild chronic compression deformities in the lower cervical and upper thoracic region as above. 3. Abnormal enhancing soft tissue within the anterior and posterior epidural space in the upper thoracic region as above is consistent with metastatic disease. See above. 4. The cervical cord is normal in morphology and signal intensity. Dictated: 12/06/2021 10:09 AM Transcribed: 12/06/2021 10:37 AM Cecilia [id number] [facility] Electronically signed by: Julio Cesar Mcgraw M.D. 12/06/2021 11:39 AM
--- NOTE | 2021-12-08 13:03 | XRay Report ---
KUB HISTORY: Acute generalized abdominal pain with distention abdominal distension COMPARISON: CT abdomen and pelvis 12/04/2021 FINDINGS: Gaseous distention of the large bowel has progressed from the prior study now measuring up to approximately 10 cm. Air-filled mildly prominent loops of small bowel also noted. There is no orga nomegaly. No renal calculi. No ureteral calculi. No pneumoperitoneum or pneumatosis. No acute fractu re identified. Multifocal sclerotic skeletal metastasis. By lateral iliac stent grafts. IMPRESSION: 1. Air-filled loops of large and small bowel with progressive gaseous distention of the colon compare d to the 12/04/2021 study. Findings favor ileus with distal obstruction considered less likely. Follo w-up recommended. 2. Multifocal osteoblastic skeletal metastasis redemonstrated. ACT 112: Negative or not required by law. The above report was generated using voice recognition software. It may contain grammatical, syntax o r spelling errors. Electronically signed by: Rick Moreno M.D. 12/08/2021 1:01 PM
[2021-12-08] MEDS ORDERED: SOD PHOSPHATE/SOD BIPHOSPHATE ENEMA 132 ML BTL PR STA (16:31)
[2021-12-08] MEDS ORDERED: oxyCODONE/ACETAMINOPHEN 10-325 TAB PO PRN ×2 (16:47→16:49)
[2021-12-08] MEDS ORDERED: POLYETHYLENE (MIRALAX) 17 GM PACK PO SCH (21:00)
--- NOTE | 2021-12-08 22:41 | Hospitalist Progress Note ---
Date of Service December 08, 2021 Assessment & Plan (1) Lower extremity weakness: Plan BLE Weakness Urinary retention status post Malin placement Patient presented with progressive BLE weakness since 2-3 days [employer], can't stand now, no sensory loss, no loss of bowel or bladder control, denies trauma to lower extremities. 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 Admitting vitals are stable, admitting imagings [CTAP/cervical CT/lumbar CT/thoracic CT] reviewed with multiple metastasis noted. MRI cervical showed extensive/multifocal osseous metastatic disease. Abnormal enhancing soft tissue within the anterior and posterior epidural space in the upper thoracic region as above is consistent with metastatic disease. MRI lumbar showed extensive skeletal metastatic disease within the lumbar spine which has mildly progressed since MRI of November 14, 2021. Minimal epidural extension of tumor at the T11 level. MRI thoracic showed evidence of extensive epidural tumor as detailed above, corresponding to the findings on the 12/04/[address] Radiation Oncology on board Case discussed with radiation oncology that plan for CT simulation today and plan to start on radiation treatment tomorrow Neurology on board recommended to continue IV dexamethasone 6mg QID Dr. [facility] was notified about the MRI findings PT/OT eval Constipation Ileus KUB showed air-filled loops of large and small bowel with progressive gaseous distention of the colon compared to the 12/04/2021 study Continue to have no BM Continue stool softener and laxative Diet change to clear liquid Will check KUB in am Acute on chronic anemia: Baseline hemoglobin appears around 10-11, admitting hemoglobin of 8.2. hgb 9.1 today Serum iron within normal limits. FOBT negative. 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 He says his next chemotherapy is on ; Dr. Nolasco informed regarding the hospitalization. We will provide him updates. He is on morphine extended release 30 mg twice daily as per palliative care and Percocet every 4 hours as needed. Plan for radiation therapy today Tobacco use disorder: declined nicotine patch, counselled. DVT px; Heparin Full code. Admission and Anticipated Discharge Date Admission Date: December 04, 2021 Subjective Pt was seen and examined for follow up back pain, constipation and abdominal discomfort Lying in bed with no acute distress with at bedside Pt said that he feels bloated He vomited early. still did not have any BM He said that his back pain improves Denies any chest pain, palpitation, dizziness and SOB Review of Systems Review of Systems: All systems reviewed & are unremarkable except as noted in Subjective Physical Exam Physical Exam: General- No acute distress Head- atraumatic Eyes- PERRL, EOMI, ENT- oropharynx clear Neck- supple, no JVD Lungs- clear to auscultation Heart- regular rhythm; no murmur Abdomen- normal bowel sounds, soft, nontender Extremities- no calf tenderness, decreases motor strength in b/l LE (unable to lift her leg up ) Neuro- alert, oriented x 3; PERRL, EOMI; no facial palsy; no dysarthria Skin- warm & dry Results & Data Results & Data ([facility]) Vital Signs (Past 12 Hours) Vital Signs Temp Pulse Pulse Resp BP BP Pulse Ox 12/08/21 19:00 36.7 C 90 20 148/75 H 92 12/08/21 18:13 109 H 12/08/21 16:22 12/08/21 16:06 36.8 C 96 H 20 133/78 94 12/08/21 11:14 36.5 C 85 18 149/80 H 100 O2 Del Method O2 Flow Rate 12/08/21 19:00 Nasal Cannula 12/08/21 18:13 12/08/21 16:22 Nasal Cannula 2 12/08/21 16:06 2 12/08/21 11:14
[2021-12-08] MEDS ORDERED: LACTULOSE SYRUP 30 GM/45 ML UDP PO STA (23:25)
[2021-12-08] MEDS ORDERED: DOCUSATE SODIUM/SENNA 50/8.6MG TAB PO SCH (23:30)
[2021-12-09] MEDS: dexAMETHasone 6 MG in SYRINGE 0 ML IV SCH ×4 (01:07→20:17)
[2021-12-09] MEDS ORDERED: bisacodyL 10 MG SUPP PR STA (01:13)
[2021-12-09] MEDS: POLYETHYLENE (MIRALAX) 17 GM PACK PO SCH ×4 (01:31→12:26)
[2021-12-09 01:56] LABS: Hematocrit (blood only) 30.8 % (40.1-51.0); Hemoglobin 10.1 g/dl (14.0-18.0); Mean Corpuscular Hemoglobin 27.6 pg (25.0-34.0); Mean Corpuscular Hgb Conc 32.8 g/dL (32.0-36.0); Mean Corpuscular Volume 84.2 fL (80.0-100.0); Mean Platelet Volume 9.3 fL (9.4-12.4); Nucleated RBC # (auto) 0.06 K/uL (0-0); Nucleated RBC % (auto) 0.7 %; Platelet Count 154 K/uL (130-400); RDW Coefficient of Variation 17.4 % (11.5-14.5); RDW Standard Deviation 52.5 fL (36.4-46.3); Red Blood Count 3.66 M/uL (4.63-6.08); White Blood Count 8.99 K/ul (4.8-10.8)
[2021-12-09 02:19] LABS: BUN Creatinine Ratio 43.5 (10-20); Calcium 8.1 mg/dl (8.5-10.1); Creatinine Clr Calc Pharmacy 118.6 ml/min; Est GFR (African American) 127.6 ml/min; Est GFR (Non-African American) 110.1 ml/min; Magnesium 3.1 mg/dl (1.7-2.4)
[2021-12-09] MEDS ORDERED: SODIUM CHLORIDE 0.9% 1000ML 1,000 ML IV ONE (02:57)
[2021-12-09 03:03] LABS: Basophils # (auto) 0.03 K/uL (0-0.2); Basophils % (auto) 0.3 %; Immature Granulocytes # (auto) 0.53 K/uL (0.00-0.02); Immature Granulocytes % (auto) 5.9 %; Lymphocytes # (auto) 0.29 K/uL (1.2-3.4); Lymphocytes % (auto) 3.2 %; Monocytes # (auto) 0.63 K/uL (0.24-0.82); Neutrophils # (auto) 7.51 K/uL (1.4-6.5); Neutrophils % (auto) 83.6 %; Tear Drop Cells 1+
[2021-12-09] MEDS: ONDANSETRON INJ 2 MG/ML 2 ML VIAL IV PRN (04:22)
[2021-12-09] MEDS: ALUMINUM/MAGNESIUM SUSP 30 ML UDC PO PRN (04:23)
[2021-12-09] MEDS ORDERED: LACTULOSE SYRUP 30 GM/45 ML UDP PO STA (05:07)
[2021-12-09] MEDS ORDERED: LORazepam 0.5 MG TAB PO STA (06:23)
[2021-12-09] MEDS ORDERED: POLYETHYLENE (MIRALAX) 17 GM PACK PO SCH (09:00)
[2021-12-09] MEDS: DOCUSATE SODIUM/SENNA 50/8.6MG TAB PO SCH ×2 (09:11→20:20)
[2021-12-09] MEDS: FAMOTIDINE 40 MG TABLET PO SCH (09:11)
[2021-12-09] MEDS: GABAPENTIN 300 MG CAP PO SCH ×2 (09:11→20:18)
[2021-12-09] MEDS: ASPIRIN 81 MG ECTAB PO SCH (09:11)
[2021-12-09] MEDS: MoRPHine SULFATE CR 15 MG TABCR PO SCH ×2 (09:12→20:20)
[2021-12-09] MEDS: LORATADINE 10 MG TAB PO SCH (09:12)
[2021-12-09] MEDS: HEPARIN SOD 5,000 UNIT/0.5 ML VIAL SQ SCH ×2 (09:12→20:19)
[2021-12-09] MEDS: predniSONE 10 MG TABLET PO SCH (09:13)
[2021-12-09] MEDS: MOVANTIK PO SCH (09:13)
[2021-12-09] MEDS: ROSUVASTATIN CALCIUM 20 MG TAB PO SCH (09:14)
[2021-12-09] MEDS: NICOTINE 21 MG/24 HR TDSY TD SCH (12:25)
[2021-12-09] MEDS: bisacodyL 5 MG TABEC PO SCH ×2 (12:27→20:26)
--- NOTE | 2021-12-09 14:54 | XRay Report ---
XR KUB/Abdomen 1 view CLINICAL HISTORY: f/u ileus TECHNIQUE: 1 view of the abdomen was obtained. Comparison: Comparison is made to abdomen radiograph 12/08/2021 FINDINGS: Lung bases are unremarkable. Degenerative changes are seen in the visualized skeleton. Numerous blast ic foci are again noted in the skeleton. Numerous gas distended loops of bowel are again seen, overal l similar in extent to prior exam. A moderate amount of stool is noted within the large bowel. Bilate ral iliac stent grafts noted. IMPRESSION: 1. Redemonstration of gas distended loops of bowel compatible with ileus. 2. Multifocal skeletal metastasis again noted. ACT 112: Negative or not required by law. Electronically signed by: Gonzalez Vallejo M.D. 12/09/2021 2:53 PM
--- NOTE | 2021-12-09 17:11 | Hospitalist Progress Note ---
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 Admitting vitals are stable, admitting imagings [CTAP/cervical CT/lumbar CT/thoracic CT] reviewed with multiple metastasis noted. MRI cervical showed extensive/multifocal osseous metastatic disease. Abnormal enhancing soft tissue within the anterior and posterior epidural space in the upper thoracic region as above is consistent with metastatic disease. MRI lumbar showed extensive skeletal metastatic disease within the lumbar spine which has mildly progressed since MRI of November 14, 2021. Minimal epidural extension of tumor at the T11 level. MRI thoracic showed evidence of extensive epidural tumor as detailed above, corresponding to the findings on the 12/04/[address] Radiation Oncology on board Case discussed with radiation oncology that plan for CT simulation today and plan to start on radiation treatment tomorrow Neurology on board recommended IV dexamethasone 6mg QID x 3days then decrease to 4mg BID (start 12/10) Dr. Howe Oncology was notified about the MRI findings PT/OT eval Constipation Ileus KUB showed Redemonstration of gas distended loops of bowel compatible with ileus Continue to have no BM Continue stool softener and laxative Diet advanced to full liquid Will check KUB in am Acute on chronic anemia: Baseline hemoglobin appears around 10-11, admitting hemoglobin of 8.2. hgb 9.1 today Serum iron within normal limits. FOBT negative. 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 He says his next chemotherapy is on ; Dr. Nolasco informed regarding the hospitalization. We will provide him updates. He is on morphine extended release 30 mg twice daily as per palliative care and Percocet every 4 hours as needed. Plan for radiation therapy today Tobacco use disorder: declined nicotine patch, counselled. DVT px; Heparin Full code. Admission and Anticipated Discharge Date Admission Date: December 04, 2021 Subjective Pt was seen and examined for follow up back pain, constipation and abdominal discomfort Lying in bed with no acute distress with at bedside Pt feels a little better He had a BM last night and a more couple bowel movement today Denies any chest pain, palpitation, dizziness and SOB Review of Systems Review of Systems: All systems reviewed & are unremarkable except as noted in Subjective Physical Exam Physical Exam: General- No acute distress Head- atraumatic Eyes- PERRL, EOMI, ENT- oropharynx clear Neck- supple, no JVD Lungs- clear to auscultation Heart- regular rhythm; no murmur Abdomen- normal bowel sounds, soft, nontender Extremities- no calf tenderness, decreases motor strength in b/l LE (unable to lift her leg up ) Neuro- alert, oriented x 3; PERRL, EOMI; no facial palsy; no dysarthria Skin- warm & dry Results & Data Results & Data ([facility]) Vital Signs (Past 12 Hours) Vital Signs Temp Pulse Pulse Resp BP Pulse Ox O2 Del Method 12/09/21 15:52 36.6 C 90 20 170/85 H 90 Nasal Cannula 12/09/21 09:00 Nasal Cannula 12/09/21 12:15 36.9 C 91 H 18 162/83 H 96 Nasal Cannula 12/09/21 07:47 86 12/09/21 06:42 36.4 C L 93 H 20 148/84 H 92 Nasal Cannula O2 Flow Rate 12/09/21 15:52 2 12/09/21 09:00 2 12/09/21 12:15 2 12/09/21 07:47 12/09/21 06:42 2
[2021-12-10] MEDS: DOCUSATE SODIUM/SENNA 50/8.6MG TAB PO SCH ×2 (08:36→20:32)
[2021-12-10] MEDS: ASPIRIN 81 MG ECTAB PO SCH (08:36)
[2021-12-10] MEDS: dexAMETHasone 4 MG in SYRINGE 0 ML IV SCH ×2 (08:36→20:19)
[2021-12-10] MEDS: FAMOTIDINE 40 MG TABLET PO SCH (08:36)
[2021-12-10] MEDS: GABAPENTIN 300 MG CAP PO SCH ×2 (08:37→20:20)
[2021-12-10] MEDS: HEPARIN SOD 5,000 UNIT/0.5 ML VIAL SQ SCH ×2 (08:37→20:19)
[2021-12-10] MEDS: MoRPHine SULFATE CR 15 MG TABCR PO SCH ×2 (08:38→20:32)
[2021-12-10] MEDS: ROSUVASTATIN CALCIUM 20 MG TAB PO SCH (08:38)
[2021-12-10] MEDS: NICOTINE 21 MG/24 HR TDSY TD SCH (08:38)
[2021-12-10] MEDS: LORATADINE 10 MG TAB PO SCH (08:38)
[2021-12-10] MEDS: MOVANTIK PO SCH (08:39)
[2021-12-10] MEDS ORDERED: METHYLNALTREXONE BROMIDE 12 MG/0.6 ML VIAL SQ ONE (10:45)
[2021-12-10] MEDS: bisacodyL 5 MG TABEC PO SCH ×2 (11:54→22:43)
--- NOTE | 2021-12-10 23:49 | Hospitalist Progress Note ---
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 Admitting vitals are stable, admitting imagings [CTAP/cervical CT/lumbar CT/thoracic CT] reviewed with multiple metastasis noted. MRI cervical showed extensive/multifocal osseous metastatic disease. Abnormal enhancing soft tissue within the anterior and posterior epidural space in the upper thoracic region as above is consistent with metastatic disease. MRI lumbar showed extensive skeletal metastatic disease within the lumbar spine which has mildly progressed since MRI of November 14, 2021. Minimal epidural extension of tumor at the T11 level. MRI thoracic showed evidence of extensive epidural tumor as detailed above, corresponding to the findings on the 12/04/[address] Radiation Oncology on board Case discussed with radiation oncology that plan for CT simulation today and plan to start on radiation treatment tomorrow Neurology on board recommended IV dexamethasone 6mg QID x 3days then decrease to 4mg BID (start 12/10) Dexamethasone taper to 4mg BID Dr. Howe Oncology was notified about the MRI findings PT/OT eval Constipation Ileus KUB showed Redemonstration of gas distended loops of bowel compatible with ileus Pt had 4 BM yesterday Continue stool softener and laxative Continue full liquid diet Relistor x1 given today Will check KUB in am Acute on chronic anemia: Baseline hemoglobin appears around 10-11, admitting hemoglobin of 8.2. hgb 9.1 today Serum iron within normal limits. FOBT negative. 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 He says his next chemotherapy is on ; Dr. Nolasco informed regarding the hospitalization. We will provide him updates. He is on morphine extended release 30 mg twice daily as per palliative care and Percocet every 4 hours as needed. Plan for radiation therapy today Tobacco use disorder: declined nicotine patch, counselled. DVT px; Heparin Full code. Admission and Anticipated Discharge Date Admission Date: December 04, 2021 Subjective Pt was seen and examined for follow up back pain, constipation and abdominal discomfort Sitting in chair with no acute distress with at bedside Pt said that he feels alittle better today He had 4 bowel movement yesterday Denies any chest pain, palpitation, dizziness and SOB Review of Systems Review of Systems: All systems reviewed & are unremarkable except as noted in Subjective Physical Exam Physical Exam: General- No acute distress Head- atraumatic Eyes- PERRL, EOMI, ENT- oropharynx clear Neck- supple, no JVD Lungs- clear to auscultation Heart- regular rhythm; no murmur Abdomen- normal bowel sounds, soft, nontender Extremities- no calf tenderness, decreases motor strength in b/l LE (unable to lift her leg up ) Neuro- alert, oriented x 3; PERRL, EOMI; no facial palsy; no dysarthria Skin- warm & dry Results & Data Results & Data ([facility]) Vital Signs (Past 12 Hours) Vital Signs Temp Pulse Pulse Resp BP Pulse Ox O2 Del Method 12/10/21 23:10 36.8 C 95 H 18 146/80 H 92 Nasal Cannula 12/10/21 18:45 36.5 C 89 20 163/73 H 96 Nasal Cannula 12/10/21 16:00 86 12/10/21 14:42 36.4 C L 82 20 163/82 H 94 Nasal Cannula O2 Flow Rate 12/10/21 23:10 2 12/10/21 18:45 2 12/10/21 16:00 12/10/21 14:42 2
[2021-12-11 07:46] LABS: BUN Creatinine Ratio 42.9 (10-20); Calcium 8.3 mg/dl (8.5-10.1); Creatinine Clr Calc Pharmacy 150.1 ml/min; Est GFR (African American) 140.6 ml/min; Est GFR (Non-African American) 121.3 ml/min; Magnesium 2.3 mg/dl (1.7-2.4)
[2021-12-11] MEDS: bisacodyL 5 MG TABEC PO SCH ×2 (08:21→22:37)
[2021-12-11] MEDS: MoRPHine SULFATE CR 15 MG TABCR PO SCH ×2 (08:21→20:16)
[2021-12-11] MEDS: ASPIRIN 81 MG ECTAB PO SCH (08:22)
[2021-12-11] MEDS: FAMOTIDINE 40 MG TABLET PO SCH (08:22)
[2021-12-11] MEDS: LORATADINE 10 MG TAB PO SCH (08:22)
[2021-12-11] MEDS: MOVANTIK PO SCH (08:23)
[2021-12-11] MEDS: GABAPENTIN 300 MG CAP PO SCH ×2 (08:23→20:18)
[2021-12-11] MEDS: ROSUVASTATIN CALCIUM 20 MG TAB PO SCH (08:23)
[2021-12-11] MEDS: dexAMETHasone 4 MG in SYRINGE 0 ML IV SCH ×2 (08:24→20:17)
[2021-12-11] MEDS: NICOTINE 21 MG/24 HR TDSY TD SCH (08:24)
[2021-12-11] MEDS: HEPARIN SOD 5,000 UNIT/0.5 ML VIAL SQ SCH ×2 (08:26→20:16)
[2021-12-11] MEDS: DOCUSATE SODIUM/SENNA 50/8.6MG TAB PO SCH ×2 (08:30→20:17)
--- NOTE | 2021-12-11 11:12 | XRay Report ---
KUB HISTORY: Follow up study in a patient with generalized abdominal pain f/u COMPARISON: KUB 12/09/2021, 12/08/2021. FINDINGS: Gaseous distention of the large bowel redemonstrated measuring up to approximately 12 cm. A ir-filled loops of small bowel are also noted. No renal calculi. No ureteral calculi. No pneumoperit oneum or pneumatosis. Iliac stents redemonstrated. Multifocal osteoblastic skeletal metastasis. IMPRESSION: 1. Air-filled loops of large and small bowel are redemonstrated and appear similar to the comparison studies. Findings are again suggestive of ileus. 2. Multifocal osteoblastic skeletal metastasis redemonstrated. ACT 112: Negative or not required by law. The above report was generated using voice recognition software. It may contain grammatical, syntax o r spelling errors. Electronically signed by: Rick Moreno M.D. 12/11/2021 11:10 AM
[2021-12-11] MEDS ORDERED: SIMETHICONE 80 MG CHEW PO PRN (11:35)
--- NOTE | 2021-12-11 12:26 | Gastrointestinal Consultation ---
Date of Consultation December 11, 2021 Supervising Physician Co-Signing Physician Notes Likely narcotic induced ileus/constipation from recent narcotics/slow transit due to meds/lack of movement. Would try a conventional colon bowel prep first with the additional of miralax to his current bowel regimen- would start that today into tomorrow. Could also consider the addition of relistor however would try a bowel prep first given he's on movantik already. Would also try extra doses of milk of magnesia x 1-2 today. History of Present Illness Reason for Consultation: Ileus and constipation Requesting Physician: Dr. Law Attending Physician: Kushal Law MD History of Present Illness 56 yo male with metastatic prostate cancer (diagnosed in summer) on chemo/radiation, admitted on 12/11 with lower leg weakness. He has a history of being on opiates (morphine 30 mg po bid). He has been in the hospital for the last week, primarily bed bound he states. He has been on a bowel regimen of dulcolac 5 mg po bid, milk of magnesia, senna, movantik. He is drinking liquids as I see him this afternoon. He states he needs cleared out. He is not moving out of bed at all though a walker is near his bedside. Reports he thinks he passed gas. Allergies Allergy/AdvReac Type Severity Reaction Status Date / Time No Known Allergies Allergy Unknown Verified 10/23/21 10:33 Home Medications Medication Instructions Recorded Confirmed Type coenzyme Q10 100 mg capsule 200 mg PO DAILY 07/20/21 12/04/21 History famotidine 40 mg tablet (Pepcid) 40 mg PO DAILY 07/20/21 12/04/21 History loratadine 10 mg tablet 10 mg PO DAILY 07/20/21 12/04/21 History rosuvastatin 20 mg tablet 20 mg PO DAILY 07/20/21 12/04/21 History aspirin 81 mg tablet,delayed 81 mg PO DAILY 09/29/21 12/04/21 History release oxycodone-acetaminophen 10 mg-325 1 tab PO Q4H PRN Pain 10/03/21 12/04/21 History mg tablet (Percocet) dexamethasone 4 mg tablet 4 mg PO Q6H PRN Nausea 10/23/21 12/04/21 History ondansetron HCl 8 mg tablet 8 mg PO Q8H PRN Nausea 10/23/21 12/04/21 History prednisone 5 mg tablet 10 mg PO QAM 10/23/21 12/04/21 History prochlorperazine maleate 10 mg 10 mg PO Q6H PRN Nausea 10/23/21 12/04/21 History tablet gabapentin 300 mg capsule 300 mg PO BID 12/03/21 12/04/21 History morphine 30 mg tablet,extended 30 mg PO BID 12/03/21 12/04/21 History release naloxegol 25 mg tablet (Movantik) 25 mg PO QAM 12/03/21 12/04/21 History Patient History Medical History (Updated 12/06/21 @ 08:18 by Storm Muse MD) Diabetes Diverticulosis GERD (gastroesophageal reflux disease) Hyperlipidemia Hypertension Prostate cancer Biopsy on 08/30/20 Prostate cancer metastatic to bone Prostate cancer metastatic to multiple sites Surgical History H/O shoulder surgery Left History of appendectomy History of surgery 4 iliac stents Family History Mother , 83yo Myocardial infarction Pacemaker CHF (congestive heart failure) Father , 62yo Lymphoma Brother Myocardial infarction Cardiac stents Dialysis patient Smoker Alcohol abuse Sister Cancer 6 sisters - none with cancer Son Urinary reflux Son Urinary reflux Social History Smoking Status: Current every day smoker Tobacco Type: Cigarettes Cigarettes Per Day: 1-2 PPD x 43 yrs; Tobacco Cessation Education Requested by Patient: Yes Hx Alcohol Use: No Hx Substance Use: No Preferred Language: Northern Irish Communication Ability: Effective Visual Impairment: No Limitations Ladle Builder Required: No Beliefs That Will Affect Care: None marital status: Current Living Situation: Spouse current occupational status: employed 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 [employer] How many Children do You have: 2 Other Information That Helps Us Care for You: No Feels Safe at Home: No Is there a partner from a previous relationship who is making you feel unsafe now?: No Any Concerns about Your Family Situation: No Would You Like to Speak to Someone About Your Situation: No Safety Concerns: Feels Safe At This Time caffeine: Yes (2-3 cups/day) during the past year weight has: remained stable Assistive Devices: None Review of Systems Review of Systems: All systems reviewed & are unremarkable except as noted in HPI & below Physical Exam Physical Exam: Well nourished male in nad Eyes: PERRL, conjunctivae normal, anicteric sclerae Respiratory: Normal respirations Gastrointestinal (Abdomen): Slightly distended but soft Skin: No rashes noted on his face though slightly mickey appearance to his face Psychiatric: A+Ox3, euthymic affect Results & Data ([facility]) Vital Signs (Past 12 Hours) Vital Signs Temp Pulse Pulse Resp BP BP Pulse Ox 12/11/21 11:49 36.7 C 91 H 22 129/74 94 12/11/21 11:20 12/11/21 08:00 36.5 C 105 H 106/72 96 12/11/21 07:28 12/11/21 07:24 93 H 12/11/21 06:13 36.5 C 92 H 20 116/69 92 12/11/21 04:38 36.4 C L 104 H 20 126/78 90 O2 Del Method O2 Flow Rate 12/11/21 11:49 Room Air 12/11/21 11:20 Nasal Cannula 2 12/11/21 08:00 Nasal Cannula 12/11/21 07:28 Nasal Cannula 2 12/11/21 07:24 12/11/21 06:13 Nasal Cannula 2 12/11/21 04:38 2 Laboratory Results na 130/k 4.0/cl 96/c02 25/bun 21/cr 0.5 wbc 8.99/hgb 10.1/hct 30.8/plt 154 Recent MRI's reviewed- metastatic disease but not to lumbar area
--- NOTE | 2021-12-11 17:18 | Hospitalist Progress Note ---
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 Admitting vitals are stable, admitting imagings [CTAP/cervical CT/lumbar CT/thoracic CT] reviewed with multiple metastasis noted. MRI cervical showed extensive/multifocal osseous metastatic disease. Abnormal enhancing soft tissue within the anterior and posterior epidural space in the upper thoracic region as above is consistent with metastatic disease. MRI lumbar showed extensive skeletal metastatic disease within the lumbar spine which has mildly progressed since MRI of November 14, 2021. Minimal epidural extension of tumor at the T11 level. MRI thoracic showed evidence of extensive epidural tumor as detailed above, corresponding to the findings on the 12/04/[address] Radiation Oncology on board Case discussed with radiation oncology that plan for CT simulation today and plan to start on radiation treatment tomorrow Neurology on board recommended IV dexamethasone 6mg QID x 3days then decrease to 4mg BID (start 12/10) Dexamethasone taper to 4mg BID Dr. Howe Oncology was notified about the MRI findings PT/OT eval Constipation Ileus Repeat KUB showed Redemonstration of gas distended loops of bowel compatible with ileus Pt had 3 BM yesterday Continue stool softener and laxative Will advanced diet Gastro consulted recommended to try a conventional colon bowel prep first with the additional of miralax to his current bowel regimen- Hyponatremia Na 130 today Possible related to poor intake and diarrhea Diet advanced Continue monitor BMP Acute on chronic anemia: Baseline hemoglobin appears around 10-11, admitting hemoglobin of 8.2. hgb 9.1 today Serum iron within normal limits. FOBT negative. 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 He says his next chemotherapy is on ; Dr. Nolasco informed regarding the hospitalization. We will provide him updates. He is on morphine extended release 30 mg twice daily as per palliative care and Percocet every 4 hours as needed. Plan for radiation therapy today Tobacco use disorder: declined nicotine patch, counselled. DVT px; Heparin Full code. Admission and Anticipated Discharge Date Admission Date: December 04, 2021 Subjective Pt was seen and examined for follow up back pain, constipation and abdominal discomfort Sitting in chair with no acute distress with at bedside Pt said his abdominal continue to feel bloating He said that he had 3BM yesterday Denies any chest pain, palpitation, dizziness and SOB Review of Systems Review of Systems: All systems reviewed & are unremarkable except as noted in Subjective Physical Exam Physical Exam: General- No acute distress Head- atraumatic Eyes- PERRL, EOMI, ENT- oropharynx clear Neck- supple, no JVD Lungs- clear to auscultation Heart- regular rhythm; no murmur Abdomen- normal bowel sounds, soft, nontender Extremities- no calf tenderness, decreases motor strength in b/l LE (unable to lift her leg up ) Neuro- alert, oriented x 3; PERRL, EOMI; no facial palsy; no dysarthria Skin- warm & dry Results & Data Results & Data ([facility]) Vital Signs (Past 12 Hours) Vital Signs Temp Pulse Pulse Resp BP Pulse Ox O2 Del Method 12/11/21 16:00 36.6 C 96 H 20 138/82 98 Nasal Cannula 12/11/21 15:48 96 H 12/11/21 13:41 Nasal Cannula 12/11/21 11:49 36.7 C 91 H 22 129/74 94 Room Air 12/11/21 11:20 Nasal Cannula 12/11/21 08:00 36.5 C 105 H 106/72 96 Nasal Cannula 12/11/21 07:28 Nasal Cannula 12/11/21 07:24 93 H 12/11/21 06:13 36.5 C 92 H 20 116/69 92 Nasal Cannula O2 Flow Rate 12/11/21 16:00 2 12/11/21 15:48 12/11/21 13:41 12/11/21 11:49 12/11/21 11:20 2 12/11/21 08:00 12/11/21 07:28 2 12/11/21 07:24 12/11/21 06:13 2
[2021-12-11] MEDS ORDERED: SIMETHICONE 80 MG CHEW PO STA (19:22)
[2021-12-11] MEDS ORDERED: POLYETHYLENE (MIRALAX) 17 GM PACK PO STA (19:30)
[2021-12-11] MEDS ORDERED: LACTULOSE SYRUP 30 GM/45 ML UDP PO STA (19:36)
[2021-12-11] MEDS ORDERED: POLYETHYLENE (MIRALAX) 17 GM PACK PO SCH (19:45)
[2021-12-12] MEDS ORDERED: METHYLNALTREXONE BROMIDE 12 MG/0.6 ML VIAL SQ STA (00:43)
[2021-12-12] MEDS: FAMOTIDINE 40 MG TABLET PO SCH (05:58)
[2021-12-12] MEDS: ALUMINUM/MAGNESIUM SUSP 30 ML UDC PO PRN (06:44)
[2021-12-12] MEDS ORDERED: POLYETHYLENE (MIRALAX) 17 GM PACK PO SCH (09:00)
[2021-12-12] MEDS: bisacodyL 5 MG TABEC PO SCH ×2 (09:03→23:10)
[2021-12-12] MEDS: DOCUSATE SODIUM/SENNA 50/8.6MG TAB PO SCH ×2 (09:03→21:10)
[2021-12-12] MEDS: dexAMETHasone 4 MG in SYRINGE 0 ML IV SCH ×2 (09:03→21:09)
[2021-12-12] MEDS: ROSUVASTATIN CALCIUM 20 MG TAB PO SCH (09:04)
[2021-12-12] MEDS: ASPIRIN 81 MG ECTAB PO SCH (09:04)
[2021-12-12] MEDS: LORATADINE 10 MG TAB PO SCH (09:04)
[2021-12-12] MEDS: GABAPENTIN 300 MG CAP PO SCH ×2 (09:04→21:11)
[2021-12-12] MEDS: NICOTINE 21 MG/24 HR TDSY TD SCH (09:05)
[2021-12-12] MEDS: MOVANTIK PO SCH (09:05)
[2021-12-12] MEDS: HEPARIN SOD 5,000 UNIT/0.5 ML VIAL SQ SCH ×2 (09:06→21:12)
[2021-12-12] MEDS: MoRPHine SULFATE CR 15 MG TABCR PO SCH ×2 (09:12→21:12)
--- NOTE | 2021-12-12 09:51 | Gastroenterology Progress Note ---
Date of Service December 12, 2021 Assessment & Plan (1) Constipation: Plan 56 year old male with metastatic prostate CA on chemo/radiation admitted with weakness w/ suspected narcotic induced ileus/constipation Golytely 2L today Diet as tolerated Can hold Movantik Can use MOM daily PRN If no improvement, consider relistor Saturday Admission and Anticipated Discharge Date Admission Date: December 04, 2021 Supervising Physician Co-Signing Physician Notes Passing liquid bm's PE as documented Agree with further plan of care as documented. Subjective Pt was seen and chart reviewed Had some liquid stool last night and early this AM No abd pain, some distention Some nausea, no vomiting KUB yesterday: Air-filled loops of large and small bowel are redemonstrated and appear similar to the comparison studies. Findings are again suggestive of ileus. Multifocal osteoblastic skeletal metastasis redemonstrated. Review of Systems Review of Systems: All systems reviewed & are unremarkable except as noted in HPI & below Physical Exam Constitutional: WD/WN, vitals as above Respiratory: normal respiratory effort, lungs clear to auscultation Cardiovascular: Rate/Rhythm: regular rate Gastrointestinal (Abdomen): normal bowel sounds, soft, nontender, no hepatosplenomegaly Skin: no rashes, warm and dry Results & Data ([facility]) Vital Signs (Past 12 Hours) Vital Signs Temp Pulse Pulse Resp BP BP Pulse Ox 12/12/21 07:43 36.6 C 99 H 20 110/73 96 12/12/21 04:46 36.8 C 95 H 20 129/81 92 12/11/21 22:20 104 H 12/11/21 22:51 36.8 C 91 H 18 136/77 97 O2 Del Method O2 Flow Rate 12/12/21 07:43 Nasal Cannula 2 12/12/21 04:46 Nasal Cannula 2 12/11/21 22:20 12/11/21 22:51 Nasal Cannula 2 Laboratory Results 12/12/21 12/12/21 Range/Units 09:17 07:32 Sodium Pending Potassium Pending Chloride Pending Carbon Dioxide Pending Anion Gap Pending BUN Pending Creatinine Pending Est Cr Clr Drug Dosing Pending Est GFR ( Amer) Pending Est GFR (Non-Af Amer) Pending BUN/Creatinine Ratio Pending Glucose Pending Calcium Pending Phosphorus Pending 3.8 (2.5-4.9) mg/dl Magnesium Pending (1) Constipation Constipation type: unspecified constipation type Qualified Code(s): K59.00 - Constipation, unspecified
[2021-12-12 10:20] LABS: BUN Creatinine Ratio 55.8 (10-20); Calcium 8.2 mg/dl (8.5-10.1); Est GFR (African American) 148.3 ml/min; Magnesium 2.2 mg/dl (1.7-2.4); Phosphorus 3.4 mg/dl (2.5-4.9); Potassium 3.6 mmol/L (3.5-5.1)
[2021-12-12] MEDS ORDERED: LAVAGE SOLUTION 4000ML PO SCH (12:00)
[2021-12-12] MEDS: SODIUM CHLORIDE 0.9% 1000ML 1,000 ML IV SCH (12:33)
--- NOTE | 2021-12-12 16:00 | Neurology Progress Note ---
Date of Service December 12, 2021 Assessment & Plan (1) Paraparesis of both lower limbs: Plan: Impression: The patient has history of metastatic prostate cancer, with extensive spinal osseous and epidural metastases and spinal canal narrowing, who presents with new onset lower extremity weakness and some new sensory deficit. He also has urinary retention. Such symptoms suggestive of myelopathy which can be compressive or metastatic. Bony and epidural metastases are common in prostate cancer, but very occasional intraluminal cord metastases. Based on current spinal MRI findings, there is some worsening of thoracic epidural tumor involvement as well as bony changes with neuroforaminal narrowing, and probable cord compression at T3 with cord edema, which is likely cause of the patient's recent worsening symptoms. He has been receiving radiation therapy to thoracic spine. His leg weakness has been deteriorated and now paraplegic. Plan/recommendations: Decrease Dexamethasone dosage to 2 mg iv BID for 5 days then 2 mg for another 5 days then stop. Radiation therapy to thoracic spine --F/u with heme-Onc. (2) Prostate cancer metastatic to bone: Plan: Impression: The patient was diagnosed with prostate cancer in August 2020.He has been on chemotherapy with Firmagon, Xfevea plus apalutamide and received radiation therapy to the lumbar, thoracic and pelvic region. The recent spinal MRI showed some extension of thoracic epidural involvement as well as spinal stenosis and T3 level cord edema. Plan/recommendations: As seen above. (3) Ileus: Plan: Impression: The patient has had only minimal bowel movements since admission. His abdomen is distended. The patient has been followed by gastroenterology. Plan We will sign off. Admission and Anticipated Discharge Date Admission Date: December 04, 2021 Subjective The patient has been receiving radiation therapy to thoracic spine. His lower extremity weakness has been worse and he is paraplegic currently. He has Malin and for urination. He has ileus which has been followed by gastroenterology. Dexamethasone dosage was decreased to 4 mg twice a day for last 3 days. Ob viously, there has been worsening of lower extremity weakness and we have not noticed any benefit from steroid so far. The patient reports improvement no back pain on radiation therapy. Review of Systems Review of Systems: All systems reviewed & are unremarkable except as noted in Subjective Physical Exam Physical Exam: General Examination: Constitutional: Well developed person in no acute distress. HEENT: Normal exam with inspection. CV: Hearth rhythm is regular. Neck: Supple, no carotid bruits. Lungs: Non-labored and comfortable breathing. Abdomen: Significantly distended Skin: No rash or ecchymosis. Extremities: No edema or cyanosis NEUROLOGICAL EXAMINATION: Mental Status: Alert and oriented to place, person and time. Cranial Nerves: II-XII are intact. No nystagmus. Funduscopy: Normal looking optic discs. Motor: 5/5 in upper extremities and 1+ to 2-/5 in lower extremities Tone: Normal without spasticity or rigidity. Decreased tone in legs. Sensory: There is no clear or sensory leveling during physical examination. However, the patient describes bandlike altered feeling between T5-T8 levels. He also has decreased sensation on left lower extremity below knee, decreased sensation of right proximal thigh. He also describes decreased sensation in genitalia and groin region. DTRs: 2+ in upper extremities, 2-in knees, and 1- in ankles symmetrically. There is no Babinski. Coordination: No dysmetria with FTN testing. Speech: Fluent. Comprehension is intact. Gait: The patient cannot walk. With help, he can stand up with walker. Musculoskeletal: Normal muscle bulk, no atrophy. Results & Data ([facility]) Vital Signs (Past 12 Hours) Vital Signs Temp Pulse Resp BP Pulse Ox O2 Del Method O2 Flow Rate 12/12/21 11:34 36.4 C L 104 H 20 111/47 L 90 Room Air 12/12/21 07:43 36.6 C 99 H 20 110/73 96 Nasal Cannula 2 12/12/21 04:46 36.8 C 95 H 20 129/81 92 Nasal Cannula 2 Laboratory Results Laboratory Results - last 24 hr 12/12/21 12/12/21 07:32 09:17 Sodium 129 L Potassium 3.6 Chloride 97 L Carbon Dioxide 23 Anion Gap 9 BUN 24 H Creatinine 0.43 L Est Cr Clr Drug Dosing 171.0 Est GFR ( Amer) 148.3 Est GFR (Non-Af Amer) 128.0 BUN/Creatinine Ratio 55.8 H Glucose 103 H Calcium 8.2 L Phosphorus 3.8 3.4 Magnesium 2.2 Diagnostic Findings Abdomen/Pelvis CT 12/04/21 08:[address] WITH IV CONTRAST CT DOSE: HISTORY: Metastatic disease bilateral lower extremity weakness, back pain, retenti TECHNIQUE: Multiaxial CT images of the abdomen and pelvis were performed following the use of intravenous contrast. A dose lowering technique was utilized adhering to the principles of ALARA. COMPARISON STUDY: Abdomen and pelvis CT 12/02/2021. FINDINGS: There are trace bilateral pleural effusions which are new from the prior study. Patchy bilateral lower lobe densities have also slightly progressed. There is emphysema again noted at the lung bases. Small nodular densities along the right minor fissure remain stable. No pneumoperitoneum. No pneumatosis. Multifocal osteoblastic metastatic disease is similar to the prior CT examination. No acute fractures identified. There again noted a few scattered hypodense lesions within the liver. These are better appreciated on this examination likely due to the time of contrast. There are 2 tandem lesions identified. These likely represent metastatic disease. There are few punctate gallstones. No gallbladder wall thickening. The spleen and right adrenal gland are unremarkable. A 2.1 cm left adrenal gland nodules again noted. There are few prominent left para-aortic lymph nodes, unchanged. These are concerning for metastatic disease. The kidneys enhance normally. No hydronephrosis. Bilateral common iliac artery stents are patent. No pelvic lymphadenopathy. There is a Malin catheter within the bladder. There is mild bladder wall thickening. Fluid- filled nondilated loops of large and small bowel seen throughout the abdomen. No evidence for a bowel obstruction. IMPRESSION: 1. Redemonstration of the metastatic disease within the abdomen and pelvis as described above. This is similar to the prior study. 2. Fluid-filled nondilated loops of large and small bowel. This can be seen in the setting of a gastroenteritis/diarrheal illness. No evidence for bowel obstruction. 3. Cholelithiasis. 4. Patchy bibasilar densities and trace bilateral pleural effusions have progressed. This could represent atelectasis or a pneumonia. 5. Bladder wall thickening. This may represent a cystitis. Recommend correlation with urinalysis. ACT 112: Negative or not required by law. Electronically signed by: Francisco Javier Navarrete M.D. 12/04/2021 12:[address] 12/04/21 08:58 CT cervical spine wo con CLINICAL HISTORY: 56 years-old Male with metstatic disease BLE weakness, back pain, retenti. Acute neck pain with upper extremity weakness in a patient with skeletal metastasis COMPARISON: CT thoracic spine of same day, MRI thoracic spine 11/14/2021 TECHNIQUE: Multiple axial CT images of the cervical spine were obtained without contrast. A dose lowering technique was utilized adhering to the principles of ALARA. FINDINGS: Multifocal osteoblastic skeletal metastasis redemonstrated. Mild superior endplate compression again noted at C7, T1 and T2 which is similar to the prior study. There is mild multilevel intervertebral disc space narrowing and spondylitic spurring with [id number] facet arthrosis. No acute fracture, subluxation or endplate erosion identified. No pneumothorax. Emphysematous changes of the lung apices without pneumothorax. There is no prevertebral edema of the cervical spine. There is however mild paravertebral edema of the upper thoracic spine which was also present on the comparison MRI. No high-grade central canal or neural foraminal narrowing of the cervical spine identified. IMPRESSION: 1. Multifocal osteoblastic skeletal metastasis redemonstrated. No acute pathologic fracture identified. 2. Unchanged appearance of the mild C7, T1 and T2 compression deformities. 3. Upper thoracic paravertebral edema is similar to the 11/14/2021 MRI exam. 4. Pulmonary emphysema. ACT 112: Negative or not required by law. The above report was generated using voice recognition software. It may contain grammatical, syntax or spelling errors. Electronically signed by: Rick Moreno M.D. 12/04/2021 11:[address] 12/04/21 08:58 CT lumbar spine wo con CLINICAL HISTORY: metstatic disease BLE weakness, back pain, retenti TECHNIQUE: Multidetector row helical CT of the lumbar spine was performed without administration of intravenous contrast. Coronal and sagittal reformations were obtained. Automated dose lowering techniques and/or adjustment according to patient size were utilized for this exam. Comparison: Comparison is made to CT abdomen pelvis 07/07/2021 FINDINGS: For counting purposes, the last complete intervertebral disc space is considered L5-S1.Numerous sclerotic foci are seen throughout the skeleton. These are stable to minimally enlarged from prior CT. For example, a 19 mm focus of the superior aspect of the L1 vertebral body previously measured 18 mm. Mild degenerative changes are seen most prominent at L3-L4. Please see CT abdomen pelvis for detailed findings of the soft tissues. IMPRESSION: Numerous sclerotic foci within the skeleton are stable to minimally enlarged from prior exam compatible with metastatic disease. No evidence of acute fracture. ACT 112: Negative or not required by law. Electronically signed by: Gonzalez Vallejo M.D. 12/04/2021 11:[address] 12/04/21 08:[address] DOSE: 2333.11 mGy.cm HISTORY: metastatic disease with bilateral lower extremity weakness, back pain, retention TECHNIQUE: Multiaxial CT images of the thoracic spine were performed and reformatted in the sagittal and coronal plane without the use of contrast. A dose lowering technique was utilized adhering to the principles of ALARA. COMPARISON: Outside hospital thoracic spine MRI 11/14/2021. FINDINGS: Redemonstration of the extensive multifocal osteoblastic metastatic disease seen throughout the thoracic spine. This is similar to the prior outside hospital thoracic spine MRI. Mild super endplate compression at C7, T1, T2, and T3 is similar to the prior study. This is likely chronic. No acute fractures identified within the thoracic spine. Paravertebral edema and soft tissue thickening from the T1-T8 level is again noted and is consistent with metastatic disease. This is best seen at the T5-T6 levels which demonstrates up to 8 mm of prevertebral soft tissue thickening. There is associated epidural soft tissue from the T3-T8 levels also consistent with metastatic disease. This epidural soft tissue results in [id number] central canal narrowing within the upper to mid thoracic spine most pronounced at the T5-T6 level. The transverse diameter of the thecal sac at this level is approximately 7 mm this is also similar to the prior study. There are trace bilateral pleural effusions. Emphysema. Patchy densities within the lung bases posteriorly may represent atelectasis. A pneumonia could also have a similar appearance. IMPRESSION: 1. Redemonstration of extensive multifocal osteoblastic metastatic disease seen throughout the thoracic spine and visualized ribs. This is similar to the prior outside hospital MRI. 2. There is also abnormal paravertebral and epidural soft tissue from the T1-T8 levels consistent with metastatic disease. The epidural component is most pronounced at the T5-T6 level which results in moderate central canal narrowing. This is also similar to the prior outside hospital MRI. 3. Trace bilateral pleural effusions. 4. Mild superior endplate compression deformities at C7, T1, T2, T3 are also similar to the prior study. No acute fractures identified. 5. Additional findings as described above. ACT 112: Negative or not required by law. Electronically signed by: Francisco Javier Navarrete M.D. 12/04/2021 12:15 PM Thoracic Spine MRI 12/05/21 16:51 MRI OF THE THORACIC SPINE COMBO CLINICAL HISTORY: Prostate cancer. Myelopathy. COMPARISON STUDY: CT of the thoracic spine dated 12/04/2021. TECHNIQUE: MRI of the thoracic spine is performed utilizing various T1 and T2- weighted sequences in the axial and sagittal planes. Contrast-enhanced sequences are acquired following the IV administration of 8.5 cc of Gadavist. FINDINGS: Again seen is extensive/multifocal osseous metastatic disease. This is seen throughout the thoracic spine including the posterior elements. There are also bilateral rib lesions. There are chronic compression deformities of C7, T1, T2, and T3. Disc desiccation and loss of height is seen throughout the thoracic region. There is extensive abnormal enhancing paravertebral soft tissue seen extending from T4 to T7 consistent with tumor. Additionally, there is abnormal enhancing epidural soft tissue in the upper thoracic region. This is seen posteriorly from C7 to T10, and anteriorly from T1 through T8. This is consistent with epidural tumor. This is greatest at T3-T6, with effacement of the thoracic spinal cord. This also involves several of the bilateral neural foramina at these levels, greatest from T3-T4 through T5-T6. The thoracic cord is normal in morphology. There is mild signal heterogeneity within the thoracic cord at the level of T3 which may represent mild edema. No abnormal cord enhancement is identified. The conus medullaris terminates at the level of L1. There are small pleural effusions. IMPRESSION: 1. Again seen is evidence of extensive osseous metastatic disease. 2. There is paravertebral tumor in the upper thoracic region as above. 3. There is evidence of extensive epidural tumor as detailed above, corresponding to the findings on the 12/04/[address] 4. Heterogeneous signal is noted within the thoracic cord at the level of T3 which may represent mild edema. 5. Chronic compression deformities as above. There is no MRI evidence of acute pathological fracture. Dictated: 12/06/2021 10:53 AM Transcribed: 12/06/2021 11:46 AM Cecilia [id number] [email or web address] Electronically signed by: Julio Cesar Mcgraw M.D. 12/06/2021 11:51 AM Lumbar Spine MRI 12/05/21 16:52 MRI OF THE LUMBAR SPINE WITH AND WITHOUT CONTRAST CLINICAL HISTORY: new onset leg weakness, prostate cancer COMPARISON STUDY: Lumbar spine CT December 04, 2021. Lumbar spine MRI November 14, 2021. TECHNIQUE: Utilizing a 1.5 Arely magnet and dedicated coil, multiplanar, multiecho imaging of the lumbar spine was performed before and after uneventful IV administration of 8.5 mL of Gadavist. FINDINGS: For purposes of numbering on this exam, the L5-S1 disc space is assigned to axial image 19 of 30 of the lower axial sequences. Alignment of the lumbar spine is anatomic. Vertebral body heights are maintained. The conus terminates at the mid L1 level. There is no mass or abnormal enhancement within the lumbar canal. Note is made of a small nodular focus of enhancement within the anterior epidural space at the T11 level. This represents epidural extension of tumor. Extensive multifocal marrow replacement within the lumbar spine, sacrum and coccyx is noted. This has slightly progressed since MRI of November 14, 2021. No pathologic fracture within the lumbar spine. The central canal and neural foramen are patent. Mild multilevel degenerative changes are present. A few prominent left periaortic lymph nodes measure up to 1.3 x 0.9 cm. IMPRESSION: Extensive skeletal metastatic disease within the lumbar spine which has mildly progressed since MRI of November 14, 2021. Minimal epidural extension of tumor at the T11 level. No pathologic fracture within the lumbar spine. ACT 112: Negative or not required by law. Electronically signed by: Onel Poe M.D. 12/06/2021 9:13 AM Cervical Spine MRI 12/05/21 16:53 MRI OF THE CERVICAL SPINE COMBO CLINICAL HISTORY: Prostate cancer. Lower extremity weakness. COMPARISON STUDY: CT of the cervical spine dated 12/04/2021. TECHNIQUE: MRI of the cervical spine is performed utilizing various T1 and T2- weighted sequences in the axial and sagittal planes. Contrast enhanced sequences were acquired following the IV administration of 8.5 cc of Gadavist. The examination is compromised by motion artifact. FINDINGS: Cervical spine: Again seen is evidence of extensive multifocal osseous metastatic disease throughout the cervical spine. There are mild compression deformities of C7, T1, T2, and T3. Vertebral body height is well maintained throughout the cervical spine. Alignment is preserved. The atlantodental articulation is maintained. The spinous processes appear intact. Intervertebral discs: Disc desiccation and mild loss of height is seen throughout the cervical spine. Central canal: The cervical cord is normal in morphology and signal intensity. No abnormal postcontrast enhancement is identified. There is abnormal enhancing soft tissue within the anterior and posterior epidural space in the upper thoracic spine. This is best seen on the sagittal postcontrast images, and extends posteriorly from C7 into the thoracic region and anteriorly from T1 into the thoracic region. This is consistent with epidural tumor. This effaces the thecal sac in the upper thoracic region. C2-C3: Facet arthropathy is of no consequence. The central canal and neural foramina are patent. C3-C4: A posterior disc osteophyte complex effaces the ventral subarachnoid space. Uncovertebral and facet arthropathy contribute to mild right neural foraminal stenosis. The left neural foramen is clear. C4-C5: A posterior disc osteophyte complex effaces the ventral subarachnoid space. Facet arthropathy is of no consequence. The neural foramina are patent. C5-C6: A posterior disc osteophyte complex abuts the ventral cord. Facet arthropathy is of no consequence. The neural foramina are patent. C6-C7: Unremarkable. C7-T1: Unremarkable. Soft tissues: Enhancing paravertebral soft tissue in the upper thoracic region is consistent with metastatic disease. There is mild nonspecific prevertebral edema in the cervical region. Brain parenchyma: The visualized brain parenchyma at the skull base is within normal limits. IMPRESSION: 1. Again seen is extensive/multifocal osseous metastatic disease as above. 2. Mild chronic compression deformities in the lower cervical and upper thoracic region as above. 3. Abnormal enhancing soft tissue within the anterior and posterior epidural s pace in the upper thoracic region as above is consistent with metastatic disease. See above. 4. The cervical cord is normal in morphology and signal intensity. Dictated: 12/06/2021 10:09 AM Transcribed: 12/06/2021 10:37 AM Cecilia [id number] [email or web address] Electronically signed by: Julio Cesar Mcgraw M.D. 12/06/2021 11:39 AM KUB X-Ray 12/08/21 10:14 KUB HISTORY: Acute generalized abdominal pain with distention abdominal distension COMPARISON: CT abdomen and pelvis 12/04/2021 FINDINGS: Gaseous distention of the large bowel has progressed from the prior study now measuring up to approximately 10 cm. Air-filled mildly prominent loops of small bowel also noted. There is no organomegaly. No renal calculi. No ureteral calculi. No pneumoperitoneum or pneumatosis. No acute fracture identified. Multifocal sclerotic skeletal metastasis. By lateral iliac stent grafts. IMPRESSION: 1. Air-filled loops of large and small bowel with progressive gaseous distention of the colon compared to the 12/04/2021 study. Findings favor ileus with distal obstruction considered less likely. Follow-up recommended. 2. Multifocal osteoblastic skeletal metastasis redemonstrated. ACT 112: Negative or not required by law. The above report was generated using voice recognition software. It may contain grammatical, syntax or spelling errors. Electronically signed by: Rick Moreno M.D. 12/08/2021 1:01 PM KUB X-Ray 12/09/21 08:00 XR KUB/Abdomen 1 view CLINICAL HISTORY: f/u ileus TECHNIQUE: 1 view of the abdomen was obtained. Comparison: Comparison is made to abdomen radiograph 12/08/2021 FINDINGS: Lung bases are unremarkable. Degenerative changes are seen in the visualized skeleton. Numerous blastic foci are again noted in the skeleton. Numerous gas distended loops of bowel are again seen, overall similar in extent to prior exam. A moderate amount of stool is noted within the large bowel. Bilateral iliac stent grafts noted. IMPRESSION: 1. Redemonstration of gas distended loops of bowel compatible with ileus. 2. Multifocal skeletal metastasis again noted. ACT 112: Negative or not required by law. Electronically signed by: Gonzalez Vallejo M.D. 12/09/2021 2:53 PM KUB X-Ray 12/11/21 07:53 KUB HISTORY: Follow up study in a patient with generalized abdominal pain f/u COMPARISON: KUB 12/09/2021, 12/08/2021. FINDINGS: Gaseous distention of the large bowel redemonstrated measuring up to approximately 12 cm. Air-filled loops of small bowel are also noted. No renal calculi. No ureteral calculi. No pneumoperitoneum or pneumatosis. Iliac stents redemonstrated. Multifocal osteoblastic skeletal metastasis. IMPRESSION: 1. Air-filled loops of large and small bowel are redemonstrated and appear similar to the comparison studies. Findings are again suggestive of ileus. 2. Multifocal osteoblastic skeletal metastasis redemonstrated. ACT 112: Negative or not required by law. The above report was generated using voice recognition software. It may contain grammatical, syntax or spelling errors. Electronically signed by: Rick Moreno M.D. 12/11/2021 11:10 AM
--- NOTE | 2021-12-12 20:45 | Hospitalist Progress Note ---
Date of Service December 12, 2021 Assessment & Plan (1) Lower extremity weakness: Plan BLE Weakness Urinary retention status post Malin placement Patient presented with progressive BLE weakness since 2-3 days [employer], can't stand now, no sensory loss, no loss of bowel or bladder control, denies trauma to lower extremities. 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 Admitting vitals are stable, admitting imagings [CTAP/cervical CT/lumbar CT/thoracic CT] reviewed with multiple metastasis noted. MRI cervical showed extensive/multifocal osseous metastatic disease. Abnormal enhancing soft tissue within the anterior and posterior epidural space in the upper thoracic region as above is consistent with metastatic disease. MRI lumbar showed extensive skeletal metastatic disease within the lumbar spine which has mildly progressed since MRI of November 14, 2021. Minimal epidural extension of tumor at the T11 level. MRI thoracic showed evidence of extensive epidural tumor as detailed above, corresponding to the findings on the 12/04/[address] MRI spine results reviewed with Ortho spine Dr. Mcdaniel- No surgical intervention since multi vertebra involved Radiation Oncology on board Case discussed with radiation oncology that plan for CT simulation today and plan to start on radiation treatment tomorrow Neurology on board recommended to taper IV dexamethasone 2mg IV BID x 5 days then 2 mg another [address] Howe Oncology was notified about the MRI findings PT/OT eval Constipation Ileus Repeat KUB showed Redemonstration of gas distended loops of bowel compatible with ileus Continue stool softener and laxative Gastro on board Started on Golytely If no improvement, consider relistor again on Saturday Hyponatremia Na 129 today Possible related to poor intake and diarrhea Continue IVF Diet advanced If Na continues to drop, will consult nephrology Continue monitor BMP Acute on chronic anemia: Baseline hemoglobin appears around 10-11, admitting hemoglobin of 8.2. hgb 9.1 today Serum iron within normal limits. FOBT negative. 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 He says his next chemotherapy is on ; Dr. Nolasco informed regarding the hospitalization. We will provide him updates. He is on morphine extended release 30 mg twice daily as per palliative care and Percocet every 4 hours as needed. Plan for radiation therapy today Tobacco use disorder: declined nicotine patch, counselled. DVT px; Heparin Full code. Admission and Anticipated Discharge Date Admission Date: December 04, 2021 Subjective Pt was seen and examined for follow up back pain, constipation and abdominal discomfort Lying in bed with no acute distress Pt is getting frustrated because he continue to feel bloatlng Nurse said that last night he was manually disimpacted some stools Denies any chest pain, palpitation, dizziness and SOB Review of Systems Review of Systems: All systems reviewed & are unremarkable except as noted in Subjective Physical Exam Physical Exam: General- No acute distress Head- atraumatic Eyes- PERRL, EOMI, ENT- oropharynx clear Neck- supple, no JVD Lungs- clear to auscultation Heart- regular rhythm; no murmur Abdomen- normal bowel sounds, +distended Extremities- no calf tenderness, decreases motor strength in b/l LE (unable to lift her leg up ) Neuro- alert, oriented x 3; PERRL, EOMI; no facial palsy; no dysarthria Skin- warm & dry Results & Data Results & Data ([facility]) Vital Signs (Past 12 Hours) Vital Signs Temp Pulse Resp BP BP Pulse Ox O2 Del Method 12/12/21 19:40 36.8 C 93 H 18 118/73 92 Nasal Cannula 12/12/21 15:49 36.3 C L 98 H 20 102/67 91 Room Air 12/12/21 11:34 36.4 C L 104 H 20 111/47 L 90 Room Air O2 Flow Rate 12/12/21 19:40 2 12/12/21 15:49 12/12/21 11:34
[2021-12-13] MEDS: SODIUM CHLORIDE 0.9% 1000ML 1,000 ML IV SCH (02:05)
[2021-12-13] MEDS: MoRPHine SULFATE CR 15 MG TABCR PO SCH ×2 (08:07→20:43)
[2021-12-13] MEDS: DOCUSATE SODIUM/SENNA 50/8.6MG TAB PO SCH ×2 (08:07→20:43)
[2021-12-13] MEDS: dexAMETHasone 4 MG in SYRINGE 0 ML IV SCH ×2 (08:08→20:41)
[2021-12-13] MEDS: HEPARIN SOD 5,000 UNIT/0.5 ML VIAL SQ SCH ×2 (08:08→20:45)
[2021-12-13] MEDS: FAMOTIDINE 40 MG TABLET PO SCH (08:08)
[2021-12-13] MEDS: bisacodyL 5 MG TABEC PO SCH ×2 (08:08→23:25)
[2021-12-13] MEDS: GABAPENTIN 300 MG CAP PO SCH ×2 (08:09→20:43)
[2021-12-13] MEDS: ROSUVASTATIN CALCIUM 20 MG TAB PO SCH (08:09)
[2021-12-13] MEDS: LORATADINE 10 MG TAB PO SCH (08:09)
[2021-12-13] MEDS: NICOTINE 21 MG/24 HR TDSY TD SCH (08:10)
[2021-12-13] MEDS: ASPIRIN 81 MG ECTAB PO SCH (08:10)
[2021-12-13 09:08] LABS: Hematocrit (blood only) 28.1 % (40.1-51.0); Hemoglobin 9.3 g/dl (14.0-18.0); Mean Corpuscular Hemoglobin 27.4 pg (25.0-34.0); Mean Corpuscular Hgb Conc 33.1 g/dL (32.0-36.0); Mean Corpuscular Volume 82.9 fL (80.0-100.0); Mean Platelet Volume 9.7 fL (9.4-12.4); Nucleated RBC # (auto) 0.02 K/uL (0-0); Nucleated RBC % (auto) 0.4 %; Platelet Count 102 K/uL (130-400); RDW Coefficient of Variation 17.7 % (11.5-14.5); RDW Standard Deviation 52.6 fL (36.4-46.3); Red Blood Count 3.39 M/uL (4.63-6.08)
[2021-12-13 09:23] LABS: Calcium 7.5 mg/dl (8.5-10.1); Creatinine Clr Calc Pharmacy 159.9 ml/min; Est GFR (African American) 144.3 ml/min; Est GFR (Non-African American) 124.5 ml/min; Potassium 3.9 mmol/L (3.5-5.1)
--- NOTE | 2021-12-13 09:39 | Gastroenterology Progress Note ---
Date of Service December 13, 2021 Assessment & Plan (1) Constipation: Plan 56 year old male with metastatic prostate CA on chemo/radiation admitted with weakness w/ suspected narcotic induced ileus/constipation. He had limited response to Golytely, notes he is more distended today, KUB ordered. Would continue with Golytely 2 L again today. Relistor every other day while movantik is on hold pending KUB result. MOM PRN. OOB to chair encouraged as he is unable to ambulate. Thank you for allowing us to participate in the care of this patient. Please call with any acute changes, questions or concerns. Please see addendum below with additional recommendation from my supervising physician. Admission and Anticipated Discharge Date Admission Date: December 04, 2021 Supervising Physician Co-Signing Physician Notes KUB reviewed - ileus Consider ng tube placement smog enemas He has extremely slow transit likely due to narcotic induced constipation- he has been on senna, movantik, relistor, dulcolax, had a bowel prep. Consider addition of smog enemas. Ideally if he can not be bed bound that may helps as well - oob to chair. Subjective Pt was seen and evaluated, chart reviewed Family at bedside. He feels more distended today He had two small liquid movements yesterday after digital disimpaction He had nausea and emesis with Golytely Review of Systems Review of Systems: All systems reviewed & are unremarkable except as noted in HPI & below Physical Exam Constitutional: WD/WN, vitals as above Respiratory: normal respiratory effort; no respiratory distress Cardiovascular: Rate/Rhythm: regular rate Gastrointestinal (Abdomen): Inspection/Auscultation: abdomen normal to inspection and + abdomen distended Percussion/Palpation: + abdomen tender (generalized with palpation) and abdomen soft; no guarding and abdomen not rigid Skin: no rashes, warm and dry Results & Data ([facility]) Vital Signs (Past 12 Hours) Vital Signs Temp Pulse Pulse Resp BP BP Pulse Ox 12/13/21 08:00 12/13/21 07:12 101 H 12/13/21 07:11 36.8 C 89 18 118/75 92 12/13/21 03:09 36.8 C 97 H 18 118/72 93 12/12/21 22:15 92 H 12/12/21 23:04 36.3 C L 92 H 18 136/76 96 O2 Del Method O2 Flow Rate 12/13/21 08:00 Nasal Cannula 2 12/13/21 07:12 12/13/21 07:11 Nasal Cannula 12/13/21 03:09 Nasal Cannula 2 12/12/21 22:15 12/12/21 23:04 Nasal Cannula 2 Laboratory Results 12/13/21 12/13/21 12/12/21 Range/Units 08:38 08:38 09:17 WBC 5.00 (4.8-10.8) K/ul RBC 3.39 L (4.63-6.08) M/uL Hgb 9.3 L (14.0-18.0) g/dl Hct 28.1 L (40.1-51.0) % MCV 82.9 (80.0-100.0) fL MCH 27.4 (25.0-34.0) pg MCHC 33.1 (32.0-36.0) g/dL RDW Std Deviation 52.6 H (36.4-46.3) fL RDW Coeff of Jasmyn 17.7 H (11.5-14.5) % Plt Count 102 L (130-400) K/uL MPV 9.7 (9.4-12.4) fL Absolute Nucleated RBC 0.02 H (0-0) K/uL Nucleated RBC % (auto) 0.4 % Sodium 130 L 129 L (136-145) mmol/L Potassium 3.9 3.6 (3.5-5.1) mmol/L Chloride 99 97 L (98-107) mmol/L Carbon Dioxide 22 23 (21-32) mmol/L Anion Gap 9 9 (3-11) BUN 17 24 H (6-23) mg/dl Creatinine 0.46 L 0.43 L (0.6-1.4) mg/dl Est Cr Clr Drug Dosing 159.9 171.0 ml/min Est GFR ( Amer) 144.3 148.3 ml/min Est GFR (Non-Af Amer) 124.5 128.0 ml/min BUN/Creatinine Ratio 37.0 H 55.8 H (10-20) Glucose 96 103 H (70-99(Fasting)) mg/dl Calcium 7.5 L 8.2 L (8.5-10.1) mg/dl Phosphorus 3.4 (2.5-4.9) mg/dl Magnesium 2.2 (1.7-2.4) mg/dl (1) Constipation Constipation type: unspecified constipation type Qualified Code(s): K59.00 - Constipation, unspecified
--- NOTE | 2021-12-13 10:16 | Hospitalist Progress Note ---
Date of Service December 13, 2021 Assessment & Plan (1) Lower extremity weakness: Plan BLE Weakness Urinary retention status post Wheatley placement Patient presented with progressive BLE weakness since 2-3 days [employer] Denies new acute pain on his chronic pain from bone metastasis. Admitting imagings [CTAP/cervical CT/lumbar CT/thoracic CT] reviewed with multiple metastasis noted. MRI cervical showed extensive/multifocal osseous metastatic disease. Abnormal enhancing soft tissue within the anterior and posterior epidural space in the upper thoracic region as above is consistent with metastatic disease. MRI lumbar showed extensive skeletal metastatic disease within the lumbar spine which has mildly progressed since MRI of November 14, 2021. Minimal epidural extension of tumor at the T11 level. MRI thoracic showed evidence of extensive epidural tumor as detailed above, corresponding to the findings on the 12/04/[address] MRI spine results reviewed with Ortho spine Dr. Mcdaniel- No surgical intervention since multi vertebra involved Radiation Oncology on board. Doing radiation therapy Neurology on board recommended to taper IV dexamethasone 2mg IV BID x 5 days then 2 mg another [address] Law had discussed with Dr Howe Oncology about the MRI findings Continue PT/OT Continue wheatley for now Constipation Ileus GI evaluation noted Repeat Golytely 2L today and start relistor q2D for the next few days while movantik is on hold Continue bowel regimen per GI Will follow up KUB ordered by GI Hyponatremia Na 130 today Chronic Check Uosm, Serum Osm, Celine Acute on chronic anemia: Baseline hemoglobin appears around 10-11, admitting hemoglobin of 8.2. Hb 9.3 today Serum iron within normal limits. FOBT negative. 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 Dr. Howe had been informed regarding the hospitalization. We will provide him updates. He is on morphine extended release 30 mg twice daily as per palliative care and Percocet every 4 hours as needed. Rad onc on board Tobacco use disorder: Counseled DVT px; Heparin Full code. Admission and Anticipated Discharge Date Admission Date: December 04, 2021 Subjective Patient seen and examined. Continues to report abdominal distention. Denied any abdominal pain. Reports back pain is controlled on current regimen. Reports constipation. Not passing flatus. Had small bowel movement this morning. Reported some nausea. Denies any chest pain, cough or shortness of breath. Still has lower extremity weakness and numbness Physical Exam Constitutional: no acute distress Chronically ill looking Eyes: PERRL, conjunctivae normal, anicteric sclerae ENMT: external ear and nose normal, oropharynx normal Respiratory: normal respiratory effort, lungs clear to auscultation Cardiovascular: Rate/Rhythm: regular rate and regular rhythm S1-S2 Gastrointestinal (Abdomen): Abdomen is distended, Nontender, no rebound tenderness or rigidity. Reduced bowel sounds Musculoskeletal: No pedal edema Neurologic: PERRL, EOMI, accommodation nl, no face palsy, no dysarthria Paraplegic Sensory deficits in lower extremity bilaterally Psychiatric: A+Ox3, euthymic affect Genitourinary: Wheatley in situ Results & Data Results & Data ([facility]) Vital Signs (Past 12 Hours) Vital Signs Temp Pulse Pulse Resp BP BP Pulse Ox 12/13/21 08:00 12/13/21 07:12 101 H 12/13/21 07:11 36.8 C 89 18 118/75 92 12/13/21 03:09 36.8 C 97 H 18 118/72 93 12/12/21 23:04 36.3 C L 92 H 18 136/76 96 O2 Del Method O2 Flow Rate 12/13/21 08:00 Nasal Cannula 2 12/13/21 07:12 12/13/21 07:11 Nasal Cannula 12/13/21 03:09 Nasal Cannula 2 12/12/21 23:04 Nasal Cannula 2 Laboratory Results Abnormal lab results 12/13/21 12/13/21 Range/Units 08:38 08:38 RBC 3.39 L (4.63-6.08) M/uL Hgb 9.3 L (14.0-18.0) g/dl Hct 28.1 L (40.1-51.0) % RDW Std Deviation 52.6 H (36.4-46.3) fL RDW Coeff of Jasmyn 17.7 H (11.5-14.5) % Plt Count 102 L (130-400) K/uL Absolute Nucleated RBC 0.02 H (0-0) K/uL Sodium 130 L (136-145) mmol/L Creatinine 0.46 L (0.6-1.4) mg/dl BUN/Creatinine Ratio 37.0 H (10-20) Calcium 7.5 L (8.5-10.1) mg/dl
[2021-12-13] MEDS ORDERED: LAVAGE SOLUTION 4000ML PO SCH (11:00)
[2021-12-13] MEDS: METHYLNALTREXONE BROMIDE 12 MG/0.6 ML VIAL SQ SCH (11:04)
--- NOTE | 2021-12-13 14:57 | XRay Report ---
KUB CLINICAL HISTORY: Abdominal pain, constipation, ileus. COMPARISON STUDY: CT of the abdomen and pelvis December 04, 2021 and KUB December 11, 2021. FINDINGS: Skeletal metastases are again noted. Bilateral common iliac artery stents are place. Modera te gaseous distention of the colon is again noted. Cecum measures 11.2 cm in caliber. The appearance is similar to exam of December 11, 2021. Prominent gas-filled loops of small bowel are also unchanged. IMPRESSION: No significant change in gaseous distention of the bowel. This favors an ileus. ACT 112: Negative or not required by law. Electronically signed by: Onel Poe M.D. 12/13/2021 2:56 PM
[2021-12-14 07:25] LABS: Albumin Level 3.1 gm/dl (3.4-5.0); BUN Creatinine Ratio 41.9 (10-20); Bilirubin Direct 0.2 mg/dl (0-0.2); Bilirubin,Total 0.6 mg/dl (0.2-1.0); Calcium 7.6 mg/dl (8.5-10.1); Est GFR (African American) 148.3 ml/min; Magnesium 2.2 mg/dl (1.7-2.4); Potassium 3.9 mmol/L (3.5-5.1); Total Protein 5.7 gm/dl (6.0-8.3)
[2021-12-14] MEDS: NICOTINE 21 MG/24 HR TDSY TD SCH (08:03)
[2021-12-14] MEDS: DOCUSATE SODIUM/SENNA 50/8.6MG TAB PO SCH ×2 (08:04→21:21)
[2021-12-14] MEDS: MoRPHine SULFATE CR 15 MG TABCR PO SCH ×2 (08:04→21:22)
[2021-12-14] MEDS: ROSUVASTATIN CALCIUM 20 MG TAB PO SCH (08:04)
[2021-12-14] MEDS: dexAMETHasone 4 MG in SYRINGE 0 ML IV SCH ×2 (08:04→21:21)
[2021-12-14] MEDS: bisacodyL 5 MG TABEC PO SCH ×2 (08:04→22:35)
[2021-12-14] MEDS: FAMOTIDINE 40 MG TABLET PO SCH (08:04)
[2021-12-14] MEDS: HEPARIN SOD 5,000 UNIT/0.5 ML VIAL SQ SCH ×2 (08:05→21:22)
[2021-12-14] MEDS: ASPIRIN 81 MG ECTAB PO SCH (08:05)
[2021-12-14] MEDS: LORATADINE 10 MG TAB PO SCH (08:05)
[2021-12-14] MEDS: GABAPENTIN 300 MG CAP PO SCH ×2 (08:05→21:21)
--- NOTE | 2021-12-14 09:08 | Hospitalist Progress Note ---
Date of Service December 14, 2021 Assessment & Plan (1) Lower extremity weakness: Plan Bilateral lower extremity Weakness Urinary retention status post Wheatley placement Patient presented with progressive BLE weakness since 2-3 days [employer] Denies new acute pain on his chronic pain from bone metastasis. Admitting imagings [CTAP/cervical CT/lumbar CT/thoracic CT] reviewed with multiple metastasis noted. MRI cervical showed extensive/multifocal osseous metastatic disease. Abnormal enhancing soft tissue within the anterior and posterior epidural space in the upper thoracic region as above is consistent with metastatic disease. MRI lumbar showed extensive skeletal metastatic disease within the lumbar spine which has mildly progressed since MRI of November 14, 2021. Minimal epidural extension of tumor at the T11 level. MRI thoracic showed evidence of extensive epidural tumor as detailed above, corresponding to the findings on the 12/04/[address] MRI spine results reviewed with Ortho spine Dr. Mcdaniel- No surgical intervention since multi vertebra involved Radiation Oncology on board. Doing radiation therapy Neurology on board recommended to taper IV dexamethasone 2mg IV BID x 5 days then 2 mg another [address] Law had discussed with Dr Howe Oncology about the MRI findings Continue PT/OT Continue wheatley for now Constipation Ileus Discussed with GI. Recommends changing to home Movantik and then BID miralax and daily senna on dc Hyponatremia Na 129 today Chronic Acute on chronic anemia: Baseline hemoglobin appears around 10-11, admitting hemoglobin of 8.2. Last Hb 9.3 Serum iron within normal limits. FOBT negative. 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 Dr. Howe had been informed regarding the hospitalization. We will provide him updates. He is on morphine extended release 30 mg twice daily as per palliative care and Percocet every 4 hours as needed. Rad onc on board DVT px; Heparin Full code. Follows with Palliative outpatient Plan for dc to [facility] tomorrow Admission and Anticipated Discharge Date Admission Date: December 04, 2021 Subjective Patient seen and examined. Has been responding well to bowel regimen Had multiple bowel movements since yesterday Denied any abdominal pain, nausea or vomiting Denies any chest pain, cough or shortness of breath. Low back pain is controlled on current regime Still has lower extremity weakness and numbness Physical Exam Constitutional: no acute distress Eyes: PERRL, conjunctivae normal, anicteric sclerae ENMT: external ear and nose normal, oropharynx normal Respiratory: normal respiratory effort, lungs clear to auscultation Cardiovascular: Rate/Rhythm: regular rate and regular rhythm S1 S2 Gastrointestinal (Abdomen): Soft, mildly distended but improved compared to yesterday, nontender, +BS Musculoskeletal: No pedal edema Neurologic: PERRL, EOMI, accommodation nl, no face palsy, no dysarthria Paraplegia Sensory deficits in lower extremities to fine touch Psychiatric: A+Ox3, euthymic affect Genitourinary: Wheatley in situ Results & Data Results & Data ([facility]) Vital Signs (Past 12 Hours) Vital Signs Temp Pulse Pulse Pulse Resp BP BP 12/14/21 07:46 36.8 C 89 20 133/77 12/14/21 07:03 93 H 12/14/21 03:59 36.8 C 90 18 130/74 12/13/21 23:31 36.6 C 96 H 18 128/74 12/13/21 23:23 103 H Pulse Ox O2 Del Method O2 Flow Rate 12/14/21 07:46 96 Nasal Cannula 2 12/14/21 07:03 12/14/21 03:59 93 Nasal Cannula 2 12/13/21 23:31 91 Nasal Cannula 2 12/13/21 23:23 Laboratory Results Abnormal lab results 12/13/21 12/14/21 Range/Units 10:57 06:14 Sodium 129 L (136-145) mmol/L Creatinine 0.43 L (0.6-1.4) mg/dl BUN/Creatinine Ratio 41.9 H (10-20) Osmolality 269 L (280-300) mOsm/kg Calcium 7.6 L (8.5-10.1) mg/dl Alkaline Phosphatase 174 H (34-104) U/L Total Protein 5.7 L (6.0-8.3) gm/dl Albumin 3.1 L (3.4-5.0) gm/dl
--- NOTE | 2021-12-14 11:28 | Gastroenterology Progress Note ---
Date of Service December 14, 2021 Assessment & Plan (1) Constipation: Plan 56 year old male with metastatic prostate CA on chemo/radiation admitted with weakness with narcotic induced ileus/constipation. Improved today. At home was on Movantik 25mg QAM, Now on Senna/Docusate 2 and completed a Golytely purge. Had one dose of Relistor. Responding well w multiple BMs today. On discharge would increase bowel regime: Continue Movantik 25mg daily plus Miralax BID and one Senna daily. Could then adjust as needed. Admission and Anticipated Discharge Date Admission Date: December 04, 2021 Supervising Physician Co-Signing Physician Notes Patient moving his bowels. Much improved in terms of his exam. Agree with further plan of care as documented. Subjective 56 yr old male w metastatic prostate cancer, unable to ambulate due to weak legs. Tells me feels better today. Passed two fairly large liquid brown BMs thus far this morning. On exam abd w mild/mod soft distention Continues to report abdominal distention. Denied any abdominal pain. Reports back pain is controlled on current regimen. Reports constipation. Not passing flatus. Had small bowel movement this morning. Reported some nausea. Denies any chest pain, cough or shortness of breath. Still has lower extremity weakness and numbness Review of Systems Review of Systems: ROS: Gen: + weakness; No fevers No confusion Eyes: No eye redness, or pain, no recent vision changes Nose/Throat: no pain, no post nasal drip Resp: No SOB, no cough Cardio: No palpitations/irregular beats, no chest pain GI: As per HPI, otherwise (-) : Denies pain on urination Skin: No jaundice, itching or new rashes Physical Exam Constitutional: + ill appearing (chronically), average body habitus and cooperative generalized weakness ENMT: external ear and nose normal, oropharynx normal Neck: trachea midline, no thyromegaly Respiratory: normal respiratory effort, lungs clear to auscultation Cardiovascular: RRR, no murmur, no edema Gastrointestinal (Abdomen): soft, mild/moderate distention, hypoactive BS Skin: no rashes, warm and dry Results & Data ([facility]) Vital Signs (Past 12 Hours) Vital Signs Temp Pulse Pulse Pulse Resp BP BP 12/14/21 08:00 12/14/21 07:46 36.8 C 89 20 133/77 10/27/22 07:03 93 H 12/14/21 03:59 36.8 C 90 18 130/74 12/13/21 23:31 36.6 C 96 H 18 128/74 12/13/21 23:23 103 H Pulse Ox O2 Del Method O2 Flow Rate 12/14/21 08:00 Nasal Cannula 2 12/14/21 07:46 96 Nasal Cannula 2 12/14/21 07:03 12/14/21 03:59 93 Nasal Cannula 2 12/13/21 23:31 91 Nasal Cannula 2 12/13/21 23:23 Laboratory Results WBC 5, Hb 10.5, Hct 30.8, Plts 242, Na 136, K 3.5, Cl 105, CO2 22, BUN 7, Cr 0.5, glucose 86. Diagnostic Findings Abd X-ray 12/13/21: No significant change in gaseous distention of the bowel. This favors an ileus. (1) Constipation Constipation type: unspecified constipation type Qualified Code(s): K59.00 - Constipation, unspecified
[2021-12-15 06:58] LABS: BUN Creatinine Ratio 35.6 (10-20); Calcium 7.8 mg/dl (8.5-10.1); Creatinine Clr Calc Pharmacy 163.4 ml/min; Est GFR (African American) 145.6 ml/min; Est GFR (Non-African American) 125.6 ml/min; Magnesium 2.1 mg/dl (1.7-2.4); Phosphorus 3.5 mg/dl (2.5-4.9)
[2021-12-15] MEDS: bisacodyL 5 MG TABEC PO SCH (09:32)
[2021-12-15] MEDS: MoRPHine SULFATE CR 15 MG TABCR PO SCH (09:32)
[2021-12-15] MEDS: METHYLNALTREXONE BROMIDE 12 MG/0.6 ML VIAL SQ SCH (09:33)
[2021-12-15] MEDS: ROSUVASTATIN CALCIUM 20 MG TAB PO SCH (09:33)
[2021-12-15] MEDS: dexAMETHasone 4 MG in SYRINGE 0 ML IV SCH (09:33)
[2021-12-15] MEDS: HEPARIN SOD 5,000 UNIT/0.5 ML VIAL SQ SCH (09:33)
[2021-12-15] MEDS: NICOTINE 21 MG/24 HR TDSY TD SCH (09:34)
[2021-12-15] MEDS: DOCUSATE SODIUM/SENNA 50/8.6MG TAB PO SCH (09:34)
[2021-12-15] MEDS: LORATADINE 10 MG TAB PO SCH (09:34)
[2021-12-15] MEDS: ASPIRIN 81 MG ECTAB PO SCH (09:34)
[2021-12-15] MEDS: GABAPENTIN 300 MG CAP PO SCH (09:34)
[2021-12-15] MEDS: FAMOTIDINE 40 MG TABLET PO SCH (09:34)
[2021-12-15 11:23] VITALS: TEMP 97.5; O2SAT 92
--- NOTE | 2021-12-15 12:31 | Discharge Summary ---
Discharge Summary Date of Service December 15, 2021 Notes For Next Care Provider Follow up recovery at rehab Follow up response to radiation therapy Needs to follow up with his Oncologist and Floor Care Technician Medication Changes From Visit Dexamethasone taper per Neurology. 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 Howe], tobacco use disorder, PAD, HLD, CAD, hyperplastic polyp of descending colon, GERD, HTN presented to our ED 12/04/2021 with complaint of progressive weakness of both lower extremities. Per patient, he was ambulating okay prior to 12/02/2021, he started feeling weak in his both lower extremities, progressing daily, now he cannot stand due to w eakness, and falls. He denies any loss of control over bowel or bladder movement, he denies any worsening pain, he does have chronic pain due to cancer status/bone metastasis which are under control with pain medications. Patient denies headache or sore throat or cough. Patient does report some occasional short of breath likely secondary to pain when trying to move in bed, patient reported feeling some dizziness on and off, ongoing weakness/tired feeling/exertion lately. Patient reports appetite okay, denies nausea or vomiting. Patient reports blood pressure lately and has discontinued his losartan 2 weeks ago [facility] [employer]. Patient denies fever chills. Of note, patient presented to the ED over the weekend due to problems with passing urine and moving bowels, was put on Wheatley at the time and given laxatives, patient currently on Wheatley, and reports moving bowels okay now. Patient is a current smoker, smokes 1 packs a day. Has not drank any alcohol in the last 6 months, used to drink occasionally. Denies any use of recreational drugs or marijuana. 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 Full code Medications reviewed with the patient personally. Admission Exam Per Admitting Provider GENERAL: Alert and oriented x3. NAD, on 2L NC O2. HEENT: No pallor, no icterus. Pupils equal, round and reactive to light. Oral mucosa moist. NECK: No JVD, no neck masses. HEART: S1 and S2 heard. Regular rate and rhythm. No murmur, no gallop. RESPIRATORY SYSTEM: Normal AP diameter. No accessory muscle use. No wheezing, no crackles. ABDOMEN: Soft, bowel sounds present, nontender, no distention. CENTRAL NERVOUS SYSTEM: No facial droop. Speech is clear. Obeys simple commands. Moves extremities. EXTREMITIES: Trace/1+ edema, no erythema seen. Power: 2/5 BLE w/ 1-2/5 dorsiflexion of foot and 4/5 plantar flexion Principal Dx & Hospital Course #1 = Principal Diagnosis (1) Lower extremity weakness: Plan Bilateral lower extremity Weakness Urinary retention status post Wheatley placement History of metastatic castration resistant adenocarcinoma prostate: Patient presented with progressive BLE weakness since 2-3 days prior to presentation Admitting imagings [CTAP/cervical CT/lumbar CT/thoracic CT] reviewed with multiple metastasis noted. MRI cervical showed extensive/multifocal osseous metastatic disease. Abnormal enhancing soft tissue within the anterior and posterior epidural space in the upper thoracic region as above is consistent with metastatic disease. MRI lumbar showed extensive skeletal metastatic disease within the lumbar spine which has mildly progressed since MRI of November 14, 2021. Minimal epidural extension of tumor at the T11 level. MRI thoracic showed evidence of extensive epidural tumor as detailed above, corresponding to the findings on the 12/04/[address] MRI spine results reviewed with Ortho spine Dr. Mcdaniel- No surgical intervention since multi vertebra involved Metastatic cancer with myelopathy Radiation Oncology reviewed and started radiation therapy while inpatient. He will continue with this next week from rehab Discussed with Neurologist Dr Carlton. He agrees with dexamethasone taper and then patient to continue home prednisone after completing taper and following up with his Oncologist Patient to follow up with his Oncologist Dr Howe. also noted they plan to see a second Oncologist and will like imaging burned in CD. Radiology informed Continue wheatley for now and voiding trial may be attempted at rehab Constipation Ileus Likely due to opioid induced +/-metastasis Improved with relistor and laxatives inpatient GI recommend continuing Movantik on discharge. Start miralax BID and senna daily Hyponatremia Na 128 today Chronic Acute on chronic anemia: Baseline hemoglobin appears around 10-11, admitting hemoglobin of 8.2. Last Hb 9.3 Discharge Exam Constitutional no acute distress Eyes PERRL, conjunctivae normal, anicteric sclerae ENMT external ear and nose normal, oropharynx normal Respiratory normal respiratory effort, lungs clear to auscultation Cardiovascular Rate/Rhythm: regular rate and regular rhythm S1 S2 Gastrointestinal (Abdomen) Soft, mild distended, nontender, +bowel sounds Musculoskeletal No pedal edema Neurologic PERRL, EOMI, accommodation nl, no face palsy, no dysarthria Paraplegic. Sensory deficits in lower extremities Psychiatric A+Ox3, euthymic affect Updated Medication List Medication Instructions Recorded Confirmed Type coenzyme Q10 100 mg capsule 200 mg PO DAILY 07/20/21 12/04/21 History famotidine 40 mg tablet (Pepcid) 40 mg PO DAILY 07/20/21 12/04/21 History loratadine 10 mg tablet 10 mg PO DAILY 07/20/21 12/04/21 History rosuvastatin 20 mg tablet 20 mg PO DAILY 07/20/21 12/04/21 History aspirin 81 mg tablet,delayed 81 mg PO DAILY 09/29/21 12/04/21 History release oxycodone-acetaminophen 10 mg-325 1 tab PO Q4H PRN Pain 10/03/21 12/04/21 History mg tablet (Percocet) ondansetron HCl 8 mg tablet 8 mg PO Q8H PRN Nausea 10/23/21 12/04/21 History prochlorperazine maleate 10 mg 10 mg PO Q6H PRN Nausea 10/23/21 12/04/21 History tablet gabapentin 300 mg capsule 300 mg PO BID 12/03/21 12/04/21 History morphine 30 mg tablet,extended 30 mg PO BID 12/03/21 12/04/21 History release naloxegol 25 mg tablet (Movantik) 25 mg PO QAM 12/03/21 12/04/21 History dexamethasone 4 mg tablet See Rx Instructions .Route 12/15/21 12/04/21 Rx .COMPLEX PRN Nausea #8 tabs polyethylene glycol 3350 17 17 g PO BID #238 grams 12/15/21 Rx gram/dose oral powder (Miralax) prednisone 5 mg tablet 10 mg PO QAM #1 tab 12/15/21 12/04/21 Rx sennosides 8.6 mg tablet (senna) 8.6 mg PO DAILY #30 tabs 12/15/21 Rx Hospital Stay Data Consultations 12/04/21 12:38 ED Decision to Admit Stat 12/04/21 13:06 Consult Neurology Routine 12/06/21 08:00 Consult Radiation Oncology Routine 12/11/21 11:33 Consult Gastroenterology Routine 12/15/21 10:57 Burn CD for patient Routine Diagnostic Imagining Performed 12/04/21 08:58 CT abd pelvis IV con only Stat CT cervical spine wo con Stat CT lumbar spine wo con Stat CT thoracic spine wo con Stat 12/05/21 16:51 MR thoracic spine wo/w con Urgent 12/05/21 16:52 MR lumbar spine wo/w con Urgent 12/05/21 16:53 MR cervical spine wo/w con Urgent 12/06/21 CT guide rad therapy chest Routine Pending Results Patient Have Any Pending Studies at Discharge: No Discharge Instructions Given to Patient (Per Discharging Provider) Mr Mcclain. You came to the hospital complaining of worsening lower extremity weakness. You were evaluated and noted to have metastatic cancer that has spread to the spine with compression of the spinal cord. You were evaluated and started on radiation therapy. You are going to continue this while at rehab. You were started on dexamethasone which is being tapered. Please take 2mg twice a day for 5 days and then 2mg for 5 days then resume your usual prednisone. Continue your Movantik and daily senna. Start miralax twice daily. Continue wheatley catheter for now. Voiding trial may be attempted at rehab. Please ensure follow up with your Oncologist and Palliative care doctor. It was a pleasure taking care of you. Total Time Total Time Spent Total Time Spent (In Minutes): 50 Total Time Includes: Examination of the Patient, Discharge Planning, Medication Reconciliation and Communication With Other Providers
[2021-12-15 12:35] VITALS: BP 122/75; PULSE 93
[2021-12-15] MEDS ORDERED: dexAMETHasone 2 MG in SYRINGE 0 ML IV SCH (21:00)
== END 2021-12-15 13:30 | DRG 543 ==
LOC: ED 08:26 → SUATTDRO 13:04 → 2W 13:04